=== PATIENT | female | born 1930 | race African-American/Black ===

== ENCOUNTER 2017-06-06 22:05 | Inpatient (IN) | payer MEDICARE, BC, MEDICAID ==
[~2017-06-06] VITALS: Ht 167.6 cm; Wt 52.2 kg
[~2017-06-06 22:05] MED LIST: ACETAMINOP500 MG/51 ORAL; ACETAMINOPHEN-1 EAC1 ORAL; ALBUTEROL2.5 MG/3 M INH; ALLEGRA ALLERGY60 M1 PO; AMBIEN5 MG ORAL; ASPIRIN81 MG ORAL; ATIVAN0.5 MG ORAL; ATROVENT HFA12.9 GM IH; CALCIUM 500 +1 EAC7 PO; CALMOSEPTINE O3.5 G1 TP; CEFTAZIDIM1 GM/50 ML IVPB; CELEBREX200 MG ORAL; CILOXAN 0.3% O1 DROP RIGHT EYE; CIPROFLOXACIN500 M2 ORAL; COLACE100 MG ORAL; COZAAR50 MG ORAL; DIURIL25 MG ORAL; FLEET ENEMA133 ML RECTAL; FLONASE16 GM NASAL; GABAPENTIN100 MG ORAL; GABAPENTIN300 MG/61 ORAL; IBUPROFEN200 MG ORAL; IBUPROFEN600 MG ORAL; IBUPROFEN800 MG PO; LEVOFLOXACIN500 MG ORAL; LORATADINE10 M2 PO; MELATONIN3 MG ORAL; MELOXICAM7.5 MG PO; MIRALAX17 G2 ORAL; MOM30 ML ORAL; MOM30 ML PO; MOTRIN400 MG PO; MULTIVITAMIN PO; MULTIVITAMINS1 EAC8 ORAL; MYLANTA30 M1 PO; NEURONTIN100 MG ORAL; NITROFURANTOIN100 M2 ORAL; OMEPRAZOLE20 M2 ORAL; PERCOCET 5-3251 EACH ORAL; PRO STAT ORAL; PROMETHAZINE V237 ML ORAL; RANITIDINE HCL150 MG ORAL; REFRESH TEARS15 ML OP; SINEMET 25-1001 EAC1 ORAL; SINEMET 25-1001 EAC1 PO; SINEMET 25/1001 EA ORAL; SPIRIVA18 MCG INH; TRIPLE ANTIBIO1 EAC1 TP; TYLENOL325 MG ORAL; VANCOMYCIN1 GM/2502 IVPB; VENTOLIN HFA18 GM INH; VICODIN 5-5001 EACH PO; ZANTAC150 MG GT; ZINC OXIDE30 GM TOPIC; ZOFRAN4 M3 ORAL; ZOVIRAX800 MG ORAL; [UNRECOGNIZED DRUG - OTHER] PO; [UNRECOGNIZED DRUG - OTHER] PO
[2017-06-06] MEDS ORDERED: SINEMET 25-1001 EAC1 GT (22:06)
[2017-06-06] MEDS ORDERED: MAGNESIUM500 MG GT (22:06)
[2017-06-06] MEDS ORDERED: MIRALAX17 G2 GT (22:06)
[2017-06-06] MEDS ORDERED: LOSARTAN POTASS50 MG GT (22:06)
[2017-06-06] MEDS ORDERED: MULTIVITAMINS1 EAC2 GT (22:06)
[2017-06-06] MEDS ORDERED: Albuterol ud Inhalation HHN ONE (22:15)
--- NOTE | 2017-06-06 22:22 | Emergency Room Report ---
History of Present Illness General Chief Complaint: Upper Respiratory Illness Source: Medical Record, EMS Present Illness HPI Is an 86-year-old female with multiple medical problems. This include CVA/TIA. She is bed bound and in a [place] [facility]. At baseline she is confused. She presents with chief complaint of congestion and respiratory distress. Onset for one day. Increasing coughing. Increasing hypoxia with a low of 90% on room air. No fever or chills. No nausea no vomiting. Allergies: Coded Allergies: CODEINE (Verified Allergy, Unknown, 04/13/17) LORAZEPAM (Verified Allergy, Unknown, 04/11/17) reaction unknown MEPERIDINE (Unverified Allergy, Unknown, 09/03/14) PENICILLINS (Verified Allergy, Unknown, 03/06/13) SULFA (SULFONAMIDE ANTIBIOTICS) (Verified Allergy, Unknown, 03/06/13) Patient History Past Medical History: see triage record, old chart reviewed, HTN, AFib, CVA/TIA Past Surgical History: other Pertinent Family History: none Social History: Denies: smoking Now: No Immunizations: other Reviewed Nursing Documentation: PMH: Agreed, PSxH: Agreed Nursing Documentation-PMH Past Medical History: No History, Except For Hx Hypertension: Yes Hx Pacemaker: No Hx Asthma: No Hx COPD: Yes - Respiratory failure Hx Diabetes: No Hx Cancer: No Hx Gastrointestinal Problems: Yes - dysphagia, G-tube, GERD Hx Dialysis: No History Of Psychiatric Problem: Yes - Alzheimers Hx Neurological Problems: Yes - Parkinsons Hx Cerebrovascular Accident: Yes Hx Dementia: Yes Hx Parkinson's Disease: Yes Hx Seizures: No Hx Spinal Cord Injury: Yes Hx Speech Problem: Yes Hx Dizziness: Yes Hx Headaches: Yes Hx Dysphasia: Yes Hx Weakness: Yes Hx Fatigue: Yes Review of Systems Eye: Denies: blurred vision, eye pain ENT: Denies: ear pain, nose congestion, throat swelling Respiratory: Reports: cough, shortness of breath Cardiovascular: Denies: chest pain, palpitations Gastrointestinal: Denies: abdominal pain, diarrhea, nausea, vomiting Musculoskeletal: Denies: back pain, joint pain Skin: Denies: rash Neurological: Denies: headache, numbness Endocrine: Denies: increased thirst, increased urine Hematologic/Lymphatic: Denies: easy bruising All Other Systems: negative except mentioned in HPI Physical Exam Vital Signs Date Time Temp Pulse Resp B/P Pulse Ox O2 Delivery O2 Flow Rate FiO2 06/06/17 21:53 97.2 88 18 147/73 97 Nasal Cannula 3.0 vitals with hypoxia Sp02 EP Interpretation: abnormal General Appearance: mild distress Head: normocephalic, atraumatic Eyes: bilateral eye other - Eyes are closed ENT: hearing grossly normal, normal pharynx Neck: full range of motion, supple, no meningismus Respiratory: chest non-tender, rhonchi Cardiovascular #1: regular rate, rhythm, no murmur Gastrointestinal: normal bowel sounds, non tender, no mass, no organomegaly, no bruit, non-distended Musculoskeletal: other - Contracted Skin: warm/dry Medical Decision Making Diagnostic Impression: Primary Impression: Upper respiratory infection Qualified Codes: J06.9 - Acute upper respiratory infection, unspecified Additional Impressions: Pneumonia Qualified Codes: J18.1 - Lobar pneumonia, unspecified organism UTI (urinary tract infection) Qualified Codes: N30.00 - Acute cystitis without hematuria Proteinuria Qualified Codes: R80.9 - Proteinuria, unspecified ER Course Patient presents with a cough. Most likely aspiration pneumonia versus viral etiology. White count normal. She has purulent urine output with a Tucker. She grew out Escherichia coli in the past. Sputum in the past rule out MRSA and Pseudomonas. Patient placed on cefepime and vancomycin. She is more alert after IV fluid. Will admit for further workup. I discussed the case with Dr. Cordova for admission and Dr. Cunningham orders. Laboratory Tests Test 06/06/17 22:00 06/06/17 22:25 White Blood Count 9.1 K/UL (4.8-10.8) Red Blood Count 3.51 M/UL (4.20-5.40) L Hemoglobin 12.1 G/DL (12.0-16.0) Hematocrit 34.6 % (37.0-47.0) L Mean Corpuscular Volume 99 FL (80-99) Mean Corpuscular Hemoglobin 34.4 PG (27.0-31.0) H Mean Corpuscular Hemoglobin Concent 34.9 G/DL (32.0-36.0) Red Cell Distribution Width 13.0 % (11.6-14.8) Platelet Count 478 K/UL (150-450) H Mean Platelet Volume 6.4 FL (6.5-10.1) L Neutrophils (%) (Auto) 78.5 % (45.0-75.0) H Lymphocytes (%) (Auto) 17.0 % (20.0-45.0) L Monocytes (%) (Auto) 3.6 % (1.0-10.0) Eosinophils (%) (Auto) 0.1 % (0.0-3.0) Basophils (%) (Auto) 0.8 % (0.0-2.0) Prothrombin Time 10.8 SEC (9.30-11.50) Prothromb Time International Ratio 1.0 (0.9-1.1) Activated Partial Thromboplast Time 32 SEC (23-33) Sodium Level 130 mEQ/L (135-145) L Potassium Level 4.3 mEQ/L (3.4-4.9) Chloride Level 85 mEQ/L (98-107) L Carbon Dioxide Level 30 mEQ/L (20-30) Anion Gap 15 (5-15) Blood Urea Nitrogen 13 mg/dL (7-23) Creatinine 0.4 mg/dL (0.5-0.9) L Estimat Glomerular Filtration Rate mL/min (>60) Glucose Level 163 mg/dL (74-106) H Lactic Acid Level 1.30 mmol/L (0.66-2.22) Calcium Level 9.7 mg/dL (8.6-10.2) Total Bilirubin 0.3 mg/dL (0.0-1.2) Aspartate Amino Transf (AST/SGOT) 27 U/L (5-40) Alanine Aminotransferase (ALT/SGPT) 8 U/L (3-33) Alkaline Phosphatase 94 U/L (35-104) Total Creatine Kinase 54 U/L (26-140) Creatine Kinase MB 2.5 ng/mL (< 3.8) Creatine Kinase MB Relative Index 4.6 Troponin I < 0.30 ng/mL (<=0.30) Pro-B-Type Natriuretic Peptide 229 pg/mL (0-450) Total Protein 7.5 g/dL (6.6-8.7) Albumin 3.3 g/dL (3.5-5.2) L Globulin 4.2 g/dL Albumin/Globulin Ratio 0.7 (1.0-2.7) L Urine Color Pale yellow Urine Appearance Very cloudy Urine pH 7 (4.5-8.0) Urine Specific [place] 1.010 (1.005-1.035) Urine Protein 3+ (NEGATIVE) H Urine Glucose (UA) Negative (NEGATIVE) Urine Ketones Negative (NEGATIVE) Urine Occult Blood 4+ (NEGATIVE) H Urine Nitrite Negative (NEGATIVE) Urine Bilirubin Negative (NEGATIVE) Urine Urobilinogen Normal MG/DL (0.0-1.0) Urine Leukocyte Esterase 3+ (NEGATIVE) H Urine RBC Tntc /HPF (0 - 2) H Urine WBC Tntc /HPF (0 - 2) H Urine Squamous Epithelial Cells Few /LPF (NONE/OCC) Urine Bacteria Many /HPF (NONE) H Urine Yeast Many /HPF (NONE) H Lab Results Impression labs unremarkable EKG Diagnostic Results EKG Time: 22:21 Rate: normal Rhythm: NSR ST Segments: no acute changes Rhythm Strip Diag. Results Rhythm Strip Time: 22:21 EP Interpretation: yes Rate: 90 Rhythm: NSR, no PVC's, no ectopy Chest X-Ray Diagnostic Results Chest X-Ray Diagnostic Results : Chest X-Ray Ordered: Yes # of Views/Limited/Complete: 1 View Indication: Shortness of Breath EP Interpretation: Yes Interpretation: no effusion, no pneumothorax, other - Atelectasis right lower lobe Impression: Other - Atelectasis Interpreting ER Provider: Electronically signed by Juwan Cortez MD Last Vital Signs Date Time Temp Pulse Resp B/P Pulse Ox O2 Delivery O2 Flow Rate FiO2 06/06/17 21:53 97.2 88 18 147/73 97 Nasal Cannula 3.0 Status: improved Disposition: ADMITTED INPATIENT Condition: Serious JUWAN CORTEZ M.D. Jun 06, 2017 22:22
[2017-06-06 22:29] VITALS: BP 147/47
[2017-06-06 22:38] LABS: BASOPHILS % (AUTO) 0.8 % (0.0-2.0); EOSINOPHILS % (AUTO) 0.1 % (0.0-3.0); MEAN CORPUSCULAR HEMOGLOBIN 34.4 PG (27.0-31.0); MEAN CORPUSCULAR HGB CONC 34.9 G/DL (32.0-36.0); MEAN CORPUSCULAR VOLUME 99 FL (80-99); MEAN PLATELET VOLUME 6.4 FL (6.5-10.1); MONOCYTES % (AUTO) 3.6 % (1.0-10.0); NEUTROPHILS % (AUTO) 78.5 % (45.0-75.0); PLATELET COUNT 478 K/UL (150-450); RED BLOOD COUNT 3.51 M/UL (4.20-5.40); WHITE BLOOD COUNT 9.1 K/UL (4.8-10.8)
[2017-06-06] MEDS ORDERED: Vancomycin 1gm inj IVPB ONE (22:40)
[2017-06-06] MEDS ORDERED: Cefepime 1gm vial ONE (22:40)
[2017-06-06] MEDS ORDERED: Vancomycin 1 GM in NS 275 ML IVPB ONE (22:45)
[2017-06-06] MEDS ORDERED: Cefepime HCl 1 GM in D5W 55 ML IVPB ONE (22:45)
[2017-06-06 22:52] LABS: APPEARANCE,URINE VERY CLOUDY; KETONES,URINE NEGATIVE (NEGATIVE); LEUKOCYTE ESTERASE ,URINE 3+ (NEGATIVE); NITRITE,URINE NEGATIVE (NEGATIVE); PH,URINE 7 (4.5-8.0); PROTEIN,URINE 3+ (NEGATIVE); UROBILINOGEN,URINE NORMAL MG/DL (0.0-1.0)
[2017-06-06 22:53] LABS: TROPONIN I < 0.30 ng/mL (<=0.30)
[2017-06-06 23:00] VITALS: BP 127/74
[2017-06-06 23:03] LABS: PROTHROMBIN TIME 10.8 SEC (9.30-11.50)
[2017-06-06 23:09] LABS: RBC,URINE TNTC /HPF (0 - 2)
[2017-06-06 23:10] LABS: BACTERIA,URINE MANY /HPF; SQUAMOUS EPITHELIAL CELL,UR FEW /LPF (NONE/OCC); WBC,URINE TNTC /HPF (0 - 2); YEAST,URINE MANY /HPF
[2017-06-06 23:10] LABS: ALANINE AMINOTRANSFERASE 8 U/L (3-33); ALBUMIN/GLOBULIN RATIO 0.7 (1.0-2.7); ANION GAP 15 (5-15); ASPARTATE AMINO TRANSFERASE 27 U/L (5-40); CALCIUM 9.7 mg/dL (8.6-10.2); CARBON DIOXIDE 30 mEQ/L (20-30); CHLORIDE 85 mEQ/L (98-107); CREATININE 0.4 mg/dL (0.5-0.9); HEMOLYSIS 89; POTASSIUM 4.3 mEQ/L (3.4-4.9); SODIUM 130 mEQ/L (135-145); TOTAL PROTEIN 7.5 g/dL (6.6-8.7)
[2017-06-06 23:20] LABS: CKMB 2.5 ng/mL (< 3.8)
[2017-06-07] VITALS (7 sets, daily range): BP systolic 118–158; BP diastolic 66–85
[2017-06-07] MEDS: Losartan 50mg tab GT SCH (08:51)
[2017-06-07] MEDS: Sinemet 25/100 tab GT SCH ×3 (08:52→18:00)
[2017-06-07] MEDS ORDERED: Miralax 17gm pkt GT SCH (09:00)
[2017-06-07] MEDS ORDERED: Cefepime 2gm/D5W 110ml IV SCH ×2 (09:00)
[2017-06-07] MEDS ORDERED: Miralax 17gm pkt ORAL PRN (11:30)
--- NOTE | 2017-06-07 11:42 | Consultation ---
History of Present Illness General Date patient seen: Jun 07, 2017 Chief Complaint: Upper Respiratory Illness Referring physician: Dr. echeverria Reason for Consultation: Dyspnea Present Illness HPI 86-year-old female with multiple medical problems including [id number] , Gtube, cachexia, bed bound, CVA/TIA, [place] [facility] resident presented with chief complaint of congestion and respiratory distress for one day. Pt cant' give any history and all information is obtained from the chart. Allergies: Coded Allergies: CODEINE (Verified Allergy, Unknown, 04/13/17) LORAZEPAM (Verified Allergy, Unknown, 04/11/17) reaction unknown MEPERIDINE (Unverified Allergy, Unknown, 09/03/14) PENICILLINS (Verified Allergy, Unknown, 03/06/13) SULFA (SULFONAMIDE ANTIBIOTICS) (Verified Allergy, Unknown, 03/06/13) Medication History Scheduled Carbidopa/Levodopa 25-100 Mg* (Sinemet 25-100 Mg Tablet*), 1 TAB GT THREE TIMES A DAY, (Reported) Losartan Potassium* (Losartan Potassium*), 50 MG GT DAILY, (Reported) Multivitamins* (Multivitamins*), 1 TAB GT DAILY, (Reported) Polyethylene Glycol 3350* (Miralax*), 17 GM GT DAILY, (Reported) Miscellaneous Medications Magnesium Oxide (Magnesium), 800 MG GT, (Reported) Discontinued Medications Acetaminophen (Acetaminophen), 650 MG ORAL Q4H, (Reported) Discontinued Reason: Therapy completed Acyclovir* (Zovirax*), 800 MG ORAL THREE TIMES A DAY, (Reported) Discontinued Reason: Therapy completed Carbidopa/Levodopa 25-100 Mg* (Sinemet 25-100 Mg Tablet*), 1 TAB ORAL THREE TIMES A DAY, (Reported) Discontinued Reason: Therapy completed Docusate Sodium* (Colace*), 100 MG ORAL DAILY, (Reported) Discontinued Reason: Therapy completed Gabapentin* (Gabapentin*), 100 MG ORAL THREE TIMES A DAY, (Reported) Discontinued Reason: Therapy completed Ipratropium [place] (Atrovent Hfa), 12.9 GM IH, (Reported) Discontinued Reason: Therapy completed Levofloxacin (Levofloxacin*), 500 MG ORAL DAILY Discontinued Reason: Therapy completed Lorazepam* (Ativan*), 0.5 MG ORAL Q4HR PRN for For Anxiety, (Reported) Discontinued Reason: Therapy completed Losartan Potassium* (Cozaar*), 50 MG ORAL DAILY, (Reported) Discontinued Reason: Therapy completed Magnesium Hydroxide (Milk of Magnesia), 30 ML ORAL HS PRN for Constipation, ( Reported) Discontinued Reason: Therapy completed Meloxicam* (Meloxicam*), 7.5 MG PO DAILY, (Reported) Discontinued Reason: Therapy completed Menthol/Zinc Oxide (Calmoseptine Ointment), 3.5 GM TP, (Reported) Discontinued Reason: Therapy completed Neomy Sulf/Bacitrac Zn/Poly (Triple Antibiotic Ointment), 1 EACH TP, (Reported) Discontinued Reason: Therapy completed Omeprazole (Omeprazole), 20 MG ORAL DAILY, (Reported) Discontinued Reason: Therapy completed Ondansetron* (Zofran*), 4 MG ORAL Q6H PRN for Nausea & Vomiting, (Reported) Discontinued Reason: Therapy completed Polyethylene Glycol 3350* (Miralax*), 17 GM ORAL QHS PRN for Constipation, ( Reported) Discontinued Reason: Therapy completed Ranitidine Hcl* (Zantac*), 150 MG ORAL HS, (Reported) Discontinued Reason: Therapy completed Ranitidine Hcl* (Zantac*), 150 MG GT TWICE A DAY, (Reported) Discontinued Reason: Therapy completed Tiotropium [place]* (Spiriva*), 1 PUFF INH DAILY, (Reported) Discontinued Reason: Therapy completed Vancomycin Hcl/D5w (Vancomycin-D5w 1 G/250 Ml), 1 GM IVPB Q24H Discontinued Reason: Therapy completed Zinc Oxide* (Zinc Oxide*), 1 APPLIC TOPIC FOUR TIMES A DAY, (Reported) Discontinued Reason: Therapy completed Zolpidem Tartrate* (Ambien*), 5 MG ORAL BEDTIME PRN for Insomnia, (Reported) Discontinued Reason: Therapy completed [multivit w/min], 1 TAB PO DAILY, (Reported) Discontinued Reason: Therapy completed Patient History Healthcare decision maker LISA BURTON Resuscitation status Full Code Advanced Directive on File No Past Medical/Surgical History Past Medical/Surgical History: (1) Severe malnutrition (2) Compression fracture of T12 vertebra (3) Alzheimer's dementia (4) CVA (cerebral infarction) (5) Altered mental status (6) Parkinsons disease (7) COPD (chronic obstructive pulmonary disease) Review of Systems All Other Systems: negative except mentioned in HPI Physical Exam General Appearance: cachetic Lines, tubes and drains: peripheral, central line HEENT: normocephalic, atraumatic Neck: non-tender, normal alignment Respiratory/Chest: chest wall non-tender, lungs clear Breasts: no masses Cardiovascular/Chest: normal peripheral pulses Abdomen: normal bowel sounds, non tender Genitourinary/Rectal: normal genital exam, normal rectal exam Extremities: normal range of motion, non-tender Skin Exam: normal pigmentation, warm/dry 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 Last 24 Hour Vital Signs Date Time Temp Pulse Resp B/P Pulse Ox O2 Delivery O2 Flow Rate FiO2 06/07/17 08:51 155/71 06/07/17 08:00 82 06/07/17 08:00 97.9 63 30 155/71 95 Nasal Cannula 3.0 06/07/17 08:00 94 20 Nasal Cannula 3.0 32 06/07/17 07:55 Nasal Cannula 3.0 32 06/07/17 07:55 95 Nasal Cannula 3.0 32 06/07/17 04:00 97.9 75 20 152/66 100 Nasal Cannula 2.0 06/07/17 03:42 82 06/07/17 01:10 97.5 84 20 158/85 100 Nasal Cannula 3.0 06/07/17 01:00 99.7 86 22 138/78 98 Nasal Cannula 3.0 32 06/07/17 00:58 99.7 86 22 138/78 98 Nasal Cannula 3.0 06/06/17 23:00 87 15 127/74 98 Nasal Cannula 3.0 06/06/17 22:33 88 19 100 Nasal Cannula 3.0 32 06/06/17 22:29 92 21 Nasal Cannula 3.0 06/06/17 22:29 100.0 90 24 147/47 100 Nasal Cannula 3.0 06/06/17 22:18 92 21 Nasal Cannula 3.0 32 06/06/17 22:18 92 21 97 Nasal Cannula 3.0 32 06/06/17 21:53 97.2 88 18 147/73 97 Nasal Cannula 3.0 Intake and Output 06/06/17 06/07/17 19:00 07:00 Intake Total 55 ml Output Total 650 ml Balance -595 ml IV Total 55 ml Output Urine Total 650 ml Laboratory Tests Test 06/06/17 22:00 06/06/17 22:25 White Blood Count 9.1 K/UL (4.8-10.8) Red Blood Count 3.51 M/UL (4.20-5.40) L Hemoglobin 12.1 G/DL (12.0-16.0) Hematocrit 34.6 % (37.0-47.0) L Mean Corpuscular Volume 99 FL (80-99) Mean Corpuscular Hemoglobin 34.4 PG (27.0-31.0) H Mean Corpuscular Hemoglobin Concent 34.9 G/DL (32.0-36.0) Red Cell Distribution Width 13.0 % (11.6-14.8) Platelet Count 478 K/UL (150-450) H Mean Platelet Volume 6.4 FL (6.5-10.1) L Neutrophils (%) (Auto) 78.5 % (45.0-75.0) H Lymphocytes (%) (Auto) 17.0 % (20.0-45.0) L Monocytes (%) (Auto) 3.6 % (1.0-10.0) Eosinophils (%) (Auto) 0.1 % (0.0-3.0) Basophils (%) (Auto) 0.8 % (0.0-2.0) Prothrombin Time 10.8 SEC (9.30-11.50) Prothromb Time International Ratio 1.0 (0.9-1.1) Activated Partial Thromboplast Time 32 SEC (23-33) Sodium Level 130 mEQ/L (135-145) L Potassium Level 4.3 mEQ/L (3.4-4.9) Chloride Level 85 mEQ/L (98-107) L Carbon Dioxide Level 30 mEQ/L (20-30) Anion Gap 15 (5-15) Blood Urea Nitrogen 13 mg/dL (7-23) Creatinine 0.4 mg/dL (0.5-0.9) L Estimat Glomerular Filtration Rate mL/min (>60) Glucose Level 163 mg/dL (74-106) H Lactic Acid Level 1.30 mmol/L (0.66-2.22) Calcium Level 9.7 mg/dL (8.6-10.2) Total Bilirubin 0.3 mg/dL (0.0-1.2) Aspartate Amino Transf (AST/SGOT) 27 U/L (5-40) Alanine Aminotransferase (ALT/SGPT) 8 U/L (3-33) Alkaline Phosphatase 94 U/L (35-104) Total Creatine Kinase 54 U/L (26-140) Creatine Kinase MB 2.5 ng/mL (< 3.8) Creatine Kinase MB Relative Index 4.6 Troponin I < 0.30 ng/mL (<=0.30) Pro-B-Type Natriuretic Peptide 229 pg/mL (0-450) Total Protein 7.5 g/dL (6.6-8.7) Albumin 3.3 g/dL (3.5-5.2) L Globulin 4.2 g/dL Albumin/Globulin Ratio 0.7 (1.0-2.7) L Urine Color Pale yellow Urine Appearance Very cloudy Urine pH 7 (4.5-8.0) Urine Specific [place] 1.010 (1.005-1.035) Urine Protein 3+ (NEGATIVE) H Urine Glucose (UA) Negative (NEGATIVE) Urine Ketones Negative (NEGATIVE) Urine Occult Blood 4+ (NEGATIVE) H Urine Nitrite Negative (NEGATIVE) Urine Bilirubin Negative (NEGATIVE) Urine Urobilinogen Normal MG/DL (0.0-1.0) Urine Leukocyte Esterase 3+ (NEGATIVE) H Urine RBC Tntc /HPF (0 - 2) H Urine WBC Tntc /HPF (0 - 2) H Urine Squamous Epithelial Cells Few /LPF (NONE/OCC) Urine Bacteria Many /HPF (NONE) H Urine Yeast Many /HPF (NONE) H Height (Feet): 5 Height (Inches): 6.00 Weight (Pounds): 115 Medications Current Medications Medications (Trade) Dose Ordered Sig/Mikaela Route PRN Reason Start Time Stop Time Status Last Admin Dose Admin Carbidopa/Levodopa (Sinemet 25/100) 1 ea THREE TIMES A DAY GT 06/07/17 09:00 07/07/17 08:59 06/07/17 08:52 Cefepime HCl 2 gm/ Dextrose 110 ml @ 220 mls/hr EVERY 12 HOURS IV 06/07/17 09:00 06/14/17 08:59 06/07/17 08:52 Losartan Potassium (Cozaar) 50 mg DAILY GT 06/07/17 09:00 07/07/17 08:59 06/07/17 08:51 Ondansetron HCl (Zofran) 4 mg Q6H PRN IVP Nausea & Vomiting 7/31/17 00:30 07/07/17 00:29 Polyethylene Glycol (Miralax) 17 gm DAILY GT 06/07/17 09:00 07/07/17 08:59 06/07/17 08:52 Vancomycin HCl 1 ea 1 ea DAILY PRN MISC Per rx protocol 06/07/17 04:00 07/07/17 03:59 Vancomycin HCl/ Dextrose (Vancomycin/D5W) 275 ml @ 183.708 mls/hr Q24H IVPB 06/07/17 23:00 06/12/17 22:59 Assessment/Plan Problem List: (1) Aspiration pneumonia ICD Codes: J69.0 - Pneumonitis due to inhalation of food and vomit SNOMED: 517169146 (2) UTI (urinary tract infection) ICD Codes: N39.0 - Urinary tract infection, site not specified SNOMED: 74960394 (3) COPD (chronic obstructive pulmonary disease) ICD Codes: J44.9 - Chronic obstructive pulmonary disease, unspecified SNOMED: 10087048 (4) Feeding by G-tube ICD Codes: Z93.1 - Gastrostomy status SNOMED: 252297269, 716333081 (5) Severe malnutrition ICD Codes: E43 - Unspecified severe protein-calorie malnutrition SNOMED: 03680374 (6) Parkinsons disease ICD Codes: G20 - Parkinson's disease SNOMED: 84561186 Assessment/Plan sullivan cultures IV antibiotics chest PT sputum for c/s respiratory treatment consider family meeting to change the code status. She needs to be DNR. LEELEE ADLER Jun 07, 2017 11:42
[2017-06-07] MEDS: DuoNeb 0.5-3(2.5)mg/3ml neb HHN SCH ×2 (12:23→19:41)
--- NOTE | 2017-06-07 13:13 | Wound Care Consultation ---
Wound Assessment Wound Assessment #1: Wound Present on Admission: Yes New Wound: No Status Change of Wound: No Wound Location Body Site Modif: left Wound Location Body Site: sacral Wound Type: pressure ulcer Olimpia Test: Does not Olimpia Pressure Ulcer Stage: III - resolving Wound Thickness: Full Thickness Wound Length: 2.0 Wound Width: 2.0 Wound Depth: <0.1 Percent of Wound [place]/Red: 100 Wound Drainage Amount: None Wound Drainage Odor: None/Absent Tissue Surrounding Wound: Macerated Wound General Appearance: Reddened Wound Assessment #2: Wound Number: #2 Wound Present on Admission: Yes New Wound: No Status Change of Wound: No Wound Location Body Site Modif: mid Wound Location Body Site: sacral Wound Type: pressure ulcer Olimpia Test: Does not Olimpia Pressure Ulcer Stage: I - noted site with fullthickness scar tissue Wound Length: 1.0 Wound Width: 1.0 Percent of Wound [place]/Red: 100 Wound Drainage Amount: None Wound Drainage Odor: None/Absent Tissue Surrounding Wound: Erythemic - intact Wound General Appearance: Reddened Wound Comment #1 left sacral pressure ulcer stage III (resolving). #2 Mid sacral pressure ulcer stage I noted with full thickness scar tissue. Recommendation. -Local wound care as ordered. -Apply low air loss SPR mattress. -Turn and reposition. -Keep clean and dry. -Optimize nutrition. -Offload affected sites. -Offload heels and both feet. -Avoid shear and friction. -Assess and notify MD for any change of condition noted to skin. NOEMY PEDERSEN Jun 07, 2017 13:13
--- NOTE | 2017-06-07 13:31 | Consultation ---
Consult Note Consult Note asked to eval for hyponatremia- Under my care at [facility] - Being treated for C dif Coded Allergies: MEPERIDINE (Unverified Allergy, Unknown, 09/03/14) PENICILLINS (Verified Allergy, Unknown, 03/06/13) SULFA (SULFONAMIDE ANTIBIOTICS) (Verified Allergy, Unknown, 03/06/13) Past Medical History: HTN, CVA/TIA, dementia Hx Cardiac Problems: Yes Hx Hypertension: Yes Hx COPD: Yes - HYPOTHYROIDISM Hx Gastrointestinal Problems: Yes Hx Cerebrovascular Accident: Yes Hx Dementia: Yes Hx Parkinson's Disease: Yes Hx Speech Problem: Yes - Slured Hx Dysphasia: Yes Hx Weakness: Yes PAST HISTORY_ 1. Altered level of consciousness, l 2. History of fall and left shoulder pain probably secondary to rotator cuff tear, left shoulder osteoarthritis. 3. Hypertension. 4. Parkinson. 5. Right-sided Ruiz palsy. 6. Thyroid disease with history of goiter, status post treatment. 7. Bilateral hip replacements. 8. Spinal stenosis. 9. PEG Examined- Data reviewed Assessment/Plan status: 1) Aspiration pneumonia (2) UTI (urinary tract infection) (3) COPD (chronic obstructive pulmonary disease) (4) Feeding by G-tube (5) Severe malnutrition (6) Parkinsons disease (7) HypoThyroidism (8) C dif (9) Low na , h/o SIADH Plan; Vanco GT Stool C dif Urine studies Monitor lytes Per consultants JANUARY KEY Jun 07, 2017 13:31
[2017-06-07] MEDS ORDERED: Sterile Water Irrig 1000ml IRRIG ONE (14:06)
[2017-06-07] MEDS ORDERED: NS 275ml ONE (14:06)
[2017-06-07] MEDS ORDERED: Tubing IV Secondary IV ONE (14:06)
--- NOTE | 2017-06-07 14:31 | Cardiac Electrophysiology PN ---
Subjective Subjective [id number] Objective Last 24 Hour Vital Signs Date Time Temp Pulse Resp B/P Pulse Ox O2 Delivery O2 Flow Rate FiO2 06/07/17 12:33 88 19 98 Nasal Cannula 3.0 32 06/07/17 12:25 90 18 95 Nasal Cannula 3.0 32 06/07/17 12:00 97.7 79 26 118/79 96 Nasal Cannula 3.0 06/07/17 12:00 78 06/07/17 08:51 155/71 06/07/17 08:00 82 06/07/17 08:00 97.9 63 30 155/71 95 Nasal Cannula 3.0 06/07/17 08:00 94 20 Nasal Cannula 3.0 32 06/07/17 07:55 Nasal Cannula 3.0 32 06/07/17 07:55 95 Nasal Cannula 3.0 32 06/07/17 04:00 97.9 75 20 152/66 100 Nasal Cannula 2.0 06/07/17 03:42 82 06/07/17 01:10 97.5 84 20 158/85 100 Nasal Cannula 3.0 06/07/17 01:00 99.7 86 22 138/78 98 Nasal Cannula 3.0 32 06/07/17 00:58 99.7 86 22 138/78 98 Nasal Cannula 3.0 06/06/17 23:00 87 15 127/74 98 Nasal Cannula 3.0 06/06/17 22:33 88 19 100 Nasal Cannula 3.0 32 06/06/17 22:29 92 21 Nasal Cannula 3.0 06/06/17 22:29 100.0 90 24 147/47 100 Nasal Cannula 3.0 06/06/17 22:18 92 21 Nasal Cannula 3.0 32 06/06/17 22:18 92 21 97 Nasal Cannula 3.0 32 06/06/17 21:53 97.2 88 18 147/73 97 Nasal Cannula 3.0 Intake and Output 06/06/17 06/07/17 19:00 07:00 Intake Total 55 ml Output Total 650 ml Balance -595 ml IV Total 55 ml Output Urine Total 650 ml Laboratory Tests Test 06/06/17 22:00 06/06/17 22:25 White Blood Count 9.1 K/UL (4.8-10.8) Red Blood Count 3.51 M/UL (4.20-5.40) L Hemoglobin 12.1 G/DL (12.0-16.0) Hematocrit 34.6 % (37.0-47.0) L Mean Corpuscular Volume 99 FL (80-99) Mean Corpuscular Hemoglobin 34.4 PG (27.0-31.0) H Mean Corpuscular Hemoglobin Concent 34.9 G/DL (32.0-36.0) Red Cell Distribution Width 13.0 % (11.6-14.8) Platelet Count 478 K/UL (150-450) H Mean Platelet Volume 6.4 FL (6.5-10.1) L Neutrophils (%) (Auto) 78.5 % (45.0-75.0) H Lymphocytes (%) (Auto) 17.0 % (20.0-45.0) L Monocytes (%) (Auto) 3.6 % (1.0-10.0) Eosinophils (%) (Auto) 0.1 % (0.0-3.0) Basophils (%) (Auto) 0.8 % (0.0-2.0) Prothrombin Time 10.8 SEC (9.30-11.50) Prothromb Time International Ratio 1.0 (0.9-1.1) Activated Partial Thromboplast Time 32 SEC (23-33) Sodium Level 130 mEQ/L (135-145) L Potassium Level 4.3 mEQ/L (3.4-4.9) Chloride Level 85 mEQ/L (98-107) L Carbon Dioxide Level 30 mEQ/L (20-30) Anion Gap 15 (5-15) Blood Urea Nitrogen 13 mg/dL (7-23) Creatinine 0.4 mg/dL (0.5-0.9) L Estimat Glomerular Filtration Rate mL/min (>60) Glucose Level 163 mg/dL (74-106) H Lactic Acid Level 1.30 mmol/L (0.66-2.22) Calcium Level 9.7 mg/dL (8.6-10.2) Total Bilirubin 0.3 mg/dL (0.0-1.2) Aspartate Amino Transf (AST/SGOT) 27 U/L (5-40) Alanine Aminotransferase (ALT/SGPT) 8 U/L (3-33) Alkaline Phosphatase 94 U/L (35-104) Total Creatine Kinase 54 U/L (26-140) Creatine Kinase MB 2.5 ng/mL (< 3.8) Creatine Kinase MB Relative Index 4.6 Troponin I < 0.30 ng/mL (<=0.30) Pro-B-Type Natriuretic Peptide 229 pg/mL (0-450) Total Protein 7.5 g/dL (6.6-8.7) Albumin 3.3 g/dL (3.5-5.2) L Globulin 4.2 g/dL Albumin/Globulin Ratio 0.7 (1.0-2.7) L Urine Color Pale yellow Urine Appearance Very cloudy Urine pH 7 (4.5-8.0) Urine Specific [place] 1.010 (1.005-1.035) Urine Protein 3+ (NEGATIVE) H Urine Glucose (UA) Negative (NEGATIVE) Urine Ketones Negative (NEGATIVE) Urine Occult Blood 4+ (NEGATIVE) H Urine Nitrite Negative (NEGATIVE) Urine Bilirubin Negative (NEGATIVE) Urine Urobilinogen Normal MG/DL (0.0-1.0) Urine Leukocyte Esterase 3+ (NEGATIVE) H Urine RBC Tntc /HPF (0 - 2) H Urine WBC Tntc /HPF (0 - 2) H Urine Squamous Epithelial Cells Few /LPF (NONE/OCC) Urine Bacteria Many /HPF (NONE) H Urine Yeast Many /HPF (NONE) H TAY MONTELONGO Jun 07, 2017 14:31
[2017-06-07] MEDS: Vancomycin oral 125mg/2.5ml ORAL SCH ×3 (15:33→21:00)
--- NOTE | 2017-06-07 16:16 | Diagnostic Imaging Report ---
Indication: SOB Technique: One view of the chest Comparison: 612.17 Findings: Effusion is no longer evident. There is some consolidation or atelectasis at the left lung base. The left upper lung, right lung and pleural space are clear. Degenerative changes of both shoulders are again noted. Impression: Minimal parenchymal disease at the left lung base. Correlate with clinical findings No acute cardiopulmonary process otherwise. Other findings as noted
--- NOTE | 2017-06-07 18:02 | Cardiology Report ---
APPROVED REPORT EXAM: Two-dimensional and M-mode echocardiogram with Doppler and color Doppler. INDICATION Hypertensive heart disease M-Mode DIMENSIONS IVSd0.9 (0.7-1.1cm)Left Atrium (MM)2.4 (1.6-4.0cm) LVDd3.4 (3.5-5.6cm)Aortic Root2.7 (2.0-3.7cm) PWd0.9 (0.7-1.1cm)Aortic Cusp Exc.1.6 (1.5-2.0cm) LVDs1.4 (2.5-4.0cm) PWs0.8 cm Normal left ventricular chamber size, systolic function and wall motion. Left ventricular ejection fraction estimated to be 60-65%. Mild left ventricular hypertrophy. No evidence of pericardial fat or effusion. Right cardiac chamber sizes are within normal limits. Mild left atrial enlargement by 2D. Focal aortic valve sclerosis with adequate cusp excursion Thickened mitral valve leaflets with normal excursion. Mitral annulus and aortic root calcification. Pulmonic valve not well visualized. Normal tricuspid valve structure. IVC not obtainable due to GI tube. A color flow and spectral Doppler study was performed and revealed: No aortic regurgitation. Mild mitral regurgitation. Left ventricular diastolic dysfunction grade 1. Mild tricuspid regurgitation. Tricuspid systolic velocities suggests peak right ventricular systolic pressure of 34 mmHg
--- NOTE | 2017-06-07 18:07 | Cardiology Report ---
APPROVED REPORT EKG Measurement Heart [id number] Sinus rhythm Left axis deviation Moderate voltage criteria for LVH, may be normal variant Cannot rule out Septal infarct, age undetermined T wave abnormality, consider anterior ischemia Abnormal ECG
[2017-06-07] MEDS ORDERED: D5NS 1,000 ML IV SCH (19:30)
[2017-06-07] MEDS: Heparin 5000 units/ml inj SUBQ SCH (21:00)
--- NOTE | 2017-06-07 22:00 | Consultation ---
DATE OF CONSULTATION: 06/07/2017 CARDIOLOGY CONSULTATION REFERRING PHYSICIAN: Gino Cordova M.D. HISTORY OF PRESENT ILLNESS: The patient is an 86-year-old lady with history of dementia, bedbound, history of CVA and TIA, and history of G-tube placement, who is a skilled nursing resident, was brought to the hospital for respiratory failure and congestion. The patient was evaluated by Dr. Cunningham, was started on antibiotic therapy. The patient also has history of hypertension and Cardiology consultation was obtained for further evaluation and management. At time my evaluation, the patient is unable to provide any meaningful information. Her daughter is at the bedside. REVIEW OF SYSTEMS: Cannot be obtained due to mental status. PAST MEDICAL HISTORY: 1. Hypertension. 2. . 3. Dysphagia, status post PEG placement. 4. The patient is a bed-bound. FAMILY HISTORY: Noncontributory. ALLERGIES: She is allergic to codeine, lorazepam, meperidine, penicillin and sulfa. MEDICATIONS: Reviewed per reconciliation sheet. SOCIAL HISTORY: The patient lives at skilled nursing under management of Dr. Ziegler. Does not smoke or drink alcohol. PHYSICAL EXAMINATION: VITAL SIGNS: Blood pressure is 118/79, pulse 80, and respirations 20. She is afebrile. HEAD AND NECK: Showed no JVD. LUNGS: Clear. CARDIOVASCULAR: Shows regular S1 and S2 with no gallop or murmur. ABDOMEN: Status post G-tube. EXTREMITIES: 1+ pitting edema. LABORATORY DATA: WBC 9.1, hemoglobin 12, hematocrit 34, and platelets 478,000. Sodium 130, potassium 4.3, BUN 13, and creatinine 0.4. Glucose 163. Troponin is negative. INR is 1. ASSESSMENT AND PLAN: 1. History of hypertension. Blood pressure is currently stable, on losartan 50 mg daily, that will be continued. 2. Dysphagia status post G-tube placement. 3. Sepsis, on cefepime and vancomycin, and albuterol. 4. Dementia. 5. Abnormal electrocardiogram with anterior ischemia on the EKG. However, the patient is currently nonverbal and does not have any chest pain. I will get an echocardiogram for further evaluation. Thank very much, Dr. Cordova, for allowing me to participate in the care of this patient. Please do not hesitate to contact me if you have any questions regarding my evaluation. Edy Zazueta M.D. DR: MYKEL JOB#: [id number] CC:
[2017-06-07] MEDS: Solu-MEDROL 125mg Inj IVP SCH (23:38)
[2017-06-07] MEDS: Vancomycin 750mg/D5W 275ml IVPB SCH ×2 (23:38)
[2017-06-08] VITALS (7 sets, daily range): BP systolic 122–150; BP diastolic 60–91
--- NOTE | 2017-06-08 00:30 | History and Physical Report ---
DATE OF ADMISSION: 06/06/2017 CHIEF COMPLAINT: The patient is an 86-year-old female, who presents with chief complaint of shortness of breath. HISTORY OF PRESENT ILLNESS: The patient is a resident of [facility]. According to staff at the assisted living facility, the patient began to experience shortness of breath. The patient herself is unable to contribute much to the History and Physical. The patient is grunting, ____ at this time. The patient presented to [place] emergency room. The patient is admitted for hypoxia with probable pneumonia. REVIEW OF SYSTEMS: Unable to asses secondary to the patient's mental status. PAST MEDICAL HISTORY: Significant for: 1. Hypertension. 2. Chronic obstructive pulmonary disease. 3. Hypothyroidism. 4. Alzheimer's dementia. 5. Parkinson disease. 6. Cerebrovascular disease, status post cerebrovascular accident. 7. Dysphagia. PAST SURGICAL HISTORY: Significant for G-tube placement. CURRENT MEDICATIONS: From [facility]: 1. Sinemet 25/100 mg one tablet per G-tube three times daily. 2. Lasix 20 mg per G-tube daily. 3. Multivitamin per G-tube daily. 4. Omeprazole 20 mg per G-tube daily. 5. Vitamin C per G-tube daily. 6. Zinc oxide per G-tube daily. 7. Tylenol 650 mg per G-tube every four hours p.r.n. 8. Albuterol 2.5 mg nebulized q.4 h. p.r.n. ALLERGIES: 1. CODEINE. 2. LORAZEPAM. 3. DEMEROL. 4. PENICILLIN. 5. SULFA. SOCIAL HISTORY: The patient is single and lives at [facility]. The patient denies tobacco or alcohol use. PHYSICAL EXAMINATION: VITAL SIGNS: Temperature is 97.7 degrees, respirations 26, pulse 79, and blood pressure 118/79. GENERAL: The patient is a well-developed and well-nourished female, who is ____. HEENT: Eyes, pupils are equal and responsive to light and accommodation. Extraocular movements are intact. NECK: Supple. No lymphadenopathy. CHEST: Lungs have crackles at bilateral bases. There is expiratory wheezing heard bilaterally. Otherwise, lungs are clear to auscultation bilaterally without wheezes or rales. CARDIOVASCULAR: Regular rhythm and rate. S1 and S2. No murmurs, rubs, or gallops. ABDOMEN: Soft, nontender, and nondistended. Positive bowel sounds. No evidence of hepatosplenomegaly. Currently, no rebound or guarding. EXTREMITIES: Negative for clubbing, cyanosis, or edema. RECTAL/GENITALIA: Deferred. NEUROLOGIC: Cranial nerves II through XII are grossly intact without focal deficits. LABORATORY STUDIES: Chest x-ray was reported as no acute cardiopulmonary disease. WBC 9.1, hemoglobin 12.1, hematocrit 34.6, and platelets 478,000. Sodium is 130, potassium 4.3, chloride 85, CO2 30, BUN 13, creatinine 0.4, and glucose 163. ASSESSMENT: This is an 86-year-old female. 1. Respiratory distress. 2. Chronic obstructive pulmonary disease, acute exacerbation. 3. Hypertension. 4. Hypothyroidism. 5. Alzheimer's dementia. 6. Parkinson disease. 7. Cerebrovascular disease. 8. Dysphagia. TREATMENT: 1. Respiratory distress/chronic obstructive pulmonary disease. 2. Pulmonary consultation with Dr. Gisella Cunningham. The patient has been placed on vancomycin and cefepime empirically for probable bronchitis. The patient may require Solu-Medrol. We will follow recommendations of Pulmonary. 3. Hypertension. The patient is currently normotensive, off medication. 4. Hypothyroidism. The patient will continue on Synthroid 0.125 mg one tablet p.o. daily. 5. Alzheimer's dementia. 6. Parkinson disease. Continue Sinemet as above. 7. History of cerebrovascular accident. 8. Dysphagia. The patient is status post G-tube. Donte Davila M.D. DR: SHARI JOB#: [id number] CC:
[2017-06-08] MEDS: DuoNeb 0.5-3(2.5)mg/3ml neb HHN SCH ×4 (01:05→19:38)
[2017-06-08] MEDS: Morphine Sulfate 2mg/ml Inj IVP PRN ×2 (01:21→09:42)
[2017-06-08 05:14] LABS: ABG PCO2 54.1 mmHg (35.0-45.0)
[2017-06-08 05:15] LABS: ABG BASE EXCESS 8.7
[2017-06-08 05:36] LABS: MEAN CORPUSCULAR HEMOGLOBIN 34.2 PG (27.0-31.0); MEAN CORPUSCULAR HGB CONC 34.1 G/DL (32.0-36.0); MEAN CORPUSCULAR VOLUME 100 FL (80-99); PLATELET COUNT 463 K/UL (150-450); RED BLOOD COUNT 3.33 M/UL (4.20-5.40); RED CELL DISTRIBUTION WIDTH 13.2 % (11.6-14.8); WHITE BLOOD COUNT 13.8 K/UL (4.8-10.8)
[2017-06-08 06:12] LABS: ALANINE AMINOTRANSFERASE 16 U/L (3-33); ALBUMIN/GLOBULIN RATIO 0.8 (1.0-2.7); ANION GAP 10 (5-15); ASPARTATE AMINO TRANSFERASE 17 U/L (5-40); CALCIUM 9.7 mg/dL (8.6-10.2); CARBON DIOXIDE 31 mEQ/L (20-30); CHLORIDE 91 mEQ/L (98-107); CHOLESTEROL 125 mg/dL (< 200); CHOLESTEROL/HDL RATIO 1.6 (3.3-4.4); CREATININE 0.3 mg/dL (0.5-0.9); CRP QUANT 0.8 mg/dL (< 0.5); HEMOLYSIS 7; LDL CHOLESTEROL (CALC.) 41 mg/dL (60-99); LIPASE 13 U/L (< 60); MAGNESIUM 1.6 mg/dL (1.7-2.5); PHOSPHORUS 2.6 mg/dL (2.5-4.8); POTASSIUM 3.6 mEQ/L (3.4-4.9); SODIUM 132 mEQ/L (135-145); TOTAL PROTEIN 6.8 g/dL (6.6-8.7); URIC ACID 2.4 mg/dL (3.0-7.5)
[2017-06-08 06:26] LABS: THYROID STIMULATING HORMONE 0.212 uIU/mL (0.300-4.500)
[2017-06-08] MEDS: Solu-MEDROL 125mg Inj IVP SCH ×3 (06:34→21:29)
[2017-06-08 08:12] LABS: OSMOLALITY SERUM 281 mOsm/kg (297-317)
[2017-06-08 08:30] LABS: HEMOGLOBIN A1C 6.5 % (< 6.0)
[2017-06-08] MEDS: Sinemet 25/100 tab GT SCH ×3 (09:00→18:00)
[2017-06-08] MEDS: Vancomycin oral 125mg/2.5ml ORAL SCH ×4 (09:00→21:00)
[2017-06-08] MEDS: Losartan 50mg tab GT SCH (09:00)
[2017-06-08] MEDS ORDERED: Cefepime 2gm/D5W 110ml IV SCH ×2 (09:00)
--- NOTE | 2017-06-08 09:11 | GI Initial Consult Note ---
Ashley Palma NEstefani 06/08/17 0911: History of Present Illness General Date patient seen: Jun 08, 2017 Time patient seen: 09:06 Reason for Hospitalization: Upper Respiratory Illness Referring physician: Dr. echeverria Reason for Consultation: GT DISLODGEMENT Present Illness HPI Is an 86-year-old female with multiple medical problems. This include CVA/TIA. She is bed bound and in a long term. At baseline she is confused. She presents with chief complaint of congestion and respiratory distress. Onset for one day. Increasing coughing. Increasing hypoxia with a low of 90% on room air. No fever or chills. No nausea no vomiting. GI Consult. HPI as noted above. GI consulted for GT dislodgement. Pt seen on floor, lethargic on mild distress currently on Bipap. GT site assessed; stoma is closed with not draining at the moment. Presents today with leukocytosis, anemia, and self GT extubation. ROS limited. Home Meds Reported Medications Morphine Sulfate* (MORPHINE SULFATE*) 10 Mg/5 Ml Solution, 4 MG ORAL Q1HR Y for Severe Pain (Pain Scale 7-10), ML 0 Refills 06/11/17 Prochlorperazine (COMPAZINE*) 10 Mg Tablet, 10 MG ORAL Q6H Y for Nausea & Vomiting, TAB 06/11/17 Ipratropium/Albuterol Sulfate (DuoNeb 0.5-3(2.5)mg/3ml) 3 Ml Ampul.neb, 3 ML HHN Q6HR Y for Shortness of Breath, EA 06/11/17 Haloperidol Lactate (HALDOL) 5 Mg/1 Ml Ampul, 1 MG IM Q30MIN Y for Agitation, AMP 06/11/17 Dextran 70/Hypromellose (ARTIFICIAL TEARS EYE DROPS*) 15 Ml Drops, 1 DROP BOTH EYES QID Y for Dry Eyes, #15 ML 0 Refills 06/11/17 Acetaminophen* (ACETAMINOPHEN 325MG TABLET*) 325 Mg Tablet, 650 MG ORAL Q4H Y for Fever/Headache/Mild Pain, TAB 06/11/17 Magnesium Oxide (MAGNESIUM) 500 Mg Capsule, 800 MG GT, CAP 06/06/17 Polyethylene Glycol 3350* (MIRALAX*) 17 Gm Powd.pack, 17 GM GT DAILY, PACKET 06/06/17 Multivitamins* (MULTIVITAMINS*) 1 Each Tablet, 1 TAB GT DAILY, TAB 0 Refills 06/06/17 Losartan Potassium* (LOSARTAN POTASSIUM*) 50 Mg Tablet, 50 MG GT DAILY, TAB 06/06/17 Carbidopa/Levodopa 25-100 Mg* (SINEMET 25-100 MG TABLET*) 1 Each Tablet, 1 TAB GT THREE TIMES A DAY, TAB 06/06/17 Med list reviewed/reconciled: Yes Allergies: Coded Allergies: CODEINE (Verified Allergy, Unknown, 04/13/17) LORAZEPAM (Verified Allergy, Unknown, 04/11/17) reaction unknown MEPERIDINE (Unverified Allergy, Unknown, 09/03/14) PENICILLINS (Verified Allergy, Unknown, 03/06/13) SULFA (SULFONAMIDE ANTIBIOTICS) (Verified Allergy, Unknown, 03/06/13) Patient History History Provided By: Medical Record PMH Narrative Past Medical History: see triage record, old chart reviewed, HTN, AFib, CVA/TIA Past Surgical History: other Pertinent Family History: none Social History: Denies: smoking Now: No Immunizations: other Reviewed Nursing Documentation: PMH: Agreed, PSxH: Agreed Nursing Documentation-PMH Past Medical History: No History, Except For Hx Hypertension: Yes Hx Pacemaker: No Hx Asthma: No Hx COPD: Yes - Respiratory failure Hx Diabetes: No Hx Cancer: No Hx Gastrointestinal Problems: Yes - dysphagia, G-tube, GERD Hx Dialysis: No History Of Psychiatric Problem: Yes - Alzheimers Hx Neurological Problems: Yes - Parkinsons Hx Cerebrovascular Accident: Yes Hx Dementia: Yes Hx Parkinson's Disease: Yes Hx Seizures: No Hx Spinal Cord Injury: Yes Hx Speech Problem: Yes Hx Dizziness: Yes Hx Headaches: Yes Hx Dysphasia: Yes Hx Weakness: Yes Hx Fatigue: Yes Review of Systems All Other Systems: limited Physical Exam Vital Signs Date Time Temp Pulse Resp B/P Pulse Ox O2 Delivery O2 Flow Rate FiO2 06/06/17 21:53 97.2 88 18 147/73 97 Nasal Cannula 3.0 06/06/17 22:18 32 Sp02 EP Interpretation: reviewed Labs Laboratory Tests Test 06/07/17 15:40 06/08/17 02:58 06/08/17 04:00 Urine Osmolality 497 mOsm/kg (429-449) H Urine Random Sodium 47 mmol/L Arterial Blood pH 7.420 (7.350-7.450) Arterial Blood Partial Pressure CO2 54.1 mmHg (35.0-45.0) H Arterial Blood Partial Pressure O2 70.9 mmHg (75.0-100.0) L Arterial Blood HCO3 34.6 mmol/L (22.0-26.0) H Arterial Blood Oxygen Saturation 93.7 % (92.0-98.0) Arterial Blood Base Excess 8.7 Yevgeniy Test Pending White Blood Count 13.8 K/UL (4.8-10.8) #H Red Blood Count 3.33 M/UL (4.20-5.40) L Hemoglobin 11.4 G/DL (12.0-16.0) L Hematocrit 33.4 % (37.0-47.0) L Mean Corpuscular Volume 100 FL (80-99) H Mean Corpuscular Hemoglobin 34.2 PG (27.0-31.0) H Mean Corpuscular Hemoglobin Concent 34.1 G/DL (32.0-36.0) Red Cell Distribution Width 13.2 % (11.6-14.8) Platelet Count 463 K/UL (150-450) H Mean Platelet Volume 6.0 FL (6.5-10.1) L Neutrophils (%) (Auto) % (45.0-75.0) Lymphocytes (%) (Auto) % (20.0-45.0) Monocytes (%) (Auto) % (1.0-10.0) Eosinophils (%) (Auto) % (0.0-3.0) Basophils (%) (Auto) % (0.0-2.0) Sodium Level 132 mEQ/L (135-145) L Potassium Level 3.6 mEQ/L (3.4-4.9) Chloride Level 91 mEQ/L (98-107) L Carbon Dioxide Level 31 mEQ/L (20-30) H Anion Gap 10 (5-15) Blood Urea Nitrogen 11 mg/dL (7-23) Creatinine 0.3 mg/dL (0.5-0.9) L Estimat Glomerular Filtration Rate mL/min (>60) Glucose Level 193 mg/dL (74-106) H Hemoglobin A1c 6.5 % (< 6.0) H Osmolality 281 mOsm/kg (297-317) L Uric Acid 2.4 mg/dL (3.0-7.5) L Calcium Level 9.7 mg/dL (8.6-10.2) Phosphorus Level 2.6 mg/dL (2.5-4.8) Magnesium Level 1.6 mg/dL (1.7-2.5) L Total Bilirubin 0.4 mg/dL (0.0-1.2) Aspartate Amino Transf (AST/SGOT) 17 U/L (5-40) Alanine Aminotransferase (ALT/SGPT) 16 U/L (3-33) Alkaline Phosphatase 78 U/L (35-104) C-Reactive Protein, Quantitative 0.8 mg/dL (< 0.5) H Pro-B-Type Natriuretic Peptide 629 pg/mL (0-450) H Total Protein 6.8 g/dL (6.6-8.7) Albumin 3.1 g/dL (3.5-5.2) L Globulin 3.7 g/dL Albumin/Globulin Ratio 0.8 (1.0-2.7) L Triglycerides Level 35 mg/dL (< 150) Cholesterol Level 125 mg/dL (< 200) LDL Cholesterol 41 mg/dL (60-99) L HDL Cholesterol 77 mg/dL (> 60) H Cholesterol/HDL Ratio 1.6 (3.3-4.4) L Lipase 13 U/L (< 60) Vitamin B12 Level Pending Folate Pending Thyroid Stimulating Hormone (TSH) 0.212 uIU/mL (0.300-4.500) General Appearance: mild distress Head: normocephalic EENT: PERRL/EOMI Neck: supple Respiratory: other - BIPAP Cardiovascular: normal rate Gastrointestinal: gt - site closed Rectal: deferred Skin: normal inspection, normal color, no rash Lymphatic: normal inspection, no adenopathy Current Medications Current Medications Medications (Trade) Dose Ordered Sig/Mikaela Route PRN Reason Start Time Stop Time Status Last Admin Dose Admin Acetaminophen (Tylenol) 650 mg Q4H PRN ORAL Mild Pain (Pain Scale 1-3) 06/07/17 11:30 07/07/17 11:29 Acetaminophen (Tylenol) 650 mg Q4H PRN ORAL T>100.5 06/07/17 11:30 07/07/17 11:29 Albuterol/ Ipratropium (DuoNeb 0.5-3(2.5)mg/3ml) 3 ml Q6HRT HHN 06/07/17 13:00 06/12/17 12:59 06/08/17 06:43 Carbidopa/Levodopa (Sinemet 25/100) 1 ea THREE TIMES A DAY GT 06/07/17 09:00 07/07/17 08:59 06/07/17 12:20 Cefepime HCl/ Dextrose (Maxipime/D5W) 110 ml @ 220 mls/hr DAILY@0900 IV 06/08/17 09:00 06/15/17 08:59 Dextrose/Sodium Chloride (D5ns) 1,000 ml @ 50 mls/hr Q20H IV 06/07/17 19:30 07/07/17 19:29 06/07/17 19:34 Heparin Sodium (Porcine) 5000 units 5,000 units EVERY 12 HOURS SUBQ 06/07/17 21:00 07/07/17 20:59 Losartan Potassium (Cozaar) 50 mg DAILY GT 06/07/17 09:00 07/07/17 08:59 06/07/17 08:51 Methylprednisolone Sodium Succinate (Solu-MEDROL) 60 mg EVERY 8 HOURS IVP 06/07/17 22:00 07/07/17 21:59 06/08/17 06:34 Morphine Sulfate (Morphine Sulfate) 2 mg Q6H PRN IVP PAIN 4-10 06/07/17 11:30 06/14/17 11:29 06/08/17 01:21 Ondansetron HCl (Zofran) 4 mg Q6H PRN IVP Nausea & Vomiting 06/07/17 11:30 07/07/17 11:29 Vancomycin HCl 125 mg 125 mg FOUR TIMES A DAY ORAL 06/07/17 15:00 06/14/17 14:59 06/07/17 15:33 Vancomycin HCl 1 ea 1 ea DAILY PRN MISC Per rx protocol 06/07/17 04:00 07/07/17 03:59 Vancomycin HCl/ Dextrose (Vancomycin/D5W) 275 ml @ 183.708 mls/hr Q24H IVPB 06/07/17 23:00 06/12/17 22:59 06/07/17 23:38 GI: Plan Problems: (1) Feeding by G-tube (2) Alzheimer's dementia (3) Severe malnutrition (4) Altered mental status (5) Malfunction of gastrostomy tube (6) Dysphagia (7) Anemia (8) Encounter for PEG (percutaneous endoscopic gastrostomy) Plan GT site closed. Pt will required another EGD/PEG, but unstable at this time. consider NGT placement when more stable pulmonary care monitor H&H, prn transfusion ppi fu labs Discussed with Dr. Blackburn. Thank you for referring this patient, we will follow. ROLAN BLACKBURN 06/14/17 1053: History of Present Illness General Reason for Hospitalization: Upper Respiratory Illness Present Illness Home Meds Reported Medications Morphine Sulfate* (MORPHINE SULFATE*) 10 Mg/5 Ml Solution, 4 MG ORAL Q1HR Y for Severe Pain (Pain Scale 7-10), ML 0 Refills 06/11/17 Prochlorperazine (COMPAZINE*) 10 Mg Tablet, 10 MG ORAL Q6H Y for Nausea & Vomiting, TAB 06/11/17 Ipratropium/Albuterol Sulfate (DuoNeb 0.5-3(2.5)mg/3ml) 3 Ml Ampul.neb, 3 ML HHN Q6HR Y for Shortness of Breath, EA 06/11/17 Haloperidol Lactate (HALDOL) 5 Mg/1 Ml Ampul, 1 MG IM Q30MIN Y for Agitation, AMP 06/11/17 Dextran 70/Hypromellose (ARTIFICIAL TEARS EYE DROPS*) 15 Ml Drops, 1 DROP BOTH EYES QID Y for Dry Eyes, #15 ML 0 Refills 06/11/17 Acetaminophen* (ACETAMINOPHEN 325MG TABLET*) 325 Mg Tablet, 650 MG ORAL Q4H Y for Fever/Headache/Mild Pain, TAB 06/11/17 Magnesium Oxide (MAGNESIUM) 500 Mg Capsule, 800 MG GT, CAP 06/06/17 Polyethylene Glycol 3350* (MIRALAX*) 17 Gm Powd.pack, 17 GM GT DAILY, PACKET 06/06/17 Multivitamins* (MULTIVITAMINS*) 1 Each Tablet, 1 TAB GT DAILY, TAB 0 Refills 06/06/17 Losartan Potassium* (LOSARTAN POTASSIUM*) 50 Mg Tablet, 50 MG GT DAILY, TAB 06/06/17 Carbidopa/Levodopa 25-100 Mg* (SINEMET 25-100 MG TABLET*) 1 Each Tablet, 1 TAB GT THREE TIMES A DAY, TAB 06/06/17 Allergies: Coded Allergies: CODEINE (Verified Allergy, Unknown, 04/13/17) LORAZEPAM (Verified Allergy, Unknown, 04/11/17) reaction unknown MEPERIDINE (Unverified Allergy, Unknown, 09/03/14) PENICILLINS (Verified Allergy, Unknown, 03/06/13) SULFA (SULFONAMIDE ANTIBIOTICS) (Verified Allergy, Unknown, 03/06/13) GI: Plan Plan The patient was seen and examined at bedside and all new and available data was reviewed in the patients chart. I agree with the above findings, impression and plan. (Patient seen earlier today. Signature stamp does not reflect patient encounter time.). -Rolan [facility] Cesario N.PLucas Jun 08, 2017 09:11 ROLAN BLACKBURN Jun 14, 2017 10:53
--- NOTE | 2017-06-08 09:14 | Diagnostic Imaging Report ---
Indications: Shortness of breath and cough Technique: Portable AP chest Findings: Comparison: None Bilateral hilar fullness and perihilar bronchovascular prominence have developed. Cardiac silhouette remains upper limits of normal in size. Peripheral pulmonary vasculature remains within normal limits. No pleural abnormality identified. Aortic arch calcification, degenerative spondylosis and scoliosis again noted. IMPRESSION: Development of bilateral perihilar infiltrates may be congestive or inflammatory No other evidence of acute disease, unchanged Stable chronic changes as described
[2017-06-08] MEDS: Heparin 5000 units/ml inj SUBQ SCH ×2 (09:29→21:27)
--- NOTE | 2017-06-08 11:04 | General Progress Note ---
Assessment/Plan Status: stable - from renal stand, unchanged - from pulmonary stand Status Narrative Na higher Assessment/Plan status: 1) Aspiration pneumonia (2) UTI (urinary tract infection) (3) COPD (chronic obstructive pulmonary disease) (4) Feeding by G-tube (5) Severe malnutrition (6) Parkinsons disease (7) HypoThyroidism (8) C dif (9) Low na , h/o SIADH Plan; Saline 3% and Lasix Vanco GT Stool C dif Urine studies Monitor lytes on steroids Pulm support Per consultants Subjective ROS Limited/Unobtainable: No Constitutional: Reports: malaise, weakness Respiratory: Reports: shortness of breath Allergies: Coded Allergies: CODEINE (Verified Allergy, Unknown, 04/13/17) LORAZEPAM (Verified Allergy, Unknown, 04/11/17) reaction unknown MEPERIDINE (Unverified Allergy, Unknown, 09/03/14) PENICILLINS (Verified Allergy, Unknown, 03/06/13) SULFA (SULFONAMIDE ANTIBIOTICS) (Verified Allergy, Unknown, 03/06/13) Objective Last 24 Hour Vital Signs Date Time Temp Pulse Resp B/P Pulse Ox O2 Delivery O2 Flow Rate FiO2 06/08/17 09:28 102 20 100 Full Face 50 06/08/17 09:00 150/79 06/08/17 08:10 97.5 82 19 150/79 98 Bi-pap 93 82 06/08/17 08:00 80 06/08/17 06:30 76 18 100 Bi-pap 30 06/08/17 06:30 82 18 100 Bi-pap 30 06/08/17 06:30 76 18 100 Full Face 30 06/08/17 06:30 30 06/08/17 04:49 90 22 99 Full Face 35 06/08/17 04:00 87 06/08/17 04:00 98.0 85 24 122/60 100 Bi-pap 35 06/08/17 02:41 86 22 100 Full Face 35 06/08/17 01:56 97.9 06/08/17 01:40 73 19 100 Facial 35 06/08/17 01:39 85 21 100 Bi-pap 35 06/08/17 01:38 35 06/08/17 01:37 91 22 97 Bi-pap 35 06/08/17 00:00 76 06/08/17 00:00 98.4 64 23 137/69 94 Bi-pap 35 06/07/17 22:16 73 19 97 Facial 35 06/07/17 20:01 97.9 90 21 149/78 98 Room Air 90 06/07/17 20:00 87 06/07/17 19:44 90 18 95 Nasal Cannula 3.0 32 06/07/17 19:44 99 28 Nasal Cannula 3.0 32 06/07/17 19:44 99 Nasal Cannula 3.0 32 06/07/17 19:44 Nasal Cannula 3.0 32 06/07/17 19:44 88 28 96 Nasal Cannula 3.0 32 06/07/17 16:00 96.3 62 20 154/72 100 Nasal Cannula 3.0 06/07/17 16:00 85 06/07/17 12:33 88 19 98 Nasal Cannula 3.0 32 06/07/17 12:25 90 18 95 Nasal Cannula 3.0 32 06/07/17 12:00 97.7 79 26 118/79 96 Nasal Cannula 3.0 06/07/17 12:00 78 Intake and Output 06/07/17 06/08/17 19:00 07:00 Intake Total 725 ml 675 ml Output Total 350 ml Balance 375 ml 675 ml Intake Free Water 120 ml IV Total 110 ml 675 ml Tube Feeding 495 ml Output Urine Total 350 ml # Bowel Movements 1 Laboratory Tests 06/07/17 15:40: Urine Osmolality 497H, Urine Random Sodium 47 06/08/17 02:58: Arterial Blood pH 7.420, Arterial Blood Partial Pressure CO2 54.1H, Arterial Blood Partial Pressure O2 70.9L, Arterial Blood HCO3 34.6H, Arterial Blood Oxygen Saturation 93.7, Arterial Blood Base Excess 8.7, Yevgeniy Test [Pending] 06/08/17 04:00: White Blood Count 13.8#H, Red Blood Count 3.33L, Hemoglobin 11.4L, Hematocrit 33.4L, Mean Corpuscular Volume 100H, Mean Corpuscular Hemoglobin 34.2H, Mean Corpuscular Hemoglobin Concent 34.1, Red Cell Distribution Width 13.2, Platelet Count 463H, Mean Platelet Volume 6.0L, Neutrophils (%) (Auto) , Lymphocytes (%) (Auto) , Monocytes (%) (Auto) , Eosinophils (%) (Auto) , Basophils (%) (Auto) , Sodium Level 132L, Potassium Level 3.6, Chloride Level 91L, Carbon Dioxide Level 31H, Anion Gap 10, Blood Urea Nitrogen 11, Creatinine 0.3L, Estimat Glomerular Filtration Rate , Glucose Level 193H, Hemoglobin A1c 6.5H, Osmolality 281L, Uric Acid 2.4L, Calcium Level 9.7, Phosphorus Level 2.6, Magnesium Level 1.6L, Total Bilirubin 0.4, Aspartate Amino Transf (AST/SGOT) 17 , Alanine Aminotransferase (ALT/SGPT) 16, Alkaline Phosphatase 78, C-Reactive Protein, Quantitative 0.8H, Pro-B-Type Natriuretic Peptide 629H, Total Protein 6.8, Albumin 3.1L, Globulin 3.7, Albumin/Globulin Ratio 0.8L, Triglycerides Level 35, Cholesterol Level 125, LDL Cholesterol 41L, HDL Cholesterol 77H, Cholesterol/HDL Ratio 1.6L, Lipase 13, Vitamin B12 Level > 2000H, Folate [ Pending], Thyroid Stimulating Hormone (TSH) 0.212L Height (Feet): 5 Height (Inches): 6.00 Weight (Pounds): 115 General Appearance: other - on BIPAP Cardiovascular: tachycardia Respiratory/Chest: decreased breath sounds, rhonchi - bilaterally Abdomen: soft, other - GT JANUARY KEY Jun 08, 2017 11:04
--- NOTE | 2017-06-08 11:11 | Pulmonology Progress Note ---
Assessment/Plan Problems: (1) Aspiration pneumonia (2) UTI (urinary tract infection) (3) COPD (chronic obstructive pulmonary disease) (4) Hypothyroidism (5) Hyponatremia (6) Parkinsons disease (7) Severe malnutrition (8) Feeding by G-tube Respiratory: monitor respiratory rate, adjust FIO2 Cardiac: continue to monitor HR/BP Renal: F/U I&O, keep IV fluid Infectious Disease: check cultures Gastrointestinal: hold feedings Endocrine: monitor blood sugar, check HgA1C Hematologic: monitor H/H, transfuse if hgb<8.5 Neurologic: PRN Ativan, keep patient comfortable Affect: PRN ativan Prophylaxis: Protonix Notes Reviewed: psychiatric therapist, cardio, renal Discussed with: nurses, consultants Subjective Interval Events: on BIPAP Allergies: Coded Allergies: CODEINE (Verified Allergy, Unknown, 04/13/17) LORAZEPAM (Verified Allergy, Unknown, 04/11/17) reaction unknown MEPERIDINE (Unverified Allergy, Unknown, 09/03/14) PENICILLINS (Verified Allergy, Unknown, 03/06/13) SULFA (SULFONAMIDE ANTIBIOTICS) (Verified Allergy, Unknown, 03/06/13) Objective Last 24 Hour Vital Signs Date Time Temp Pulse Resp B/P Pulse Ox O2 Delivery O2 Flow Rate FiO2 06/08/17 09:28 102 20 100 Full Face 50 06/08/17 09:00 150/79 06/08/17 08:10 97.5 82 19 150/79 98 Bi-pap 93 82 06/08/17 08:00 80 06/08/17 06:30 76 18 100 Bi-pap 30 06/08/17 06:30 82 18 100 Bi-pap 30 06/08/17 06:30 76 18 100 Full Face 30 06/08/17 06:30 30 06/08/17 04:49 90 22 99 Full Face 35 06/08/17 04:00 87 06/08/17 04:00 98.0 85 24 122/60 100 Bi-pap 35 06/08/17 02:41 86 22 100 Full Face 35 06/08/17 01:56 97.9 06/08/17 01:40 73 19 100 Facial 35 06/08/17 01:39 85 21 100 Bi-pap 35 06/08/17 01:38 35 06/08/17 01:37 91 22 97 Bi-pap 35 06/08/17 00:00 76 06/08/17 00:00 98.4 64 23 137/69 94 Bi-pap 35 06/07/17 22:16 73 19 97 Facial 35 06/07/17 20:01 97.9 90 21 149/78 98 Room Air 90 06/07/17 20:00 87 06/07/17 19:44 90 18 95 Nasal Cannula 3.0 32 06/07/17 19:44 99 28 Nasal Cannula 3.0 32 06/07/17 19:44 99 Nasal Cannula 3.0 32 06/07/17 19:44 Nasal Cannula 3.0 32 06/07/17 19:44 88 28 96 Nasal Cannula 3.0 32 06/07/17 16:00 96.3 62 20 154/72 100 Nasal Cannula 3.0 06/07/17 16:00 85 06/07/17 12:33 88 19 98 Nasal Cannula 3.0 32 06/07/17 12:25 90 18 95 Nasal Cannula 3.0 32 06/07/17 12:00 97.7 79 26 118/79 96 Nasal Cannula 3.0 06/07/17 12:00 78 Intake and Output 06/07/17 06/08/17 19:00 07:00 Intake Total 725 ml 675 ml Output Total 350 ml Balance 375 ml 675 ml Intake Free Water 120 ml IV Total 110 ml 675 ml Tube Feeding 495 ml Output Urine Total 350 ml # Bowel Movements 1 General Appearance: cachetic HEENT: normocephalic, atraumatic Respiratory/Chest: chest wall non-tender, lungs clear Cardiovascular: normal rate Abdomen: normal bowel sounds, soft, non tender Extremities: no cyanosis, no clubbing 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 Lymphatic: no neck adenopathy, no groin adenopathy Microbiology Date/Time Source Procedure Growth Status 06/06/17 22:15 Blood Blood Culture - Preliminary NO GROWTH AFTER 24 HOURS Resulted 06/06/17 22:10 Blood Blood Culture - Preliminary NO GROWTH AFTER 24 HOURS Resulted 06/06/17 22:25 Urine,Clean Catch Urine Culture - Preliminary NO GROWTH AFTER 24 HOURS Resulted Laboratory Tests 06/07/17 15:40: Urine Osmolality 497H, Urine Random Sodium 47 06/08/17 02:58: Arterial Blood pH 7.420, Arterial Blood Partial Pressure CO2 54.1H, Arterial Blood Partial Pressure O2 70.9L, Arterial Blood HCO3 34.6H, Arterial Blood Oxygen Saturation 93.7, Arterial Blood Base Excess 8.7, Yevgeniy Test [Pending] 06/08/17 04:00: White Blood Count 13.8#H, Red Blood Count 3.33L, Hemoglobin 11.4L, Hematocrit 33.4L, Mean Corpuscular Volume 100H, Mean Corpuscular Hemoglobin 34.2H, Mean Corpuscular Hemoglobin Concent 34.1, Red Cell Distribution Width 13.2, Platelet Count 463H, Mean Platelet Volume 6.0L, Neutrophils (%) (Auto) , Lymphocytes (%) (Auto) , Monocytes (%) (Auto) , Eosinophils (%) (Auto) , Basophils (%) (Auto) , Sodium Level 132L, Potassium Level 3.6, Chloride Level 91L, Carbon Dioxide Level 31H, Anion Gap 10, Blood Urea Nitrogen 11, Creatinine 0.3L, Estimat Glomerular Filtration Rate , Glucose Level 193H, Hemoglobin A1c 6.5H, Osmolality 281L, Uric Acid 2.4L, Calcium Level 9.7, Phosphorus Level 2.6, Magnesium Level 1.6L, Total Bilirubin 0.4, Aspartate Amino Transf (AST/SGOT) 17 , Alanine Aminotransferase (ALT/SGPT) 16, Alkaline Phosphatase 78, C-Reactive Protein, Quantitative 0.8H, Pro-B-Type Natriuretic Peptide 629H, Total Protein 6.8, Albumin 3.1L, Globulin 3.7, Albumin/Globulin Ratio 0.8L, Triglycerides Level 35, Cholesterol Level 125, LDL Cholesterol 41L, HDL Cholesterol 77H, Cholesterol/HDL Ratio 1.6L, Lipase 13, Vitamin B12 Level > 2000H, Folate [ Pending], Thyroid Stimulating Hormone (TSH) 0.212L Current Medications Medications (Trade) Dose Ordered Sig/Mikaela Route PRN Reason Start Time Stop Time Status Last Admin Dose Admin Acetaminophen (Tylenol) 650 mg Q4H PRN ORAL Mild Pain (Pain Scale 1-3) 06/07/17 11:30 07/07/17 11:29 Acetaminophen (Tylenol) 650 mg Q4H PRN ORAL T>100.5 06/07/17 11:30 07/07/17 11:29 Albuterol/ Ipratropium (DuoNeb 0.5-3(2.5)mg/3ml) 3 ml Q6HRT HHN 06/07/17 13:00 06/12/17 12:59 06/08/17 06:43 Carbidopa/Levodopa (Sinemet 25/100) 1 ea THREE TIMES A DAY GT 06/07/17 09:00 07/07/17 08:59 06/07/17 12:20 Cefepime HCl/ Dextrose (Maxipime/D5W) 110 ml @ 220 mls/hr DAILY@0900 IV 06/08/17 09:00 06/15/17 08:59 06/08/17 09:25 Furosemide (Lasix) 20 mg ONCE ONCE IV 06/08/17 11:00 06/08/17 11:01 UNV Heparin Sodium (Porcine) 5000 units 5,000 units EVERY 12 HOURS SUBQ 06/07/17 21:00 07/07/17 20:59 06/08/17 09:29 Losartan Potassium 50 mg 50 mg BID GT 06/08/17 18:00 07/08/17 17:59 UNV Methylprednisolone Sodium Succinate (Solu-MEDROL) 60 mg EVERY 8 HOURS IVP 06/07/17 22:00 07/07/17 21:59 06/08/17 06:34 Morphine Sulfate (Morphine Sulfate) 2 mg Q6H PRN IVP PAIN 4-10 06/07/17 11:30 06/14/17 11:29 06/08/17 09:42 Ondansetron HCl (Zofran) 4 mg Q6H PRN IVP Nausea & Vomiting 06/07/17 11:30 07/07/17 11:29 Sodium Chloride (Hypertonic Saline) 250 ml @ 30 mls/hr ONCE ONCE IVPB 06/08/17 11:00 06/08/17 19:19 UNV Vancomycin HCl (Vancomycin) 125 mg FOUR TIMES A DAY ORAL 06/07/17 15:00 06/14/17 14:59 06/07/17 15:33 Vancomycin HCl 1 ea 1 ea DAILY PRN MISC Per rx protocol 06/07/17 04:00 07/07/17 03:59 Vancomycin HCl/ Dextrose (Vancomycin/D5W) 275 ml @ 183.708 mls/hr Q24H IVPB 06/07/17 23:00 06/12/17 22:59 06/07/17 23:38 LEELEE ADLER Jun 08, 2017 11:11
[2017-06-08] MEDS ORDERED: NaCl 3% 500ml 250 ML IV ONE (13:00)
[2017-06-08] MEDS ORDERED: NS 275ml ONE (15:48)
[2017-06-08] MEDS ORDERED: D5NS 1000ml IV ONE (15:51)
--- NOTE | 2017-06-08 17:19 | Cardiac Electrophysiology PN ---
Assessment/Plan Assessment/Plan 1. History of hypertension.On Losartan 50 mg bid 2. Dysphagia status post G-tube placement.She pulled out PEG. Awaiting consent for new PEG. 3. Sepsis, on cefepime and vancomycin, and albuterol. 4. Dementia. 5. Abnormal electrocardiogram with anterior ischemia on the EKG. However, the patient is currently nonverbal and does not have any chest pain. Echocardiogram EF 65% DW RN Subjective Subjective Nonverbal in SR. Was on BIPAP. RN at bedside. She pulled out her PEG and palma couldn't be placed instead. Objective Last 24 Hour Vital Signs Date Time Temp Pulse Resp B/P Pulse Ox O2 Delivery O2 Flow Rate FiO2 06/08/17 16:25 97.0 90 22 149/91 100 Non-Rebreather 15.0 90 06/08/17 16:00 80 06/08/17 12:53 79 20 100 Non-Rebreather 15.0 100 06/08/17 12:44 100 06/08/17 12:44 87 18 100 Non-Rebreather 15.0 100 06/08/17 12:00 98 06/08/17 11:35 97.3 89 22 145/85 98 Non-Rebreather 89 06/08/17 11:16 Non-Rebreather 15.0 100 06/08/17 11:16 99 Non-Rebreather 15.0 100 06/08/17 10:12 97.5 06/08/17 09:28 102 20 100 Full Face 50 06/08/17 09:00 150/79 06/08/17 08:10 97.5 82 19 150/79 98 Bi-pap 93 82 06/08/17 08:00 80 06/08/17 06:30 76 18 100 Bi-pap 30 06/08/17 06:30 82 18 100 Bi-pap 30 06/08/17 06:30 76 18 100 Full Face 30 06/08/17 06:30 30 06/08/17 04:49 90 22 99 Full Face 35 06/08/17 04:00 87 06/08/17 04:00 98.0 85 24 122/60 100 Bi-pap 35 06/08/17 02:41 86 22 100 Full Face 35 06/08/17 01:40 73 19 100 Facial 35 06/08/17 01:39 85 21 100 Bi-pap 35 06/08/17 01:38 35 06/08/17 01:37 91 22 97 Bi-pap 35 06/08/17 00:00 76 06/08/17 00:00 98.4 64 23 137/69 94 Bi-pap 35 06/07/17 22:16 73 19 97 Facial 35 06/07/17 20:01 97.9 90 21 149/78 98 Room Air 90 06/07/17 20:00 87 06/07/17 19:44 90 18 95 Nasal Cannula 3.0 32 06/07/17 19:44 99 28 Nasal Cannula 3.0 32 06/07/17 19:44 99 Nasal Cannula 3.0 32 06/07/17 19:44 Nasal Cannula 3.0 32 06/07/17 19:44 88 28 96 Nasal Cannula 3.0 32 Intake and Output 06/07/17 06/08/17 19:00 07:00 Intake Total 725 ml 725 ml Output Total 350 ml Balance 375 ml 725 ml Intake Free Water 120 ml IV Total 110 ml 725 ml Tube Feeding 495 ml Output Urine Total 350 ml # Bowel Movements 1 Laboratory Tests Test 06/08/17 02:58 06/08/17 04:00 Arterial Blood pH 7.420 (7.350-7.450) Arterial Blood Partial Pressure CO2 54.1 mmHg (35.0-45.0) H Arterial Blood Partial Pressure O2 70.9 mmHg (75.0-100.0) L Arterial Blood HCO3 34.6 mmol/L (22.0-26.0) H Arterial Blood Oxygen Saturation 93.7 % (92.0-98.0) Arterial Blood Base Excess 8.7 Yevgeniy Test Pending White Blood Count 13.8 K/UL (4.8-10.8) #H Red Blood Count 3.33 M/UL (4.20-5.40) L Hemoglobin 11.4 G/DL (12.0-16.0) L Hematocrit 33.4 % (37.0-47.0) L Mean Corpuscular Volume 100 FL (80-99) H Mean Corpuscular Hemoglobin 34.2 PG (27.0-31.0) H Mean Corpuscular Hemoglobin Concent 34.1 G/DL (32.0-36.0) Red Cell Distribution Width 13.2 % (11.6-14.8) Platelet Count 463 K/UL (150-450) H Mean Platelet Volume 6.0 FL (6.5-10.1) L Neutrophils (%) (Auto) % (45.0-75.0) Lymphocytes (%) (Auto) % (20.0-45.0) Monocytes (%) (Auto) % (1.0-10.0) Eosinophils (%) (Auto) % (0.0-3.0) Basophils (%) (Auto) % (0.0-2.0) Sodium Level 132 mEQ/L (135-145) L Potassium Level 3.6 mEQ/L (3.4-4.9) Chloride Level 91 mEQ/L (98-107) L Carbon Dioxide Level 31 mEQ/L (20-30) H Anion Gap 10 (5-15) Blood Urea Nitrogen 11 mg/dL (7-23) Creatinine 0.3 mg/dL (0.5-0.9) L Estimat Glomerular Filtration Rate mL/min (>60) Glucose Level 193 mg/dL (74-106) H Hemoglobin A1c 6.5 % (< 6.0) H Osmolality 281 mOsm/kg (297-317) L Uric Acid 2.4 mg/dL (3.0-7.5) L Calcium Level 9.7 mg/dL (8.6-10.2) Phosphorus Level 2.6 mg/dL (2.5-4.8) Magnesium Level 1.6 mg/dL (1.7-2.5) L Total Bilirubin 0.4 mg/dL (0.0-1.2) Aspartate Amino Transf (AST/SGOT) 17 U/L (5-40) Alanine Aminotransferase (ALT/SGPT) 16 U/L (3-33) Alkaline Phosphatase 78 U/L (35-104) C-Reactive Protein, Quantitative 0.8 mg/dL (< 0.5) H Pro-B-Type Natriuretic Peptide 629 pg/mL (0-450) H Total Protein 6.8 g/dL (6.6-8.7) Albumin 3.1 g/dL (3.5-5.2) L Globulin 3.7 g/dL Albumin/Globulin Ratio 0.8 (1.0-2.7) L Triglycerides Level 35 mg/dL (< 150) Cholesterol Level 125 mg/dL (< 200) LDL Cholesterol 41 mg/dL (60-99) L HDL Cholesterol 77 mg/dL (> 60) H Cholesterol/HDL Ratio 1.6 (3.3-4.4) L Lipase 13 U/L (< 60) Vitamin B12 Level > 2000 pg/mL (211-946) H Folate Pending Thyroid Stimulating Hormone (TSH) 0.212 uIU/mL (0.300-4.500) Microbiology Date/Time Source Procedure Growth Status 06/06/17 22:15 Blood Blood Culture - Preliminary NO GROWTH AFTER 24 HOURS Resulted 06/06/17 22:10 Blood Blood Culture - Preliminary NO GROWTH AFTER 24 HOURS Resulted 06/07/17 12:20 Sputum Gram Stain - Final Resulted 06/07/17 12:20 Sputum Sputum Culture Pending Resulted 06/06/17 22:25 Urine,Clean Catch Urine Culture - Preliminary NO GROWTH AFTER 24 HOURS Resulted Objective HEAD AND NECK: Showed no JVD. LUNGS: Clear. CARDIOVASCULAR: Shows regular S1 and S2 with no gallop or murmur. ABDOMEN: G-tube site covered. No PEG EXTREMITIES: 1+ pitting edema. TAY MONTELONGO Jun 08, 2017 17:19
--- NOTE | 2017-06-08 17:29 | Consultation ---
Consult Note Consult Note ID CONSULT: Vy# [id number] Assessment/Plan ASSESSMENT: 86 y/o female with: // Possible HCAP vs CHF - SCx pending - CXR 06/07: bilateral perihilar infiltrates may be congestive or inflammatory // Probable UTI - UCx NGTD // Acute leukocytosis ( on steroids ) // Low grade fever x1 // Acute hypoxemic respiratory failure, on NRB mask // Thrombocytosis // Hyponatremia / electrolyte imbalance // Chronic diastolic CHF, possibly exacerbated - TTE: EF 60-65%, grade I diastolic dysfunction, mild MR, TR // Dementia // Bedbound // Dysphagia SP PEG // [facility] resident // PCN, sulfa allergies - tolerating cefepime // Full Code PLAN: - continue empiric IV vancomycin, cefepime d# 2 - taper steroids per pulm - f/u cultures - monitor CBC, temperatures - monitor BMP - monitor CXR - respiratory support Thanks! Will follow ROSSANA BENJAMIN Jun 08, 2017 17:29
--- NOTE | 2017-06-08 18:04 | Internal Med Progress Note ---
Subjective Date of Service: Jun 08, 2017 Physician Name CharlesRae Attending Physician Gino Cordova MD Current Medications Medications (Trade) Dose Ordered Sig/Mikaela Route PRN Reason Start Time Stop Time Status Last Admin Dose Admin Acetaminophen (Tylenol) 650 mg Q4H PRN ORAL Mild Pain (Pain Scale 1-3) 06/07/17 11:30 07/07/17 11:29 Acetaminophen (Tylenol) 650 mg Q4H PRN ORAL T>100.5 06/07/17 11:30 07/07/17 11:29 Albuterol/ Ipratropium (DuoNeb 0.5-3(2.5)mg/3ml) 3 ml Q6HRT HHN 06/07/17 13:00 06/12/17 12:59 06/08/17 12:44 Carbidopa/Levodopa (Sinemet 25/100) 1 ea THREE TIMES A DAY GT 06/07/17 09:00 07/07/17 08:59 06/07/17 12:20 Cefepime HCl/ Dextrose (Maxipime/D5W) 110 ml @ 220 mls/hr DAILY@0900 IV 06/08/17 09:00 06/15/17 08:59 06/08/17 09:25 Heparin Sodium (Porcine) 5000 units 5,000 units EVERY 12 HOURS SUBQ 06/07/17 21:00 07/07/17 20:59 06/08/17 09:29 Losartan Potassium 50 mg 50 mg Q12HR GT 06/08/17 21:00 07/08/17 20:59 Methylprednisolone Sodium Succinate (Solu-MEDROL) 60 mg EVERY 8 HOURS IVP 06/07/17 22:00 07/07/17 21:59 06/08/17 14:26 Morphine Sulfate (Morphine Sulfate) 2 mg Q6H PRN IVP PAIN 4-10 06/07/17 11:30 06/14/17 11:29 06/08/17 09:42 Ondansetron HCl (Zofran) 4 mg Q6H PRN IVP Nausea & Vomiting 06/07/17 11:30 07/07/17 11:29 Sodium Chloride (Hypertonic Saline) 250 ml @ 30 mls/hr ONCE ONCE IV 06/08/17 13:00 06/08/17 21:19 06/08/17 14:27 Vancomycin HCl (Vancomycin) 125 mg FOUR TIMES A DAY ORAL 06/07/17 15:00 06/14/17 14:59 06/07/17 15:33 Vancomycin HCl 1 ea 1 ea DAILY PRN MISC Per rx protocol 06/07/17 04:00 07/07/17 03:59 Vancomycin HCl/ Dextrose (Vancomycin/D5W) 275 ml @ 183.708 mls/hr Q24H IVPB 06/07/17 23:00 06/12/17 22:59 06/07/17 23:38 Allergies: Coded Allergies: CODEINE (Verified Allergy, Unknown, 04/13/17) LORAZEPAM (Verified Allergy, Unknown, 04/11/17) reaction unknown MEPERIDINE (Unverified Allergy, Unknown, 09/03/14) PENICILLINS (Verified Allergy, Unknown, 03/06/13) SULFA (SULFONAMIDE ANTIBIOTICS) (Verified Allergy, Unknown, 03/06/13) ROS Limited/Unobtainable: Yes Subjective 86 YO F admitted with respiratory distress. ZORA. 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 Skin: normal pigmentation, warm/dry Laboratory Tests Test 06/08/17 02:58 06/08/17 04:00 Arterial Blood pH 7.420 (7.350-7.450) Arterial Blood Partial Pressure CO2 54.1 mmHg (35.0-45.0) H Arterial Blood Partial Pressure O2 70.9 mmHg (75.0-100.0) L Arterial Blood HCO3 34.6 mmol/L (22.0-26.0) H Arterial Blood Oxygen Saturation 93.7 % (92.0-98.0) Arterial Blood Base Excess 8.7 Yevgeniy Test Pending White Blood Count 13.8 K/UL (4.8-10.8) #H Red Blood Count 3.33 M/UL (4.20-5.40) L Hemoglobin 11.4 G/DL (12.0-16.0) L Hematocrit 33.4 % (37.0-47.0) L Mean Corpuscular Volume 100 FL (80-99) H Mean Corpuscular Hemoglobin 34.2 PG (27.0-31.0) H Mean Corpuscular Hemoglobin Concent 34.1 G/DL (32.0-36.0) Red Cell Distribution Width 13.2 % (11.6-14.8) Platelet Count 463 K/UL (150-450) H Mean Platelet Volume 6.0 FL (6.5-10.1) L Neutrophils (%) (Auto) % (45.0-75.0) Lymphocytes (%) (Auto) % (20.0-45.0) Monocytes (%) (Auto) % (1.0-10.0) Eosinophils (%) (Auto) % (0.0-3.0) Basophils (%) (Auto) % (0.0-2.0) Sodium Level 132 mEQ/L (135-145) L Potassium Level 3.6 mEQ/L (3.4-4.9) Chloride Level 91 mEQ/L (98-107) L Carbon Dioxide Level 31 mEQ/L (20-30) H Anion Gap 10 (5-15) Blood Urea Nitrogen 11 mg/dL (7-23) Creatinine 0.3 mg/dL (0.5-0.9) L Estimat Glomerular Filtration Rate mL/min (>60) Glucose Level 193 mg/dL (74-106) H Hemoglobin A1c 6.5 % (< 6.0) H Osmolality 281 mOsm/kg (297-317) L Uric Acid 2.4 mg/dL (3.0-7.5) L Calcium Level 9.7 mg/dL (8.6-10.2) Phosphorus Level 2.6 mg/dL (2.5-4.8) Magnesium Level 1.6 mg/dL (1.7-2.5) L Total Bilirubin 0.4 mg/dL (0.0-1.2) Aspartate Amino Transf (AST/SGOT) 17 U/L (5-40) Alanine Aminotransferase (ALT/SGPT) 16 U/L (3-33) Alkaline Phosphatase 78 U/L (35-104) C-Reactive Protein, Quantitative 0.8 mg/dL (< 0.5) H Pro-B-Type Natriuretic Peptide 629 pg/mL (0-450) H Total Protein 6.8 g/dL (6.6-8.7) Albumin 3.1 g/dL (3.5-5.2) L Globulin 3.7 g/dL Albumin/Globulin Ratio 0.8 (1.0-2.7) L Triglycerides Level 35 mg/dL (< 150) Cholesterol Level 125 mg/dL (< 200) LDL Cholesterol 41 mg/dL (60-99) L HDL Cholesterol 77 mg/dL (> 60) H Cholesterol/HDL Ratio 1.6 (3.3-4.4) L Lipase 13 U/L (< 60) Vitamin B12 Level > 2000 pg/mL (211-946) H Folate Pending Thyroid Stimulating Hormone (TSH) 0.212 uIU/mL (0.300-4.500) Microbiology Date/Time Source Procedure Growth Status 06/06/17 22:15 Blood Blood Culture - Preliminary NO GROWTH AFTER 24 HOURS Resulted 06/06/17 22:10 Blood Blood Culture - Preliminary NO GROWTH AFTER 24 HOURS Resulted 06/07/17 12:20 Sputum Gram Stain - Final Resulted 06/07/17 12:20 Sputum Sputum Culture Pending Resulted 06/06/17 22:25 Urine,Clean Catch Urine Culture - Preliminary NO GROWTH AFTER 24 HOURS Resulted Intake and Output 06/07/17 06/08/17 19:00 07:00 Intake Total 725 ml 725 ml Output Total 350 ml Balance 375 ml 725 ml Intake Free Water 120 ml IV Total 110 ml 725 ml Tube Feeding 495 ml Output Urine Total 350 ml # Bowel Movements 1 Assessment/Plan Problem List: (1) Parkinson disease Assessment & Plan: Cont sinimet (2) Cerebral vascular disease (3) Acute respiratory failure Assessment & Plan: Continue BIPAP per pulmonary. (4) COPD (chronic obstructive pulmonary disease) Assessment & Plan: Acute exacerbation. Cont IV solumedrol and albuterol nebs. Cont cefepime and vanco (5) HTN (hypertension) Assessment & Plan: Hypotension (6) Hypothyroidism (7) Alzheimer's dementia (8) Dysphagia Assessment & Plan: S/P PEG (9) Feeding by G-tube Status: progressing RAE CHARLES Jun 08, 2017 18:04
[2017-06-08] MEDS ORDERED: Losartan 50mg tab GT SCH (21:00)
[2017-06-08] MEDS: Vancomycin 750mg/D5W 275ml IVPB SCH ×2 (22:33)
[2017-06-08 23:59] LABS: ABG ALLEN TEST POSITIVE; ABG BASE EXCESS 2.3
[2017-06-09] VITALS (23 sets, daily range): BP systolic 89–164; BP diastolic 31–95
--- NOTE | 2017-06-09 | Consultation ---
DATE OF CONSULTATION: 06/08/2017 INFECTIOUS DISEASE CONSULTATION CONSULTING PHYSICIAN: Bob Pineda M.D. REQUESTING PHYSICIAN: Gino Cordova M.D. REASON FOR CONSULTATION: Pneumonia and urinary tract infection. HISTORY OF PRESENT ILLNESS: This is an 86-year-old demented female, long term resident, admitted on 06/07/2017 with shortness of breath. Chest x-ray shows bilateral perihilar infiltrates that may be congestive or inflammatory. Urinalysis also suggests probable urinary tract infection and urine cultures no growth to date. She developed a leukocytosis this morning after being started on steroids and had a mild low-grade fever of 100, x1. She is currently requiring supplemental oxygenation with non-rebreather mask and has evidence of thrombocytosis, hyponatremia, and electrolyte imbalance. She is allergic to penicillins and cephalosporins where she has been started on empiric vancomycin cefepime and is tolerating. ID now consulted to assist in management. PAST MEDICAL HISTORY: 1. Dementia. 2. Hypertension. 3. Stroke. 4. Bedbound. 5. Dysphagia. 6. Chronic obstructive pulmonary disease. PAST SURGICAL HISTORY: PEG tube placement. ALLERGIES: 1. Penicillin. 2. Sulfa. 3. Meperidine. 4. Codeine. 5. Lorazepam. MEDICATIONS: 1. IV vancomycin. 2. Cefepime. 3. Solu-Medrol. 4. Cozaar. 5. Subcutaneous heparin. 6. Sinemet. FAMILY HISTORY: Unable to obtain. SOCIAL HISTORY: The patient is a resident of long term. No active tobacco, alcohol, or illicit drug abuse. REVIEW OF SYSTEMS: Unable to obtain. PHYSICAL EXAMINATION: VITAL SIGNS: Maximum temperature of 100 degrees, blood pressure 149/91, heart rate in the 90s, respiratory rate 22, and saturating 100% on non-rebreather mask. GENERAL: In mild respiratory distress. HEENT: No thrush. CARDIOVASCULAR: Regular rate and rhythm. No murmurs. PULMONARY: Coarse breath sounds bilaterally. ABDOMEN: Bowel sounds present. Soft, nondistended, and nontender. PEG tube in place. EXTREMITIES: No edema. SKIN: No rash. Superficial decubitus, not grossly infected. Documented elsewhere. NEUROLOGIC: The patient is nonverbal. LABORATORY DATA: White blood cell count 13.8, hemoglobin 11.4, and platelets 463,000. Sodium 132, potassium 3.6, chloride 91, bicarbonate 31, BUN 11, and creatinine 0.3. Hemoglobin A1c is 6.5%. Liver function tests within normal limits. Troponin negative x1. Urinalysis with pyuria and bacteriuria. MICROBIOLOGY: 1. On 06/07/2017, sputum culture is pending. 2. On 06/07/2017, urine culture is pending. 3. On 06/07/2017, blood culture, no growth to date. IMAGING: Reviewed. ASSESSMENT: 1. Possible healthcare-associated pneumonia versus congestive heart failure. Sputum culture is pending. Chest x-ray shows bilateral perihilar infiltrates, which may be congestive or inflammatory. 2. Probable urinary tract infection. Urine cultures, no growth to date. 3. Acute leukocytosis after had been started on steroids. 4. Low-grade fever x1. 5. Acute hypoxemic respiratory failure on non-rebreather mask. 6. Thrombocytosis. 7. Hyponatremia/electrolyte imbalance. 8. Chronic diastolic congestive heart failure, possibly exacerbated. Echocardiogram shows an ejection fraction of 60% to 65% with mild mitral and tricuspid regurgitation and grade 1 diastolic dysfunction. 9. Dementia. 10. Bedbound. 11. Dysphagia, status post percutaneous endoscopic gastrostomy tube placement. 12. snf resident. 13. Penicillin and sulfa allergies, tolerating cefepime. 14. Full Code. PLAN: 1. Continue empiric IV vancomycin and cefepime day #2 of 7. 2. Taper steroids per pulmonary. 3. Follow up cultures. 4. Monitor CBC and temperatures. 5. Monitor BMP. 6. Monitor chest x-ray. 7. Respiratory support. Thank you. We will follow. Bob Pineda M.D. DR: BRENTON JOB#: [id number] CC: Gino Cordova M.D.; Fax#: [phone] Romo M.D; Fax#: [phone]
[2017-06-09] MEDS: DuoNeb 0.5-3(2.5)mg/3ml neb HHN SCH ×4 (00:54→19:03)
--- NOTE | 2017-06-09 01:17 | Emergency Room Report ---
History of Present Illness General Chief Complaint: Upper Respiratory Illness Source: Medical Record Present Illness Allergies: Coded Allergies: CODEINE (Verified Allergy, Unknown, 04/13/17) LORAZEPAM (Verified Allergy, Unknown, 04/11/17) reaction unknown MEPERIDINE (Unverified Allergy, Unknown, 09/03/14) PENICILLINS (Verified Allergy, Unknown, 03/06/13) SULFA (SULFONAMIDE ANTIBIOTICS) (Verified Allergy, Unknown, 03/06/13) Patient History Now: No Nursing Documentation-PMH Past Medical History: No History, Except For Hx Hypertension: Yes Hx Pacemaker: No Hx Asthma: No Hx COPD: Yes - Respiratory failure Hx Diabetes: No Hx Cancer: No Hx Gastrointestinal Problems: Yes - dysphagia, G-tube, GERD Hx Dialysis: No History Of Psychiatric Problem: Yes - Alzheimers Hx Neurological Problems: Yes - Parkinsons Hx Cerebrovascular Accident: Yes Hx Dementia: Yes Hx Alzheimer's Disease: Yes Hx Parkinson's Disease: Yes Hx Seizures: No Hx Spinal Cord Injury: Yes Hx Speech Problem: Yes Hx Dizziness: Yes Hx Headaches: Yes Hx Dysphasia: Yes Hx Weakness: Yes Hx Fatigue: Yes Physical Exam Vital Signs Date Time Temp Pulse Resp B/P Pulse Ox O2 Delivery O2 Flow Rate FiO2 06/06/17 21:53 97.2 88 18 147/73 97 Nasal Cannula 3.0 06/06/17 22:18 32 Procedures Intubation Intubation : Consent: Emergent Time of Intubation: 12:30 Intubation Method: orotracheal Tube Size (cm): 7.0 Breath Sounds after Intubation: equal Intubation Complications: no complications Post Intubation Xray: Yes Progress/Xray Impression: post procedure chest x-ray showed low endotracheal tube placement Attempts: One Patient Tolerated: Well Complications: None Medical Decision Making Diagnostic Impression: Primary Impression: Upper respiratory infection Qualified Codes: J06.9 - Acute upper respiratory infection, unspecified Additional Impressions: Proteinuria Qualified Codes: R80.9 - Proteinuria, unspecified UTI (urinary tract infection) Pneumonia Qualified Codes: J18.1 - Lobar pneumonia, unspecified organism Last Vital Signs Date Time Temp Pulse Resp B/P Pulse Ox O2 Delivery O2 Flow Rate FiO2 06/09/17 00:53 Non-Rebreather 06/09/17 00:50 128 30 100 100 06/08/17 23:36 96.4 138/61 15.0 Disposition: ADMITTED INPATIENT Condition: Serious Referrals: JANUARY KEY (PCP) Anthony Nava Jun 09, 2017 01:17
[2017-06-09 02:21] LABS: ABG ALLEN TEST POSITIVE; ABG BASE EXCESS 3.5; ABG PCO2 49.2 mmHg (35.0-45.0)
[2017-06-09] MEDS ORDERED: Morphine Sulfate 2mg/ml Inj IVP PRN (05:30)
[2017-06-09 05:38] LABS: BASOPHILS % (AUTO) 0.4 % (0.0-2.0); LYMPHOCYTES % (AUTO) 8.8 % (20.0-45.0); MEAN CORPUSCULAR HEMOGLOBIN 32.6 PG (27.0-31.0); MEAN CORPUSCULAR HGB CONC 32.1 G/DL (32.0-36.0); MEAN CORPUSCULAR VOLUME 102 FL (80-99); MEAN PLATELET VOLUME 6.1 FL (6.5-10.1); MONOCYTES % (AUTO) 6.3 % (1.0-10.0); NEUTROPHILS % (AUTO) 84.5 % (45.0-75.0); PLATELET COUNT 426 K/UL (150-450); RED BLOOD COUNT 3.39 M/UL (4.20-5.40); RED CELL DISTRIBUTION WIDTH 13.6 % (11.6-14.8); WHITE BLOOD COUNT 17.1 K/UL (4.8-10.8)
[2017-06-09] MEDS ORDERED: Solu-MEDROL 125mg Inj IVP SCH (06:00)
[2017-06-09 06:52] LABS: ALANINE AMINOTRANSFERASE 17 U/L (3-33); ALBUMIN/GLOBULIN RATIO 0.7 (1.0-2.7); ANION GAP 15 (5-15); ASPARTATE AMINO TRANSFERASE 16 U/L (5-40); BILIRUBIN,DIRECT 0.1 mg/dL (0.1-0.3); CALCIUM 10.1 mg/dL (8.6-10.2); CARBON DIOXIDE 28 mEQ/L (20-30); CHLORIDE 95 mEQ/L (98-107); CREATININE 0.6 mg/dL (0.5-0.9); HEMOLYSIS 2; POTASSIUM 3.9 mEQ/L (3.4-4.9); SODIUM 138 mEQ/L (135-145); TOTAL PROTEIN 6.6 g/dL (6.6-8.7); URIC ACID 4.6 mg/dL (3.0-7.5)
[2017-06-09 07:16] LABS: MAGNESIUM 1.4 mg/dL (1.7-2.5)
[2017-06-09 07:20] LABS: TROPONIN I < 0.30 ng/mL (<=0.30)
[2017-06-09] MEDS: D5NS 1,000 ML IV SCH ×2 (08:22→21:08)
[2017-06-09] MEDS ORDERED: Losartan 50mg tab GT SCH (09:00)
[2017-06-09] MEDS ORDERED: Sinemet 25/100 tab GT SCH (09:00)
[2017-06-09] MEDS ORDERED: Vancomycin oral 125mg/2.5ml ORAL SCH (09:00)
[2017-06-09] MEDS: Cefepime HCl 2 GM in D5W 110 ML IV SCH (09:19)
[2017-06-09] MEDS: Heparin 5000 units/ml inj SUBQ SCH ×2 (09:20→21:09)
--- NOTE | 2017-06-09 09:28 | General Progress Note ---
Assessment/Plan Status: unchanged, deteriorating Status Narrative oliguria- fluctuating BP Assessment/Plan status: 1) Aspiration pneumonia, and acute respiratory failure requiring intubation and mechanical vent (2) UTI (urinary tract infection) (3) COPD (chronic obstructive pulmonary disease) (4) Feeding by G-tube (5) Severe malnutrition (6) Parkinsons disease (7) HypoThyroidism (8) C dif (9) Low na , h/o SIADH Plan; Vanco GT DC Coozar ( has episodic hypotension) Stool C dif Urine studies Monitor lytes on steroids Pulm support Per consultants Subjective ROS Limited/Unobtainable: Yes Allergies: Coded Allergies: CODEINE (Verified Allergy, Unknown, 04/13/17) LORAZEPAM (Verified Allergy, Unknown, 04/11/17) reaction unknown MEPERIDINE (Unverified Allergy, Unknown, 09/03/14) PENICILLINS (Verified Allergy, Unknown, 03/06/13) SULFA (SULFONAMIDE ANTIBIOTICS) (Verified Allergy, Unknown, 03/06/13) Objective Last 24 Hour Vital Signs Date Time Temp Pulse Resp B/P Pulse Ox O2 Delivery O2 Flow Rate FiO2 06/09/17 08:40 107 18 30 06/09/17 08:00 99.4 113 19 140/51 100 Mechanical Ventilator 30 06/09/17 08:00 121 06/09/17 08:00 30 06/09/17 07:00 112 19 99/51 100 Mechanical Ventilator 30 06/09/17 06:55 119 22 100 Mechanical Ventilator 30 06/09/17 06:53 30 06/09/17 06:53 111 22 100 Mechanical Ventilator 30 06/09/17 06:44 108 18 30 06/09/17 06:00 111 19 100/49 100 Mechanical Ventilator 30 06/09/17 05:20 93 18 30 06/09/17 05:00 106 19 115/86 100 Mechanical Ventilator 40 06/09/17 04:00 99.1 112 26 89/49 100 Mechanical Ventilator 40 06/09/17 03:55 103 26 123/83 100 Mechanical Ventilator 40 06/09/17 03:00 100 06/09/17 02:32 93 19 40 06/09/17 02:00 95 21 107/53 97 Mechanical Ventilator 40 06/09/17 01:00 97.1 125 28 164/83 100 Mechanical Ventilator 50 06/09/17 01:00 50 06/09/17 00:53 Non-Rebreather 06/09/17 00:50 128 30 100 Non-Rebreather 100 06/09/17 00:46 122 20 50 06/09/17 00:25 84 06/08/17 23:37 88 06/08/17 23:36 96.4 94 28 138/61 100 Non-Rebreather 15.0 100 94 06/08/17 20:08 96.4 97 21 132/64 95 Venturi Mask 15.0 97 06/08/17 20:05 99 22 96 Venturi Mask 14.0 55 06/08/17 20:00 97 06/08/17 19:48 100 06/08/17 19:47 98 24 96 Non-Rebreather 15.0 100 06/08/17 19:47 Non-Rebreather 15.0 100 06/08/17 19:46 96 Non-Rebreather 15.0 100 06/08/17 16:25 97.0 90 22 149/91 100 Non-Rebreather 15.0 90 06/08/17 16:00 80 06/08/17 12:53 79 20 100 Non-Rebreather 15.0 100 06/08/17 12:44 100 06/08/17 12:44 87 18 100 Non-Rebreather 15.0 100 06/08/17 12:00 98 06/08/17 11:35 97.3 89 22 145/85 98 Non-Rebreather 89 06/08/17 11:16 Non-Rebreather 15.0 100 06/08/17 11:16 99 Non-Rebreather 15.0 100 06/08/17 10:12 97.5 06/08/17 09:28 102 20 100 Full Face 50 Intake and Output 06/08/17 06/09/17 19:00 07:00 Intake Total 430 ml Output Total 1050 ml 150 ml Balance -620 ml -150 ml IV Total 430 ml Output Urine Total 1050 ml 150 ml Laboratory Tests 06/08/17 23:42: Arterial Blood pH 6.920*L, Arterial Blood Partial Pressure CO2 198.0*H, Arterial Blood Partial Pressure O2 222.3H, Arterial Blood HCO3 40.0H, Arterial Blood Oxygen Saturation 99.0H, Arterial Blood Base Excess 2.3, Yevgeniy Test Positive 06/09/17 02:00: Arterial Blood pH 7.390, Arterial Blood Partial Pressure CO2 49.2H, Arterial Blood Partial Pressure O2 215.9H, Arterial Blood HCO3 29.2H, Arterial Blood Oxygen Saturation 99.5H, Arterial Blood Base Excess 3.5, Yevgeniy Test Positive 06/09/17 04:40: White Blood Count 17.1H, Red Blood Count 3.39L, Hemoglobin 11.0L, Hematocrit 34.4L, Mean Corpuscular Volume 102H, Mean Corpuscular Hemoglobin 32.6H, Mean Corpuscular Hemoglobin Concent 32.1, Red Cell Distribution Width 13.6, Platelet Count 426, Mean Platelet Volume 6.1L, Neutrophils (%) (Auto) 84.5H, Lymphocytes (%) (Auto) 8.8L, Monocytes (%) (Auto) 6.3, Eosinophils (%) (Auto) 0.0, Basophils (%) (Auto) 0.4, Sodium Level 138, Potassium Level 3.9, Chloride Level 95L, Carbon Dioxide Level 28, Anion Gap 15, Blood Urea Nitrogen 20, Creatinine 0.6#, Estimat Glomerular Filtration Rate , Glucose Level 136H, Uric Acid 4.6, Calcium Level 10.1, Phosphorus Level 3.0, Magnesium Level 1.4L, Total Bilirubin 0.4, Direct Bilirubin 0.1, Aspartate Amino Transf (AST/SGOT) 16, Alanine Aminotransferase (ALT/SGPT) 17, Alkaline Phosphatase 74, Troponin I < 0.30, Pro- B-Type Natriuretic Peptide 3346H, Total Protein 6.6, Albumin 2.9L, Globulin 3.7 , Albumin/Globulin Ratio 0.7L Height (Feet): 5 Height (Inches): 6.00 Weight (Pounds): 115 General Appearance: other - now intubated - in ICU Neck: limited range of motion Cardiovascular: tachycardia Respiratory/Chest: decreased breath sounds Abdomen: distended, other - GT + Extremities: other - DJD changes JANUARY KEY Jun 09, 2017 09:28
[2017-06-09] MEDS ORDERED: Succinylcholine 20mg/ml 10ml vial ONE (09:44)
[2017-06-09] MEDS: Pantoprazole Inj IVP SCH ×2 (09:47→21:08)
--- NOTE | 2017-06-09 11:23 | Pulmonolgy Critical Care Note ---
Critical Care - Asmt/Plan Problems: (1) Acute respiratory failure (2) Pneumonia (3) Malfunction of gastrostomy tube (4) COPD (chronic obstructive pulmonary disease) (5) Severe malnutrition (6) HTN (hypertension) (7) Parkinson disease Respiratory: monitor respiratory rate, adjust FIO2, CXR Cardiac: continue to monitor HR/BP Renal: F/U I&O, keep IV fluid, check electrolytes Infectious Disease: check cultures, continue antibiotics Gastrointestinal: continue feedings/current rate Endocrine: monitor blood sugar, continue sliding scale insulin Hematologic: monitor H/H, transfuse if hgb<8.5 Neurologic: PRN Ativan, PRN Morphine, keep patient comfortable Prophylaxis: Protonix Notes Reviewed: countersinker, cardio Discussed with: nurses, consultants, case management assistantseed cleaning manager - Objective Last 24 Hour Vital Signs Date Time Temp Pulse Resp B/P Pulse Ox O2 Delivery O2 Flow Rate FiO2 06/09/17 11:00 102 19 90/64 100 Mechanical Ventilator 30 06/09/17 10:33 111 20 30 06/09/17 10:20 99.4 06/09/17 10:00 103 19 113/31 100 Mechanical Ventilator 30 06/09/17 09:19 119/96 06/09/17 09:00 102 20 119/60 100 Mechanical Ventilator 30 06/09/17 08:40 107 18 30 06/09/17 08:00 99.4 113 19 140/51 100 Mechanical Ventilator 30 06/09/17 08:00 121 06/09/17 08:00 30 06/09/17 07:00 112 19 99/51 100 Mechanical Ventilator 30 06/09/17 06:55 119 22 100 Mechanical Ventilator 30 06/09/17 06:53 30 06/09/17 06:53 111 22 100 Mechanical Ventilator 30 06/09/17 06:44 108 18 30 06/09/17 06:00 111 19 100/49 100 Mechanical Ventilator 30 06/09/17 05:20 93 18 30 06/09/17 05:00 106 19 115/86 100 Mechanical Ventilator 40 06/09/17 04:00 99.1 112 26 89/49 100 Mechanical Ventilator 40 06/09/17 03:55 103 26 123/83 100 Mechanical Ventilator 40 06/09/17 03:00 100 06/09/17 02:32 93 19 40 06/09/17 02:00 95 21 107/53 97 Mechanical Ventilator 40 06/09/17 01:00 97.1 125 28 164/83 100 Mechanical Ventilator 50 06/09/17 01:00 50 06/09/17 00:53 Non-Rebreather 06/09/17 00:50 128 30 100 Non-Rebreather 100 06/09/17 00:46 122 20 50 06/09/17 00:25 84 06/08/17 23:37 88 06/08/17 23:36 96.4 94 28 138/61 100 Non-Rebreather 15.0 100 94 06/08/17 20:08 96.4 97 21 132/64 95 Venturi Mask 15.0 97 06/08/17 20:05 99 22 96 Venturi Mask 14.0 55 06/08/17 20:00 97 06/08/17 19:48 100 06/08/17 19:47 98 24 96 Non-Rebreather 15.0 100 06/08/17 19:47 Non-Rebreather 15.0 100 06/08/17 19:46 96 Non-Rebreather 15.0 100 06/08/17 16:25 97.0 90 22 149/91 100 Non-Rebreather 15.0 90 06/08/17 16:00 80 06/08/17 12:53 79 20 100 Non-Rebreather 15.0 100 06/08/17 12:44 100 06/08/17 12:44 87 18 100 Non-Rebreather 15.0 100 06/08/17 12:00 98 06/08/17 11:35 97.3 89 22 145/85 98 Non-Rebreather 89 Status: sedated Condition: critical HEENT: atraumatic Neck: full ROM Lungs: chest wall tender Abdomen: soft, non-tender, feeding tube Extremities: no C/C/E, edema Decubiti: location, stage Micro: Microbiology Date/Time Source Procedure Growth Status 06/06/17 22:15 Blood Blood Culture - Preliminary NO GROWTH AFTER 48 HOURS Resulted 06/06/17 22:10 Blood Blood Culture - Preliminary NO GROWTH AFTER 48 HOURS Resulted 06/07/17 12:20 Sputum Gram Stain - Final Resulted 06/07/17 12:20 Sputum Culture - Preliminary Staphylococcus Aureus Usual Upper Respiratory Estrella Resulted 06/06/17 22:25 Urine,Clean Catch Urine Culture - Final NO GROWTH AFTER 48 HOURS Complete Critical Care - Subjective ROS Limited/Unobtainable: Yes ICU Day: 1 Intubation Day: 1 Interval Events: developed respiratory failure last night and got intubated and transferred to ICU. Condition: critical FI02: 30 Vent Support Breath Rate: 18 Vent Support Mode: AC Vent Tidal Volume: 500 Sputum Amount: Moderate PEEP: 5.0 PIP: 21 Fluids: d5 NS 75 cc.hour Tube Feeding Amount: 55 I&O: Intake and Output 06/08/17 06/09/17 19:00 07:00 Intake Total 430 ml Output Total 1050 ml 150 ml Balance -620 ml -150 ml IV Total 430 ml Output Urine Total 1050 ml 150 ml CXR: ET in good position ET-Tube: 7.0 ET Position: 21 Labs: Laboratory Tests Test 06/08/17 23:42 06/09/17 02:00 06/09/17 04:40 Arterial Blood pH 6.920 (7.350-7.450) 7.390 (7.350-7.450) Arterial Blood Partial Pressure CO2 198.0 mmHg (35.0-45.0) *H 49.2 mmHg (35.0-45.0) H Arterial Blood Partial Pressure O2 222.3 mmHg (75.0-100.0) H 215.9 mmHg (75.0-100.0) H Arterial Blood HCO3 40.0 mmol/L (22.0-26.0) H 29.2 mmol/L (22.0-26.0) H Arterial Blood Oxygen Saturation 99.0 % (92.0-98.0) H 99.5 % (92.0-98.0) H Arterial Blood Base Excess 2.3 3.5 Yevgeniy Test Positive Positive White Blood Count 17.1 K/UL (4.8-10.8) H Red Blood Count 3.39 M/UL (4.20-5.40) L Hemoglobin 11.0 G/DL (12.0-16.0) L Hematocrit 34.4 % (37.0-47.0) L Mean Corpuscular Volume 102 FL (80-99) H Mean Corpuscular Hemoglobin 32.6 PG (27.0-31.0) H Mean Corpuscular Hemoglobin Concent 32.1 G/DL (32.0-36.0) Red Cell Distribution Width 13.6 % (11.6-14.8) Platelet Count 426 K/UL (150-450) Mean Platelet Volume 6.1 FL (6.5-10.1) L Neutrophils (%) (Auto) 84.5 % (45.0-75.0) H Lymphocytes (%) (Auto) 8.8 % (20.0-45.0) L Monocytes (%) (Auto) 6.3 % (1.0-10.0) Eosinophils (%) (Auto) 0.0 % (0.0-3.0) Basophils (%) (Auto) 0.4 % (0.0-2.0) Sodium Level 138 mEQ/L (135-145) Potassium Level 3.9 mEQ/L (3.4-4.9) Chloride Level 95 mEQ/L (98-107) L Carbon Dioxide Level 28 mEQ/L (20-30) Anion Gap 15 (5-15) Blood Urea Nitrogen 20 mg/dL (7-23) Creatinine 0.6 mg/dL (0.5-0.9) # Estimat Glomerular Filtration Rate mL/min (>60) Glucose Level 136 mg/dL (74-106) H Uric Acid 4.6 mg/dL (3.0-7.5) Calcium Level 10.1 mg/dL (8.6-10.2) Phosphorus Level 3.0 mg/dL (2.5-4.8) Magnesium Level 1.4 mg/dL (1.7-2.5) L Total Bilirubin 0.4 mg/dL (0.0-1.2) Direct Bilirubin 0.1 mg/dL (0.1-0.3) Aspartate Amino Transf (AST/SGOT) 16 U/L (5-40) Alanine Aminotransferase (ALT/SGPT) 17 U/L (3-33) Alkaline Phosphatase 74 U/L (35-104) Troponin I < 0.30 ng/mL (<=0.30) Pro-B-Type Natriuretic Peptide 3346 pg/mL (0-450) H Total Protein 6.6 g/dL (6.6-8.7) Albumin 2.9 g/dL (3.5-5.2) L Globulin 3.7 g/dL Albumin/Globulin Ratio 0.7 (1.0-2.7) L LEELEE ADLER Jun 09, 2017 11:23
--- NOTE | 2017-06-09 11:29 | Infectious Diseases Prog Note ---
Assessment/Plan Assessment/Plan ASSESSMENT: 86 y/o female with: // Possible HCAP vs CHF - SCx S.aureus ( sensi pending ) - CXR 06/07: bilateral perihilar infiltrates may be congestive or inflammatory // Probable UTI - UCx NGTD // Acute leukocytosis - worse ( SP steroids ) // Low grade fever x1 - resolved // Acute VDRF - intubated 06/09 // Thrombocytosis // Hyponatremia / electrolyte imbalance // Chronic diastolic CHF, possibly exacerbated - TTE: EF 60-65%, grade I diastolic dysfunction, mild MR, TR // Dementia // Bedbound // Dysphagia SP PEG // [facility] resident // PCN, sulfa allergies - tolerating cefepime // Full Code PLAN: - continue empiric IV vancomycin, cefepime d# 3 pending cultures - f/u cultures - monitor CBC, temperatures - monitor BMP - monitor CXR - vent support, wean at tolerated Subjective Allergies: Coded Allergies: CODEINE (Verified Allergy, Unknown, 04/13/17) LORAZEPAM (Verified Allergy, Unknown, 04/11/17) reaction unknown MEPERIDINE (Unverified Allergy, Unknown, 09/03/14) PENICILLINS (Verified Allergy, Unknown, 03/06/13) SULFA (SULFONAMIDE ANTIBIOTICS) (Verified Allergy, Unknown, 03/06/13) Subjective fevers resolved intubated for respiratory distress, transferred to ICU Objective Vital Signs Last 24 Hour Vital Signs Date Time Temp Pulse Resp B/P Pulse Ox O2 Delivery O2 Flow Rate FiO2 06/09/17 11:00 102 19 90/64 100 Mechanical Ventilator 06/09/17 10:33 111 20 30 06/09/17 10:20 99.4 06/09/17 10:00 103 19 113/31 100 Mechanical Ventilator 30 06/09/17 09:19 119/96 06/09/17 09:00 102 20 119/60 100 Mechanical Ventilator 30 06/09/17 08:40 107 18 30 06/09/17 08:00 99.4 113 19 140/51 100 Mechanical Ventilator 30 06/09/17 08:00 121 06/09/17 08:00 30 06/09/17 07:00 112 19 99/51 100 Mechanical Ventilator 06/09/17 06:55 119 22 100 Mechanical Ventilator 30 06/09/17 06:53 30 06/09/17 06:53 111 22 100 Mechanical Ventilator 30 06/09/17 06:44 108 18 30 06/09/17 06:00 111 19 100/49 100 Mechanical Ventilator 30 06/09/17 05:20 93 18 30 06/09/17 05:00 106 19 115/86 100 Mechanical Ventilator 40 06/09/17 04:00 99.1 112 26 89/49 100 Mechanical Ventilator 40 06/09/17 03:55 103 26 123/83 100 Mechanical Ventilator 40 06/09/17 03:00 100 06/09/17 02:32 93 19 40 06/09/17 02:00 95 21 107/53 97 Mechanical Ventilator 40 06/09/17 01:00 97.1 125 28 164/83 100 Mechanical Ventilator 50 06/09/17 01:00 50 06/09/17 00:53 Non-Rebreather 06/09/17 00:50 128 30 100 Non-Rebreather 100 06/09/17 00:46 122 20 50 06/09/17 00:25 84 06/08/17 23:37 88 06/08/17 23:36 96.4 94 28 138/61 100 Non-Rebreather 15.0 100 94 06/08/17 20:08 96.4 97 21 132/64 95 Venturi Mask 15.0 97 06/08/17 20:05 99 22 96 Venturi Mask 14.0 55 06/08/17 20:00 97 06/08/17 19:48 100 06/08/17 19:47 98 24 96 Non-Rebreather 15.0 100 06/08/17 19:47 Non-Rebreather 15.0 100 06/08/17 19:46 96 Non-Rebreather 15.0 100 06/08/17 16:25 97.0 90 22 149/91 100 Non-Rebreather 15.0 90 06/08/17 16:00 80 06/08/17 12:53 79 20 100 Non-Rebreather 15.0 100 06/08/17 12:44 100 06/08/17 12:44 87 18 100 Non-Rebreather 15.0 100 06/08/17 12:00 98 06/08/17 11:35 97.3 89 22 145/85 98 Non-Rebreather 89 Height (Feet): 5 Height (Inches): 6.00 Weight (Pounds): 115 General Appearance: other - intubated Respiratory/Chest: decreased breath sounds Cardiovascular: normal rate, regular rhythm Abdomen: normal bowel sounds, soft, non tender, non distended Microbiology Date/Time Source Procedure Growth Status 06/06/17 22:15 Blood Blood Culture - Preliminary NO GROWTH AFTER 48 HOURS Resulted 06/06/17 22:10 Blood Blood Culture - Preliminary NO GROWTH AFTER 48 HOURS Resulted 06/07/17 12:20 Sputum Gram Stain - Final Resulted 06/07/17 12:20 Sputum Culture - Preliminary Staphylococcus Aureus Usual Upper Respiratory Estrella Resulted 06/06/17 22:25 Urine,Clean Catch Urine Culture - Final NO GROWTH AFTER 48 HOURS Complete Laboratory Tests Test 06/08/17 23:42 06/09/17 02:00 06/09/17 04:40 Arterial Blood pH 6.920 (7.350-7.450) 7.390 (7.350-7.450) Arterial Blood Partial Pressure CO2 198.0 mmHg (35.0-45.0) *H 49.2 mmHg (35.0-45.0) H Arterial Blood Partial Pressure O2 222.3 mmHg (75.0-100.0) H 215.9 mmHg (75.0-100.0) H Arterial Blood HCO3 40.0 mmol/L (22.0-26.0) H 29.2 mmol/L (22.0-26.0) H Arterial Blood Oxygen Saturation 99.0 % (92.0-98.0) H 99.5 % (92.0-98.0) H Arterial Blood Base Excess 2.3 3.5 Yevgeniy Test Positive Positive White Blood Count 17.1 K/UL (4.8-10.8) H Red Blood Count 3.39 M/UL (4.20-5.40) L Hemoglobin 11.0 G/DL (12.0-16.0) L Hematocrit 34.4 % (37.0-47.0) L Mean Corpuscular Volume 102 FL (80-99) H Mean Corpuscular Hemoglobin 32.6 PG (27.0-31.0) H Mean Corpuscular Hemoglobin Concent 32.1 G/DL (32.0-36.0) Red Cell Distribution Width 13.6 % (11.6-14.8) Platelet Count 426 K/UL (150-450) Mean Platelet Volume 6.1 FL (6.5-10.1) L Neutrophils (%) (Auto) 84.5 % (45.0-75.0) H Lymphocytes (%) (Auto) 8.8 % (20.0-45.0) L Monocytes (%) (Auto) 6.3 % (1.0-10.0) Eosinophils (%) (Auto) 0.0 % (0.0-3.0) Basophils (%) (Auto) 0.4 % (0.0-2.0) Sodium Level 138 mEQ/L (135-145) Potassium Level 3.9 mEQ/L (3.4-4.9) Chloride Level 95 mEQ/L (98-107) L Carbon Dioxide Level 28 mEQ/L (20-30) Anion Gap 15 (5-15) Blood Urea Nitrogen 20 mg/dL (7-23) Creatinine 0.6 mg/dL (0.5-0.9) # Estimat Glomerular Filtration Rate mL/min (>60) Glucose Level 136 mg/dL (74-106) H Uric Acid 4.6 mg/dL (3.0-7.5) Calcium Level 10.1 mg/dL (8.6-10.2) Phosphorus Level 3.0 mg/dL (2.5-4.8) Magnesium Level 1.4 mg/dL (1.7-2.5) L Total Bilirubin 0.4 mg/dL (0.0-1.2) Direct Bilirubin 0.1 mg/dL (0.1-0.3) Aspartate Amino Transf (AST/SGOT) 16 U/L (5-40) Alanine Aminotransferase (ALT/SGPT) 17 U/L (3-33) Alkaline Phosphatase 74 U/L (35-104) Troponin I < 0.30 ng/mL (<=0.30) Pro-B-Type Natriuretic Peptide 3346 pg/mL (0-450) H Total Protein 6.6 g/dL (6.6-8.7) Albumin 2.9 g/dL (3.5-5.2) L Globulin 3.7 g/dL Albumin/Globulin Ratio 0.7 (1.0-2.7) L Current Medications Medications (Trade) Dose Ordered Sig/Mikaela Route PRN Reason Start Time Stop Time Status Last Admin Dose Admin Acetaminophen (Tylenol) 650 mg Q4H PRN ORAL Mild Pain (Pain Scale 1-3) 06/09/17 03:30 07/09/17 03:29 06/09/17 09:21 Acetaminophen (Tylenol) 650 mg Q4H PRN ORAL T>100.5 06/09/17 03:30 07/09/17 03:29 Albuterol/ Ipratropium (DuoNeb 0.5-3(2.5)mg/3ml) 3 ml Q6HRT HHN 06/09/17 01:00 06/14/17 00:59 06/09/17 06:53 Cefepime HCl 2 gm/ Dextrose 110 ml @ 220 mls/hr DAILY@0900 IV 06/09/17 09:00 06/16/17 08:59 06/09/17 09:19 Dextrose/Sodium Chloride (D5ns) 1,000 ml @ 75 mls/hr [id number] IV 06/09/17 08:30 07/09/17 08:29 06/09/17 08:22 Heparin Sodium (Porcine) (Heparin 5000 units/ml) 5,000 units EVERY 12 HOURS SUBQ 06/09/17 09:00 07/09/17 08:59 06/09/17 09:20 Morphine Sulfate (Morphine Sulfate) 2 mg Q6H PRN IVP PAIN 4-10 06/09/17 05:30 06/16/17 05:29 Ondansetron HCl (Zofran) 4 mg Q6H PRN IVP Nausea & Vomiting 06/09/17 05:30 07/09/17 05:29 Pantoprazole (Protonix) 40 mg EVERY 12 HOURS IVP 06/09/17 09:30 07/09/17 09:29 06/09/17 09:47 Vancomycin HCl 125 mg 125 mg FOUR TIMES A DAY ORAL 06/09/17 09:00 06/16/17 08:59 06/09/17 09:20 Vancomycin HCl/ Dextrose (Vancomycin/D5W) 275 ml @ 183.708 mls/hr Q24H IVPB 06/09/17 23:00 06/14/17 22:59 ROSSANA BENJAMIN Jun 09, 2017 11:29
--- NOTE | 2017-06-09 11:38 | Diagnostic Imaging Report ---
Indication: Status post intubation Technique: One view of the chest Comparison: 7 hours earlier Findings: Satisfactory position of endotracheal tube, tip approximately 3 cm above the ja. There is decreased bilateral perihilar edema versus infiltrates. Pleural spaces remain clear. Heart size is normal. Degenerative changes of both shoulders are again noted Impression: Improved but persistent bilateral perihilar edema versus infiltrates, over 7 hours Other findings as noted
--- NOTE | 2017-06-09 11:58 | Internal Med Progress Note ---
Subjective Date of Service: Jun 09, 2017 Physician Name Rae Charles Attending Physician Gino Cordova MD Current Medications Medications (Trade) Dose Ordered Sig/Mikaela Route PRN Reason Start Time Stop Time Status Last Admin Dose Admin Acetaminophen (Tylenol) 650 mg Q4H PRN ORAL Mild Pain (Pain Scale 1-3) 06/09/17 03:30 07/09/17 03:29 06/09/17 09:21 Acetaminophen (Tylenol) 650 mg Q4H PRN ORAL T>100.5 06/09/17 03:30 07/09/17 03:29 Albuterol/ Ipratropium (DuoNeb 0.5-3(2.5)mg/3ml) 3 ml Q6HRT HHN 06/09/17 01:00 06/14/17 00:59 06/09/17 06:53 Cefepime HCl 2 gm/ Dextrose 110 ml @ 220 mls/hr DAILY@0900 IV 06/09/17 09:00 06/16/17 08:59 06/09/17 09:19 Dextrose/Sodium Chloride (D5ns) 1,000 ml @ 75 mls/hr [id number] IV 06/09/17 08:30 07/09/17 08:29 06/09/17 08:22 Heparin Sodium (Porcine) (Heparin 5000 units/ml) 5,000 units EVERY 12 HOURS SUBQ 06/09/17 09:00 07/09/17 08:59 06/09/17 09:20 Morphine Sulfate (Morphine Sulfate) 2 mg Q6H PRN IVP PAIN 4-10 06/09/17 05:30 06/16/17 05:29 Ondansetron HCl (Zofran) 4 mg Q6H PRN IVP Nausea & Vomiting 06/09/17 05:30 07/09/17 05:29 Pantoprazole (Protonix) 40 mg EVERY 12 HOURS IVP 06/09/17 09:30 07/09/17 09:29 06/09/17 09:47 Vancomycin HCl 125 mg 125 mg FOUR TIMES A DAY ORAL 06/09/17 09:00 06/16/17 08:59 06/09/17 09:20 Vancomycin HCl/ Dextrose (Vancomycin/D5W) 275 ml @ 183.708 mls/hr Q24H IVPB 06/09/17 23:00 06/14/17 22:59 Allergies: Coded Allergies: CODEINE (Verified Allergy, Unknown, 04/13/17) LORAZEPAM (Verified Allergy, Unknown, 04/11/17) reaction unknown MEPERIDINE (Unverified Allergy, Unknown, 09/03/14) PENICILLINS (Verified Allergy, Unknown, 03/06/13) SULFA (SULFONAMIDE ANTIBIOTICS) (Verified Allergy, Unknown, 03/06/13) ROS Limited/Unobtainable: Yes Subjective 86 YO F admitted with respiratory distress. Transfered to ICU last night due to worsening respiratory failure. Currently intubated and sedated. Objective Last Vital Signs Date Time Temp Pulse Resp B/P Pulse Ox O2 Delivery O2 Flow Rate FiO2 06/09/17 11:00 102 19 90/64 100 Mechanical Ventilator 30 06/09/17 10:20 99.4 06/08/17 23:36 15.0 Laboratory Tests Test 06/08/17 23:42 06/09/17 02:00 06/09/17 04:40 Arterial Blood pH 6.920 (7.350-7.450) 7.390 (7.350-7.450) Arterial Blood Partial Pressure CO2 198.0 mmHg (35.0-45.0) *H 49.2 mmHg (35.0-45.0) H Arterial Blood Partial Pressure O2 222.3 mmHg (75.0-100.0) H 215.9 mmHg (75.0-100.0) H Arterial Blood HCO3 40.0 mmol/L (22.0-26.0) H 29.2 mmol/L (22.0-26.0) H Arterial Blood Oxygen Saturation 99.0 % (92.0-98.0) H 99.5 % (92.0-98.0) H Arterial Blood Base Excess 2.3 3.5 Yevgeniy Test Positive Positive White Blood Count 17.1 K/UL (4.8-10.8) H Red Blood Count 3.39 M/UL (4.20-5.40) L Hemoglobin 11.0 G/DL (12.0-16.0) L Hematocrit 34.4 % (37.0-47.0) L Mean Corpuscular Volume 102 FL (80-99) H Mean Corpuscular Hemoglobin 32.6 PG (27.0-31.0) H Mean Corpuscular Hemoglobin Concent 32.1 G/DL (32.0-36.0) Red Cell Distribution Width 13.6 % (11.6-14.8) Platelet Count 426 K/UL (150-450) Mean Platelet Volume 6.1 FL (6.5-10.1) L Neutrophils (%) (Auto) 84.5 % (45.0-75.0) H Lymphocytes (%) (Auto) 8.8 % (20.0-45.0) L Monocytes (%) (Auto) 6.3 % (1.0-10.0) Eosinophils (%) (Auto) 0.0 % (0.0-3.0) Basophils (%) (Auto) 0.4 % (0.0-2.0) Sodium Level 138 mEQ/L (135-145) Potassium Level 3.9 mEQ/L (3.4-4.9) Chloride Level 95 mEQ/L (98-107) L Carbon Dioxide Level 28 mEQ/L (20-30) Anion Gap 15 (5-15) Blood Urea Nitrogen 20 mg/dL (7-23) Creatinine 0.6 mg/dL (0.5-0.9) # Estimat Glomerular Filtration Rate mL/min (>60) Glucose Level 136 mg/dL (74-106) H Uric Acid 4.6 mg/dL (3.0-7.5) Calcium Level 10.1 mg/dL (8.6-10.2) Phosphorus Level 3.0 mg/dL (2.5-4.8) Magnesium Level 1.4 mg/dL (1.7-2.5) L Total Bilirubin 0.4 mg/dL (0.0-1.2) Direct Bilirubin 0.1 mg/dL (0.1-0.3) Aspartate Amino Transf (AST/SGOT) 16 U/L (5-40) Alanine Aminotransferase (ALT/SGPT) 17 U/L (3-33) Alkaline Phosphatase 74 U/L (35-104) Troponin I < 0.30 ng/mL (<=0.30) Pro-B-Type Natriuretic Peptide 3346 pg/mL (0-450) H Total Protein 6.6 g/dL (6.6-8.7) Albumin 2.9 g/dL (3.5-5.2) L Globulin 3.7 g/dL Albumin/Globulin Ratio 0.7 (1.0-2.7) L Microbiology Date/Time Source Procedure Growth Status 06/06/17 22:15 Blood Blood Culture - Preliminary NO GROWTH AFTER 48 HOURS Resulted 06/06/17 22:10 Blood Blood Culture - Preliminary NO GROWTH AFTER 48 HOURS Resulted 06/07/17 12:20 Sputum Gram Stain - Final Resulted 06/07/17 12:20 Sputum Culture - Preliminary Staphylococcus Aureus Usual Upper Respiratory Estrella Resulted 06/06/17 22:25 Urine,Clean Catch Urine Culture - Final NO GROWTH AFTER 48 HOURS Complete Intake and Output 06/08/17 06/09/17 19:00 07:00 Intake Total 430 ml Output Total 1050 ml 150 ml Balance -620 ml -150 ml IV Total 430 ml Output Urine Total 1050 ml 150 ml Objective General Appearance: lethargic, thin EENT: PERRL/EOMI, normal ENT inspection Neck: non-tender, normal alignment, supple Cardiovascular: normal peripheral pulses, normal rate, regular rhythm, no gallop/murmur, no JVD Respiratory/Chest: Mech vent; respiratory distress, accessory muscle use, crackles/rales, rhonchi - bilaterally, expiratory wheezing Abdomen: normal bowel sounds, non tender, soft, no organomegaly Neurologic: plug overwrap machine tender II-XII grossly normal Skin: normal pigmentation, warm/dry Assessment/Plan Problem List: (1) Parkinson disease Assessment & Plan: Cont sinimet (2) Cerebral vascular disease (3) Acute respiratory failure Assessment & Plan: Continue Mech vent per pulmonary. (4) COPD (chronic obstructive pulmonary disease) Assessment & Plan: Acute exacerbation. Cont IV solumedrol and albuterol nebs. Cont cefepime and vanco (5) HTN (hypertension) Assessment & Plan: Hypotension (6) Hypothyroidism (7) Alzheimer's dementia (8) Dysphagia Assessment & Plan: S/P PEG (9) Feeding by G-tube Status: deteriorating RAE CHARLES Jun 09, 2017 11:58
--- NOTE | 2017-06-09 13:41 | GI Progress Note ---
Assessment/Plan Problems: (1) Encounter for PEG (percutaneous endoscopic gastrostomy) ICD Codes: Z43.1 - Encounter for attention to gastrostomy SNOMED: 403122757, 793669336 (2) Malfunction of gastrostomy tube ICD Codes: K94.23 - Gastrostomy malfunction SNOMED: 955792171 (3) Malfunction of percutaneous endoscopic gastrostomy (PEG) tube ICD Codes: K94.23 - Gastrostomy malfunction SNOMED: 871712737 (4) Severe malnutrition ICD Codes: E43 - Unspecified severe protein-calorie malnutrition SNOMED: 02370539 (5) Alzheimer's dementia ICD Codes: G30.9 - Alzheimer's disease, unspecified SNOMED: 76525520 (6) Anemia ICD Codes: D64.9 - Anemia, unspecified SNOMED: 660599435 Status: not improved, unchanged Status Narrative Discussed with Dr. Blackburn. Assessment/Plan GT site closed. Pt will required another EGD/PEG when stable >> transferred to ICU for resp distress. consider NGT placement when more stable pulmonary care monitor H&H, prn transfusion ppi fu labs Subjective Subjective limited Objective Last 24 Hour Vital Signs Date Time Temp Pulse Resp B/P Pulse Ox O2 Delivery O2 Flow Rate FiO2 06/09/17 13:00 98 22 119/48 100 Mechanical Ventilator 30 06/09/17 12:45 110 20 100 Mechanical Ventilator 30 06/09/17 12:42 97 20 30 06/09/17 12:41 30 06/09/17 12:40 97 18 100 Mechanical Ventilator 30 06/09/17 12:00 98 06/09/17 12:00 99.0 91 16 121/56 100 Mechanical Ventilator 30 06/09/17 12:00 30 06/09/17 11:00 102 19 90/64 100 Mechanical Ventilator 30 06/09/17 10:33 111 20 30 06/09/17 10:20 99.4 06/09/17 10:00 103 19 113/31 100 Mechanical Ventilator 30 06/09/17 09:19 119/96 06/09/17 09:00 102 20 119/60 100 Mechanical Ventilator 30 06/09/17 08:40 107 18 30 06/09/17 08:00 99.4 113 19 140/51 100 Mechanical Ventilator 30 06/09/17 08:00 121 06/09/17 08:00 30 06/09/17 07:00 112 19 99/51 100 Mechanical Ventilator 30 06/09/17 06:55 119 22 100 Mechanical Ventilator 30 06/09/17 06:53 30 06/09/17 06:53 111 22 100 Mechanical Ventilator 30 06/09/17 06:44 108 18 30 06/09/17 06:00 111 19 100/49 100 Mechanical Ventilator 30 06/09/17 05:20 93 18 30 06/09/17 05:00 106 19 115/86 100 Mechanical Ventilator 40 06/09/17 04:00 99.1 112 26 89/49 100 Mechanical Ventilator 40 06/09/17 03:55 103 26 123/83 100 Mechanical Ventilator 40 06/09/17 03:00 100 06/09/17 02:32 93 19 40 06/09/17 02:00 95 21 107/53 97 Mechanical Ventilator 40 06/09/17 01:00 97.1 125 28 164/83 100 Mechanical Ventilator 50 06/09/17 01:00 50 06/09/17 00:53 Non-Rebreather 06/09/17 00:50 128 30 100 Non-Rebreather 100 06/09/17 00:46 122 20 50 06/09/17 00:25 84 06/08/17 23:37 88 06/08/17 23:36 96.4 94 28 138/61 100 Non-Rebreather 15.0 100 94 06/08/17 20:08 96.4 97 21 132/64 95 Venturi Mask 15.0 97 06/08/17 20:05 99 22 96 Venturi Mask 14.0 55 06/08/17 20:00 97 06/08/17 19:48 100 06/08/17 19:47 98 24 96 Non-Rebreather 15.0 100 06/08/17 19:47 Non-Rebreather 15.0 100 06/08/17 19:46 96 Non-Rebreather 15.0 100 06/08/17 16:25 97.0 90 22 149/91 100 Non-Rebreather 15.0 90 06/08/17 16:00 80 Intake and Output 06/08/17 06/09/17 19:00 07:00 Intake Total 430 ml Output Total 1050 ml 150 ml Balance -620 ml -150 ml IV Total 430 ml Output Urine Total 1050 ml 150 ml Laboratory Tests Test 06/08/17 23:42 06/09/17 02:00 06/09/17 04:40 Arterial Blood pH 6.920 (7.350-7.450) 7.390 (7.350-7.450) Arterial Blood Partial Pressure CO2 198.0 mmHg (35.0-45.0) *H 49.2 mmHg (35.0-45.0) H Arterial Blood Partial Pressure O2 222.3 mmHg (75.0-100.0) H 215.9 mmHg (75.0-100.0) H Arterial Blood HCO3 40.0 mmol/L (22.0-26.0) H 29.2 mmol/L (22.0-26.0) H Arterial Blood Oxygen Saturation 99.0 % (92.0-98.0) H 99.5 % (92.0-98.0) H Arterial Blood Base Excess 2.3 3.5 Yevgeniy Test Positive Positive White Blood Count 17.1 K/UL (4.8-10.8) H Red Blood Count 3.39 M/UL (4.20-5.40) L Hemoglobin 11.0 G/DL (12.0-16.0) L Hematocrit 34.4 % (37.0-47.0) L Mean Corpuscular Volume 102 FL (80-99) H Mean Corpuscular Hemoglobin 32.6 PG (27.0-31.0) H Mean Corpuscular Hemoglobin Concent 32.1 G/DL (32.0-36.0) Red Cell Distribution Width 13.6 % (11.6-14.8) Platelet Count 426 K/UL (150-450) Mean Platelet Volume 6.1 FL (6.5-10.1) L Neutrophils (%) (Auto) 84.5 % (45.0-75.0) H Lymphocytes (%) (Auto) 8.8 % (20.0-45.0) L Monocytes (%) (Auto) 6.3 % (1.0-10.0) Eosinophils (%) (Auto) 0.0 % (0.0-3.0) Basophils (%) (Auto) 0.4 % (0.0-2.0) Sodium Level 138 mEQ/L (135-145) Potassium Level 3.9 mEQ/L (3.4-4.9) Chloride Level 95 mEQ/L (98-107) L Carbon Dioxide Level 28 mEQ/L (20-30) Anion Gap 15 (5-15) Blood Urea Nitrogen 20 mg/dL (7-23) Creatinine 0.6 mg/dL (0.5-0.9) # Estimat Glomerular Filtration Rate mL/min (>60) Glucose Level 136 mg/dL (74-106) H Uric Acid 4.6 mg/dL (3.0-7.5) Calcium Level 10.1 mg/dL (8.6-10.2) Phosphorus Level 3.0 mg/dL (2.5-4.8) Magnesium Level 1.4 mg/dL (1.7-2.5) L Total Bilirubin 0.4 mg/dL (0.0-1.2) Direct Bilirubin 0.1 mg/dL (0.1-0.3) Aspartate Amino Transf (AST/SGOT) 16 U/L (5-40) Alanine Aminotransferase (ALT/SGPT) 17 U/L (3-33) Alkaline Phosphatase 74 U/L (35-104) Troponin I < 0.30 ng/mL (<=0.30) Pro-B-Type Natriuretic Peptide 3346 pg/mL (0-450) H Total Protein 6.6 g/dL (6.6-8.7) Albumin 2.9 g/dL (3.5-5.2) L Globulin 3.7 g/dL Albumin/Globulin Ratio 0.7 (1.0-2.7) L Height (Feet): 5 Height (Inches): 6.00 Weight (Pounds): 115 General Appearance: no apparent distress, alert Cardiovascular: normal rate Respiratory/Chest: other - intubated in ICU on [facility] Abdominal Exam: normal bowel sounds, non tender, soft, GT site - closed Extremities: normal range of motion, non-tender Ashley Palma N.P. Jun 09, 2017 13:41
--- NOTE | 2017-06-09 16:10 | Diagnostic Imaging Report ---
Indication: Post intubation Technique: One view of the chest Comparison: 06/07/2017 Findings: Interim endotracheal intubation, endotracheal tube tip projecting approximately 2 cm above the ja. There is increasing bilateral perihilar airspace disease. Pleural spaces remain clear. Heart size is normal Impression: Satisfactory endotracheal intubation Worsening bilateral perihilar infiltrates versus edema, over 2 days
--- NOTE | 2017-06-09 17:40 | Cardiac Electrophysiology PN ---
Assessment/Plan Assessment/Plan 1. History of hypertension.On Losartan 50 mg bid 2. Respiratory failure now intubated in ICU 3. Dysphagia status post G-tube placement.She pulled out PEG. 4. Sepsis, on cefepime and vancomycin, and albuterol. 5. Dementia. 6. Abnormal electrocardiogram with anterior ischemia on the EKG. Echocardiogram EF 65% DW RN Subjective Subjective Intubated and transferred to ICU for respiratory failure. Objective Last 24 Hour Vital Signs Date Time Temp Pulse Resp B/P Pulse Ox O2 Delivery O2 Flow Rate FiO2 06/09/17 16:44 83 18 30 06/09/17 16:00 97.9 83 18 130/61 100 Mechanical Ventilator 30 06/09/17 16:00 87 06/09/17 16:00 30 06/09/17 15:00 85 19 113/80 100 Mechanical Ventilator 30 06/09/17 14:37 93 20 30 06/09/17 14:00 83 18 116/47 100 Mechanical Ventilator 30 06/09/17 13:00 98 22 119/48 100 Mechanical Ventilator 06/09/17 12:45 110 20 100 Mechanical Ventilator 30 06/09/17 12:42 97 20 30 06/09/17 12:41 30 06/09/17 12:40 97 18 100 Mechanical Ventilator 30 06/09/17 12:00 98 06/09/17 12:00 99.0 91 16 121/56 100 Mechanical Ventilator 30 06/09/17 12:00 30 06/09/17 11:00 102 19 90/64 100 Mechanical Ventilator 06/09/17 10:33 111 20 30 06/09/17 10:20 99.4 06/09/17 10:00 103 19 113/31 100 Mechanical Ventilator 30 06/09/17 09:19 119/96 06/09/17 09:00 102 20 119/60 100 Mechanical Ventilator 30 06/09/17 08:40 107 18 30 06/09/17 08:00 99.4 113 19 140/51 100 Mechanical Ventilator 06/09/17 08:00 121 06/09/17 08:00 30 06/09/17 07:00 112 19 99/51 100 Mechanical Ventilator 30 06/09/17 06:55 119 22 100 Mechanical Ventilator 06/09/17 06:53 30 06/09/17 06:53 111 22 100 Mechanical Ventilator 30 06/09/17 06:44 108 18 30 06/09/17 06:00 111 19 100/49 100 Mechanical Ventilator 30 06/09/17 05:20 93 18 30 06/09/17 05:00 106 19 115/86 100 Mechanical Ventilator 40 06/09/17 04:00 99.1 112 26 89/49 100 Mechanical Ventilator 40 06/09/17 03:55 103 26 123/83 100 Mechanical Ventilator 40 06/09/17 03:00 100 06/09/17 02:32 93 19 40 06/09/17 02:00 95 21 107/53 97 Mechanical Ventilator 40 06/09/17 01:00 97.1 125 28 164/83 100 Mechanical Ventilator 50 06/09/17 01:00 50 06/09/17 00:53 Non-Rebreather 06/09/17 00:50 128 30 100 Non-Rebreather 100 06/09/17 00:46 122 20 50 06/09/17 00:25 84 06/08/17 23:37 88 06/08/17 23:36 96.4 94 28 138/61 100 Non-Rebreather 15.0 100 94 06/08/17 20:08 96.4 97 21 132/64 95 Venturi Mask 15.0 97 06/08/17 20:05 99 22 96 Venturi Mask 14.0 55 06/08/17 20:00 97 06/08/17 19:48 100 06/08/17 19:47 98 24 96 Non-Rebreather 15.0 100 06/08/17 19:47 Non-Rebreather 15.0 100 06/08/17 19:46 96 Non-Rebreather 15.0 100 Intake and Output 06/08/17 06/09/17 19:00 07:00 Intake Total 430 ml Output Total 1050 ml 150 ml Balance -620 ml -150 ml IV Total 430 ml Output Urine Total 1050 ml 150 ml Laboratory Tests Test 06/08/17 23:42 06/09/17 02:00 06/09/17 04:40 Arterial Blood pH 6.920 (7.350-7.450) 7.390 (7.350-7.450) Arterial Blood Partial Pressure CO2 198.0 mmHg (35.0-45.0) *H 49.2 mmHg (35.0-45.0) H Arterial Blood Partial Pressure O2 222.3 mmHg (75.0-100.0) H 215.9 mmHg (75.0-100.0) H Arterial Blood HCO3 40.0 mmol/L (22.0-26.0) H 29.2 mmol/L (22.0-26.0) H Arterial Blood Oxygen Saturation 99.0 % (92.0-98.0) H 99.5 % (92.0-98.0) H Arterial Blood Base Excess 2.3 3.5 Yevgeniy Test Positive Positive White Blood Count 17.1 K/UL (4.8-10.8) H Red Blood Count 3.39 M/UL (4.20-5.40) L Hemoglobin 11.0 G/DL (12.0-16.0) L Hematocrit 34.4 % (37.0-47.0) L Mean Corpuscular Volume 102 FL (80-99) H Mean Corpuscular Hemoglobin 32.6 PG (27.0-31.0) H Mean Corpuscular Hemoglobin Concent 32.1 G/DL (32.0-36.0) Red Cell Distribution Width 13.6 % (11.6-14.8) Platelet Count 426 K/UL (150-450) Mean Platelet Volume 6.1 FL (6.5-10.1) L Neutrophils (%) (Auto) 84.5 % (45.0-75.0) H Lymphocytes (%) (Auto) 8.8 % (20.0-45.0) L Monocytes (%) (Auto) 6.3 % (1.0-10.0) Eosinophils (%) (Auto) 0.0 % (0.0-3.0) Basophils (%) (Auto) 0.4 % (0.0-2.0) Sodium Level 138 mEQ/L (135-145) Potassium Level 3.9 mEQ/L (3.4-4.9) Chloride Level 95 mEQ/L (98-107) L Carbon Dioxide Level 28 mEQ/L (20-30) Anion Gap 15 (5-15) Blood Urea Nitrogen 20 mg/dL (7-23) Creatinine 0.6 mg/dL (0.5-0.9) # Estimat Glomerular Filtration Rate mL/min (>60) Glucose Level 136 mg/dL (74-106) H Uric Acid 4.6 mg/dL (3.0-7.5) Calcium Level 10.1 mg/dL (8.6-10.2) Phosphorus Level 3.0 mg/dL (2.5-4.8) Magnesium Level 1.4 mg/dL (1.7-2.5) L Total Bilirubin 0.4 mg/dL (0.0-1.2) Direct Bilirubin 0.1 mg/dL (0.1-0.3) Aspartate Amino Transf (AST/SGOT) 16 U/L (5-40) Alanine Aminotransferase (ALT/SGPT) 17 U/L (3-33) Alkaline Phosphatase 74 U/L (35-104) Troponin I < 0.30 ng/mL (<=0.30) Pro-B-Type Natriuretic Peptide 3346 pg/mL (0-450) H Total Protein 6.6 g/dL (6.6-8.7) Albumin 2.9 g/dL (3.5-5.2) L Globulin 3.7 g/dL Albumin/Globulin Ratio 0.7 (1.0-2.7) L Microbiology Date/Time Source Procedure Growth Status 06/06/17 22:15 Blood Blood Culture - Preliminary NO GROWTH AFTER 48 HOURS Resulted 06/06/17 22:10 Blood Blood Culture - Preliminary NO GROWTH AFTER 48 HOURS Resulted 06/07/17 12:20 Sputum Gram Stain - Final Resulted 06/07/17 12:20 Sputum Culture - Preliminary Staphylococcus Aureus Usual Upper Respiratory Estrella Resulted 06/06/17 22:25 Urine,Clean Catch Urine Culture - Final NO GROWTH AFTER 48 HOURS Complete Objective HEAD AND NECK: Showed no JVD.Orally intubated with NG tub. LUNGS: Clear. CARDIOVASCULAR: Shows regular S1 and S2 with no gallop or murmur. ABDOMEN: G-tube site covered. No PEG EXTREMITIES: 1+ pitting edema. TAY MONTELONGO Jun 09, 2017 17:40
[2017-06-09] MEDS ORDERED: Vancomycin 750 MG in D5W 275 ML IVPB SCH (23:00)
[2017-06-10] VITALS (18 sets, daily range): BP systolic 120–169; BP diastolic 52–122
[2017-06-10] MEDS: DuoNeb 0.5-3(2.5)mg/3ml neb HHN SCH ×4 (00:58→19:00)
[2017-06-10 05:25] LABS: BASOPHILS % (AUTO) 0.8 % (0.0-2.0); LYMPHOCYTES % (AUTO) 11.8 % (20.0-45.0); MEAN CORPUSCULAR HEMOGLOBIN 33.7 PG (27.0-31.0); MEAN CORPUSCULAR HGB CONC 33.8 G/DL (32.0-36.0); MEAN CORPUSCULAR VOLUME 100 FL (80-99); MEAN PLATELET VOLUME 6.5 FL (6.5-10.1); MONOCYTES % (AUTO) 6.8 % (1.0-10.0); NEUTROPHILS % (AUTO) 80.5 % (45.0-75.0); PLATELET COUNT 314 K/UL (150-450); RED BLOOD COUNT 2.81 M/UL (4.20-5.40); RED CELL DISTRIBUTION WIDTH 13.8 % (11.6-14.8); WHITE BLOOD COUNT 13.5 K/UL (4.8-10.8)
[2017-06-10 05:52] LABS: ALANINE AMINOTRANSFERASE 14 U/L (3-33); ALBUMIN/GLOBULIN RATIO 1.1 (1.0-2.7); ANION GAP 13 (5-15); ASPARTATE AMINO TRANSFERASE 36 U/L (5-40); CALCIUM 9.4 mg/dL (8.6-10.2); CARBON DIOXIDE 25 mEQ/L (20-30); CHLORIDE 99 mEQ/L (98-107); CREATININE 0.9 mg/dL (0.5-0.9); CRP QUANT 0.3 mg/dL (< 0.5); HEMOLYSIS 21; MAGNESIUM 1.5 mg/dL (1.7-2.5); PHOSPHORUS 1.5 mg/dL (2.5-4.8); POTASSIUM 2.9 mEQ/L (3.4-4.9); SODIUM 137 mEQ/L (135-145); TOTAL PROTEIN 5.9 g/dL (6.6-8.7); URIC ACID 4.6 mg/dL (3.0-7.5)
[2017-06-10] MEDS: Pantoprazole Inj IVP SCH (08:52)
[2017-06-10] MEDS: Cefepime HCl 2 GM in D5W 110 ML IV SCH (08:53)
[2017-06-10] MEDS: Heparin 5000 units/ml inj SUBQ SCH (08:54)
--- NOTE | 2017-06-10 10:40 | Pulmonolgy Critical Care Note ---
Critical Care - Asmt/Plan Problems: (1) Acute respiratory failure (2) Pneumonia (3) Malfunction of gastrostomy tube (4) COPD (chronic obstructive pulmonary disease) (5) Severe malnutrition (6) HTN (hypertension) (7) Parkinson disease Respiratory: monitor respiratory rate, adjust FIO2, CXR Cardiac: continue to monitor HR/BP Renal: F/U I&O, keep IV fluid, check electrolytes Infectious Disease: check cultures, continue antibiotics Gastrointestinal: continue feedings/current rate Endocrine: monitor blood sugar, check TSH, check HgA1C Hematologic: monitor H/H, transfuse if hgb<8.5 Neurologic: PRN Ativan, PRN Morphine, keep patient comfortable Affect: PRN ativan Prophylaxis: Protonix, Heparin Time Spent (Minutes): 40 Notes Reviewed: head of insight, cardio, renal, ID Critical Care - Objective Last 24 Hour Vital Signs Date Time Temp Pulse Resp B/P Pulse Ox O2 Delivery O2 Flow Rate FiO2 06/10/17 08:53 77 24 30 06/10/17 08:00 99.3 77 23 132/82 100 Mechanical Ventilator 30 06/10/17 07:14 81 18 100 Mechanical Ventilator 30 06/10/17 07:12 30 06/10/17 07:04 30 06/10/17 07:04 76 18 100 Mechanical Ventilator 30 06/10/17 07:02 80 18 30 06/10/17 07:00 97.8 66 20 126/62 100 Mechanical Ventilator 06/10/17 06:00 67 20 128/85 100 Mechanical Ventilator 06/10/17 05:21 75 21 30 06/10/17 05:00 97.8 64 20 136/68 100 Mechanical Ventilator 06/10/17 04:00 97.5 62 20 135/72 100 Mechanical Ventilator 30 06/10/17 04:00 30 06/10/17 04:00 97.9 62 20 142/62 100 Mechanical Ventilator 06/10/17 04:00 73 06/10/17 03:27 88 18 30 06/10/17 03:00 79 22 121/54 100 Mechanical Ventilator 30 06/10/17 02:00 71 22 120/52 100 Mechanical Ventilator 30 06/10/17 01:15 78 18 100 Mechanical Ventilator 30 06/10/17 01:00 86 22 146/67 100 Mechanical Ventilator 30 06/10/17 00:58 74 21 100 Mechanical Ventilator 30 06/10/17 00:58 30 06/10/17 00:56 74 19 30 06/10/17 00:00 99.2 65 18 141/59 100 Mechanical Ventilator 30 06/10/17 00:00 30 06/10/17 00:00 73 06/09/17 23:00 80 17 115/95 100 Mechanical Ventilator 30 06/09/17 22:50 99 22 30 06/09/17 22:00 81 17 138/85 100 Mechanical Ventilator 30 06/09/17 21:11 99.2 06/09/17 21:10 77 18 30 06/09/17 21:00 81 17 119/86 100 Mechanical Ventilator 30 06/09/17 20:00 99.9 85 18 146/70 100 Mechanical Ventilator 30 06/09/17 20:00 93 06/09/17 20:00 30 06/09/17 19:20 89 19 100 Mechanical Ventilator 30 06/09/17 19:02 30 06/09/17 19:01 82 18 100 Mechanical Ventilator 30 06/09/17 19:00 88 16 132/72 100 Mechanical Ventilator 30 06/09/17 19:00 82 18 30 06/09/17 18:00 78 19 142/64 100 Mechanical Ventilator 30 06/09/17 17:00 77 19 143/79 100 Mechanical Ventilator 30 06/09/17 16:44 83 18 30 06/09/17 16:00 97.9 83 18 130/61 100 Mechanical Ventilator 30 06/09/17 16:00 87 06/09/17 16:00 30 06/09/17 15:00 85 19 113/80 100 Mechanical Ventilator 30 06/09/17 14:37 93 20 30 06/09/17 14:00 83 18 116/47 100 Mechanical Ventilator 30 06/09/17 13:00 98 22 119/48 100 Mechanical Ventilator 30 06/09/17 12:45 110 20 100 Mechanical Ventilator 30 06/09/17 12:42 97 20 30 06/09/17 12:41 30 06/09/17 12:40 97 18 100 Mechanical Ventilator 30 06/09/17 12:00 98 06/09/17 12:00 99.0 91 16 121/56 100 Mechanical Ventilator 30 06/09/17 12:00 30 06/09/17 11:00 102 19 90/64 100 Mechanical Ventilator 30 Status: awake, sedated Condition: grave, improving Neck: full ROM Lungs: clear Heart: HR/BP stable, HR/BP unstable Abdomen: soft, non-tender, active bowel sounds Extremities: no C/C/E, edema Decubiti: location, stage Micro: Microbiology Date/Time Source Procedure Growth Status 06/07/17 12:20 Sputum Gram Stain - Final Complete 06/07/17 12:20 Sputum Culture - Final Staphylococcus Aureus Usual Upper Respiratory Estrella Complete Critical Care - Subjective ROS Limited/Unobtainable: Yes ICU Day: 2 Intubation Day: 2 Condition: critical FI02: 30 Vent Support Breath Rate: 18 Vent Support Mode: AC Vent Tidal Volume: 500 Sputum Amount: Moderate PEEP: 5.0 PIP: 18 Fluids: d5 NS 75 cc.hour Tube Feeding Amount: 40 I&O: Intake and Output 06/09/17 06/10/17 19:00 07:00 Intake Total 3460 ml 1060 ml Output Total 195 ml 210 ml Balance 3265 ml 850 ml Intake Free Water 100 ml IV Total 3360 ml 600 ml Tube Feeding 40 ml 360 ml Other 60 ml Output Urine Total 195 ml 210 ml CXR: bilateral infiltrate, ET in good position ET-Tube: 7.0 ET Position: 21 Labs: Laboratory Tests Test 06/09/17 21:45 06/10/17 04:15 Vancomycin Level Trough 12.2 ug/mL (5.0-12.0) H White Blood Count 13.5 K/UL (4.8-10.8) H Red Blood Count 2.81 M/UL (4.20-5.40) L Hemoglobin 9.5 G/DL (12.0-16.0) L Hematocrit 28.0 % (37.0-47.0) L Mean Corpuscular Volume 100 FL (80-99) H Mean Corpuscular Hemoglobin 33.7 PG (27.0-31.0) H Mean Corpuscular Hemoglobin Concent 33.8 G/DL (32.0-36.0) Red Cell Distribution Width 13.8 % (11.6-14.8) Platelet Count 314 K/UL (150-450) Mean Platelet Volume 6.5 FL (6.5-10.1) Neutrophils (%) (Auto) 80.5 % (45.0-75.0) H Lymphocytes (%) (Auto) 11.8 % (20.0-45.0) L Monocytes (%) (Auto) 6.8 % (1.0-10.0) Eosinophils (%) (Auto) 0.0 % (0.0-3.0) Basophils (%) (Auto) 0.8 % (0.0-2.0) Sodium Level 137 mEQ/L (135-145) Potassium Level 2.9 mEQ/L (3.4-4.9) L Chloride Level 99 mEQ/L (98-107) Carbon Dioxide Level 25 mEQ/L (20-30) Anion Gap 13 (5-15) Blood Urea Nitrogen 28 mg/dL (7-23) H Creatinine 0.9 mg/dL (0.5-0.9) Estimat Glomerular Filtration Rate mL/min (>60) Glucose Level 143 mg/dL (74-106) H Uric Acid 4.6 mg/dL (3.0-7.5) Calcium Level 9.4 mg/dL (8.6-10.2) Phosphorus Level 1.5 mg/dL (2.5-4.8) L Magnesium Level 1.5 mg/dL (1.7-2.5) L Total Bilirubin 0.4 mg/dL (0.0-1.2) Aspartate Amino Transf (AST/SGOT) 36 U/L (5-40) Alanine Aminotransferase (ALT/SGPT) 14 U/L (3-33) Alkaline Phosphatase 54 U/L (35-104) C-Reactive Protein, Quantitative 0.3 mg/dL (< 0.5) Pro-B-Type Natriuretic Peptide 1206 pg/mL (0-450) H Total Protein 5.9 g/dL (6.6-8.7) L Albumin 3.2 g/dL (3.5-5.2) L Globulin 2.7 g/dL Albumin/Globulin Ratio 1.1 (1.0-2.7) LEELEE ADLER Jun 10, 2017 10:40
[2017-06-10] MEDS ORDERED: Potassium Phosphate 30 MM in NS 275 ML IV ONE (11:00)
[2017-06-10] MEDS: D5NS 1,000 ML IV SCH (11:10)
--- NOTE | 2017-06-10 11:16 | General Progress Note ---
Assessment/Plan Status: stable - from renal stand Status Narrative Low K and Phos and Mag Assessment/Plan status: 1) Aspiration pneumonia, and acute respiratory failure requiring intubation and mechanical vent (2) UTI (urinary tract infection) (3) COPD (chronic obstructive pulmonary disease) (4) Feeding by G-tube (5) Severe malnutrition (6) Parkinsons disease (7) HypoThyroidism (8) C dif (9) Low na , h/o SIADH Plan; K and Phos and Mag supp Vanco GT Off BP meds- Stool C dif Monitor lytes OFF steroids Pulm support Per consultants Subjective ROS Limited/Unobtainable: Yes Allergies: Coded Allergies: CODEINE (Verified Allergy, Unknown, 04/13/17) LORAZEPAM (Verified Allergy, Unknown, 04/11/17) reaction unknown MEPERIDINE (Unverified Allergy, Unknown, 09/03/14) PENICILLINS (Verified Allergy, Unknown, 03/06/13) SULFA (SULFONAMIDE ANTIBIOTICS) (Verified Allergy, Unknown, 03/06/13) Objective Last 24 Hour Vital Signs Date Time Temp Pulse Resp B/P Pulse Ox O2 Delivery O2 Flow Rate FiO2 06/10/17 10:58 81 18 30 06/10/17 08:53 77 24 30 06/10/17 08:00 99.3 77 23 132/82 100 Mechanical Ventilator 06/10/17 07:14 81 18 100 Mechanical Ventilator 06/10/17 07:12 30 06/10/17 07:04 30 06/10/17 07:04 76 18 100 Mechanical Ventilator 06/10/17 07:02 80 18 30 06/10/17 07:00 97.8 66 20 126/62 100 Mechanical Ventilator 06/10/17 06:00 67 20 128/85 100 Mechanical Ventilator 06/10/17 05:21 75 21 30 06/10/17 05:00 97.8 64 20 136/68 100 Mechanical Ventilator 06/10/17 04:00 97.5 62 20 135/72 100 Mechanical Ventilator 06/10/17 04:00 30 06/10/17 04:00 97.9 62 20 142/62 100 Mechanical Ventilator 06/10/17 04:00 73 06/10/17 03:27 88 18 30 06/10/17 03:00 79 22 121/54 100 Mechanical Ventilator 06/10/17 02:00 71 22 120/52 100 Mechanical Ventilator 30 06/10/17 01:15 78 18 100 Mechanical Ventilator 30 06/10/17 01:00 86 22 146/67 100 Mechanical Ventilator 30 06/10/17 00:58 74 21 100 Mechanical Ventilator 30 06/10/17 00:58 30 06/10/17 00:56 74 19 30 06/10/17 00:00 99.2 65 18 141/59 100 Mechanical Ventilator 30 06/10/17 00:00 30 06/10/17 00:00 73 06/09/17 23:00 80 17 115/95 100 Mechanical Ventilator 30 06/09/17 22:50 99 22 30 06/09/17 22:00 81 17 138/85 100 Mechanical Ventilator 30 06/09/17 21:11 99.2 06/09/17 21:10 77 18 30 06/09/17 21:00 81 17 119/86 100 Mechanical Ventilator 30 06/09/17 20:00 99.9 85 18 146/70 100 Mechanical Ventilator 30 06/09/17 20:00 93 06/09/17 20:00 30 06/09/17 19:20 89 19 100 Mechanical Ventilator 30 06/09/17 19:02 30 06/09/17 19:01 82 18 100 Mechanical Ventilator 30 06/09/17 19:00 88 16 132/72 100 Mechanical Ventilator 30 06/09/17 19:00 82 18 30 06/09/17 18:00 78 19 142/64 100 Mechanical Ventilator 30 06/09/17 17:00 77 19 143/79 100 Mechanical Ventilator 30 06/09/17 16:44 83 18 30 06/09/17 16:00 97.9 83 18 130/61 100 Mechanical Ventilator 30 06/09/17 16:00 87 06/09/17 16:00 30 06/09/17 15:00 85 19 113/80 100 Mechanical Ventilator 30 06/09/17 14:37 93 20 30 06/09/17 14:00 83 18 116/47 100 Mechanical Ventilator 30 06/09/17 13:00 98 22 119/48 100 Mechanical Ventilator 30 06/09/17 12:45 110 20 100 Mechanical Ventilator 30 06/09/17 12:42 97 20 30 06/09/17 12:41 30 06/09/17 12:40 97 18 100 Mechanical Ventilator 30 06/09/17 12:00 98 8/2/17 12:00 99.0 91 16 121/56 100 Mechanical Ventilator 30 06/09/17 12:00 30 Intake and Output 06/09/17 06/10/17 19:00 07:00 Intake Total 3460 ml 1060 ml Output Total 195 ml 210 ml Balance 3265 ml 850 ml Intake Free Water 100 ml IV Total 3360 ml 600 ml Tube Feeding 40 ml 360 ml Other 60 ml Output Urine Total 195 ml 210 ml Laboratory Tests 06/09/17 21:45: Vancomycin Level Trough 12.2H 06/10/17 04:15: White Blood Count 13.5H, Red Blood Count 2.81L, Hemoglobin 9.5L, Hematocrit 28.0L, Mean Corpuscular Volume 100H, Mean Corpuscular Hemoglobin 33.7H, Mean Corpuscular Hemoglobin Concent 33.8, Red Cell Distribution Width 13.8, Platelet Count 314, Mean Platelet Volume 6.5, Neutrophils (%) (Auto) 80.5H, Lymphocytes ( %) (Auto) 11.8L, Monocytes (%) (Auto) 6.8, Eosinophils (%) (Auto) 0.0, Basophils (%) (Auto) 0.8, Sodium Level 137, Potassium Level 2.9L, Chloride Level 99, Carbon Dioxide Level 25, Anion Gap 13, Blood Urea Nitrogen 28H, Creatinine 0.9, Estimat Glomerular Filtration Rate , Glucose Level 143H, Uric Acid 4.6, Calcium Level 9.4, Phosphorus Level 1.5L, Magnesium Level 1.5L, Total Bilirubin 0.4, Aspartate Amino Transf (AST/SGOT) 36, Alanine Aminotransferase ( ALT/SGPT) 14, Alkaline Phosphatase 54, C-Reactive Protein, Quantitative 0.3, Pro -B-Type Natriuretic Peptide 1206H, Total Protein 5.9L, Albumin 3.2L, Globulin 2.7, Albumin/Globulin Ratio 1.1 Height (Feet): 5 Height (Inches): 6.00 Weight (Pounds): 115 General Appearance: no apparent distress EENT: other - intubated Cardiovascular: normal rate Abdomen: distended Objective other PE not changed JANUARY KEY Jun 10, 2017 11:16
[2017-06-10] MEDS ORDERED: Prochlorperazine 10mg tab ORAL PRN ×2 (11:45→23:45)
[2017-06-10] MEDS ORDERED: Glycopyrrolate 0.2mg/ml 1ml Vial IV PRN ×2 (11:45→23:45)
[2017-06-10] MEDS ORDERED: Haloperidol 5mg/ml Inj IM PRN ×2 (11:45→18:15)
--- NOTE | 2017-06-10 11:46 | General Progress Note ---
Progress Note Progress Note I met with all three sisters with NABOR Bliss present. We discussed code status and further plan of care. All three sisters agreed on extubation and stopping artificial feeding. We will stop the ventilation and NG tube. She will be comfort and palliative care. LEELEE ADLER Jun 10, 2017 11:46
[2017-06-10] MEDS ORDERED: Morphine Sulfate 4mg/ml Inj IVP PRN (12:00)
[2017-06-10] MEDS ORDERED: Morphine Sulfate 10mg/ml Inj IVP ONE (12:30)
[2017-06-10] MEDS ORDERED: Artificial Tears 1.4% Op Soln BOTH EYES PRN (13:00)
--- NOTE | 2017-06-10 13:32 | GI Progress Note ---
Assessment/Plan Problems: (1) Encounter for PEG (percutaneous endoscopic gastrostomy) ICD Codes: Z43.1 - Encounter for attention to gastrostomy SNOMED: 972247082, 517999572 (2) Malfunction of gastrostomy tube ICD Codes: K94.23 - Gastrostomy malfunction SNOMED: 632782614 (3) Malfunction of percutaneous endoscopic gastrostomy (PEG) tube ICD Codes: K94.23 - Gastrostomy malfunction SNOMED: 923145474 (4) Severe malnutrition ICD Codes: E43 - Unspecified severe protein-calorie malnutrition SNOMED: 14413016 (5) Alzheimer's dementia ICD Codes: G30.9 - Alzheimer's disease, unspecified SNOMED: 33344167 (6) Anemia ICD Codes: D64.9 - Anemia, unspecified SNOMED: 163788530 Status: not improved, unchanged Status Narrative Discussed with Dr. Blackburn. Assessment/Plan pt for terminal extubation, see primary note. Subjective Subjective limited Objective Last 24 Hour Vital Signs Date Time Temp Pulse Resp B/P Pulse Ox O2 Delivery O2 Flow Rate FiO2 06/10/17 12:59 82 18 100 Mechanical Ventilator 30 06/10/17 12:51 64 18 100 Mechanical Ventilator 30 06/10/17 12:51 30 06/10/17 12:48 63 18 30 06/10/17 10:58 81 18 30 06/10/17 08:53 77 24 30 06/10/17 08:00 72 06/10/17 08:00 99.3 77 23 132/82 100 Mechanical Ventilator 30 06/10/17 07:14 81 18 100 Mechanical Ventilator 30 06/10/17 07:12 30 06/10/17 07:04 30 06/10/17 07:04 76 18 100 Mechanical Ventilator 30 06/10/17 07:02 80 18 30 06/10/17 07:00 97.8 66 20 126/62 100 Mechanical Ventilator 30 06/10/17 06:00 67 20 128/85 100 Mechanical Ventilator 30 06/10/17 05:21 75 21 30 06/10/17 05:00 97.8 64 20 136/68 100 Mechanical Ventilator 30 06/10/17 04:00 97.5 62 20 135/72 100 Mechanical Ventilator 30 06/10/17 04:00 30 06/10/17 04:00 97.9 62 20 142/62 100 Mechanical Ventilator 30 06/10/17 04:00 73 06/10/17 03:27 88 18 30 06/10/17 03:00 79 22 121/54 100 Mechanical Ventilator 30 06/10/17 02:00 71 22 120/52 100 Mechanical Ventilator 30 06/10/17 01:15 78 18 100 Mechanical Ventilator 30 06/10/17 01:00 86 22 146/67 100 Mechanical Ventilator 30 06/10/17 00:58 74 21 100 Mechanical Ventilator 30 06/10/17 00:58 30 06/10/17 00:56 74 19 30 06/10/17 00:00 99.2 65 18 141/59 100 Mechanical Ventilator 30 06/10/17 00:00 30 06/10/17 00:00 73 06/09/17 23:00 80 17 115/95 100 Mechanical Ventilator 30 06/09/17 22:50 99 22 30 06/09/17 22:00 81 17 138/85 100 Mechanical Ventilator 30 06/09/17 21:11 99.2 06/09/17 21:10 77 18 30 06/09/17 21:00 81 17 119/86 100 Mechanical Ventilator 30 06/09/17 20:00 99.9 85 18 146/70 100 Mechanical Ventilator 30 06/09/17 20:00 93 06/09/17 20:00 30 06/09/17 19:20 89 19 100 Mechanical Ventilator 30 06/09/17 19:02 30 06/09/17 19:01 82 18 100 Mechanical Ventilator 30 06/09/17 19:00 88 16 132/72 100 Mechanical Ventilator 30 06/09/17 19:00 82 18 30 06/09/17 18:00 78 19 142/64 100 Mechanical Ventilator 30 06/09/17 17:00 77 19 143/79 100 Mechanical Ventilator 30 06/09/17 16:44 83 18 30 06/09/17 16:00 97.9 83 18 130/61 100 Mechanical Ventilator 30 06/09/17 16:00 87 06/09/17 16:00 30 06/09/17 15:00 85 19 113/80 100 Mechanical Ventilator 30 06/09/17 14:37 93 20 30 06/09/17 14:00 83 18 116/47 100 Mechanical Ventilator 30 Intake and Output 06/09/17 06/10/17 19:00 07:00 Intake Total 3460 ml 1060 ml Output Total 195 ml 210 ml Balance 3265 ml 850 ml Intake Free Water 100 ml IV Total 3360 ml 600 ml Tube Feeding 40 ml 360 ml Other 60 ml Output Urine Total 195 ml 210 ml Laboratory Tests Test 06/09/17 21:45 06/10/17 04:15 Vancomycin Level Trough 12.2 ug/mL (5.0-12.0) H White Blood Count 13.5 K/UL (4.8-10.8) H Red Blood Count 2.81 M/UL (4.20-5.40) L Hemoglobin 9.5 G/DL (12.0-16.0) L Hematocrit 28.0 % (37.0-47.0) L Mean Corpuscular Volume 100 FL (80-99) H Mean Corpuscular Hemoglobin 33.7 PG (27.0-31.0) H Mean Corpuscular Hemoglobin Concent 33.8 G/DL (32.0-36.0) Red Cell Distribution Width 13.8 % (11.6-14.8) Platelet Count 314 K/UL (150-450) Mean Platelet Volume 6.5 FL (6.5-10.1) Neutrophils (%) (Auto) 80.5 % (45.0-75.0) H Lymphocytes (%) (Auto) 11.8 % (20.0-45.0) L Monocytes (%) (Auto) 6.8 % (1.0-10.0) Eosinophils (%) (Auto) 0.0 % (0.0-3.0) Basophils (%) (Auto) 0.8 % (0.0-2.0) Sodium Level 137 mEQ/L (135-145) Potassium Level 2.9 mEQ/L (3.4-4.9) L Chloride Level 99 mEQ/L (98-107) Carbon Dioxide Level 25 mEQ/L (20-30) Anion Gap 13 (5-15) Blood Urea Nitrogen 28 mg/dL (7-23) H Creatinine 0.9 mg/dL (0.5-0.9) Estimat Glomerular Filtration Rate mL/min (>60) Glucose Level 143 mg/dL (74-106) H Uric Acid 4.6 mg/dL (3.0-7.5) Calcium Level 9.4 mg/dL (8.6-10.2) Phosphorus Level 1.5 mg/dL (2.5-4.8) L Magnesium Level 1.5 mg/dL (1.7-2.5) L Total Bilirubin 0.4 mg/dL (0.0-1.2) Aspartate Amino Transf (AST/SGOT) 36 U/L (5-40) Alanine Aminotransferase (ALT/SGPT) 14 U/L (3-33) Alkaline Phosphatase 54 U/L (35-104) C-Reactive Protein, Quantitative 0.3 mg/dL (< 0.5) Pro-B-Type Natriuretic Peptide 1206 pg/mL (0-450) H Total Protein 5.9 g/dL (6.6-8.7) L Albumin 3.2 g/dL (3.5-5.2) L Globulin 2.7 g/dL Albumin/Globulin Ratio 1.1 (1.0-2.7) Height (Feet): 5 Height (Inches): 6.00 Weight (Pounds): 115 General Appearance: no apparent distress, alert Cardiovascular: normal rate Respiratory/Chest: other - mech vent Abdominal Exam: other - NGT Ashley Palma NEstefani Jun 10, 2017 13:32
--- NOTE | 2017-06-10 16:44 | Cardiac Electrophysiology PN ---
Assessment/Plan Assessment/Plan 1. Hypertension. Losartan DCed as now she is comfort care 2. Respiratory failure. Terminally extubated 3. Dysphagia status post G-tube placement.She pulled out PEG. 4. Sepsis, on cefepime and vancomycin, and albuterol. 5. Dementia. 6. Abnormal electrocardiogram with anterior ischemia on the EKG. Echocardiogram EF 65% 7. Comfort care. DW RN and family Subjective Subjective Terminally extubated today . Family at bedside. Has spontaneous breathing. Objective Last 24 Hour Vital Signs Date Time Temp Pulse Resp B/P Pulse Ox O2 Delivery O2 Flow Rate FiO2 06/10/17 16:00 80 06/10/17 16:00 5.0 06/10/17 16:00 98.4 91 24 152/70 100 Nasal Cannula 5.0 06/10/17 15:00 83 26 153/88 100 Nasal Cannula 5.0 06/10/17 14:00 100 25 148/75 98 Nasal Cannula 5.0 06/10/17 13:25 Nasal Cannula 4.0 36 06/10/17 13:00 80 19 155/95 100 Mechanical Ventilator 30 06/10/17 12:59 82 18 100 Mechanical Ventilator 30 06/10/17 12:51 64 18 100 Mechanical Ventilator 30 06/10/17 12:51 30 06/10/17 12:48 63 18 30 06/10/17 12:00 30 06/10/17 12:00 98.6 72 18 133/85 100 Mechanical Ventilator 30 06/10/17 12:00 72 06/10/17 11:00 68 16 140/61 100 Mechanical Ventilator 30 06/10/17 10:58 81 18 30 06/10/17 10:00 76 19 169/122 100 Mechanical Ventilator 30 06/10/17 09:00 76 18 146/76 100 Mechanical Ventilator 30 06/10/17 08:53 77 24 30 06/10/17 08:00 72 06/10/17 08:00 99.3 77 23 132/82 100 Mechanical Ventilator 30 06/10/17 07:14 81 18 100 Mechanical Ventilator 30 06/10/17 07:12 30 06/10/17 07:04 30 06/10/17 07:04 76 18 100 Mechanical Ventilator 30 06/10/17 07:02 80 18 30 06/10/17 07:00 97.8 66 20 126/62 100 Mechanical Ventilator 30 06/10/17 06:00 67 20 128/85 100 Mechanical Ventilator 30 06/10/17 05:21 75 21 30 06/10/17 05:00 97.8 64 20 136/68 100 Mechanical Ventilator 30 06/10/17 04:00 97.5 62 20 135/72 100 Mechanical Ventilator 30 06/10/17 04:00 30 06/10/17 04:00 97.9 62 20 142/62 100 Mechanical Ventilator 30 06/10/17 04:00 73 06/10/17 03:27 88 18 30 06/10/17 03:00 79 22 121/54 100 Mechanical Ventilator 30 06/10/17 02:00 71 22 120/52 100 Mechanical Ventilator 30 06/10/17 01:15 78 18 100 Mechanical Ventilator 30 06/10/17 01:00 86 22 146/67 100 Mechanical Ventilator 30 06/10/17 00:58 74 21 100 Mechanical Ventilator 30 06/10/17 00:58 30 06/10/17 00:56 74 19 30 06/10/17 00:00 99.2 65 18 141/59 100 Mechanical Ventilator 30 06/10/17 00:00 30 06/10/17 00:00 73 06/09/17 23:00 80 17 115/95 100 Mechanical Ventilator 30 06/09/17 22:50 99 22 30 06/09/17 22:00 81 17 138/85 100 Mechanical Ventilator 30 06/09/17 21:11 99.2 06/09/17 21:10 77 18 30 06/09/17 21:00 81 17 119/86 100 Mechanical Ventilator 30 06/09/17 20:00 99.9 85 18 146/70 100 Mechanical Ventilator 30 06/09/17 20:00 93 06/09/17 20:00 30 06/09/17 19:20 89 19 100 Mechanical Ventilator 30 06/09/17 19:02 30 06/09/17 19:01 82 18 100 Mechanical Ventilator 30 06/09/17 19:00 88 16 132/72 100 Mechanical Ventilator 30 06/09/17 19:00 82 18 30 06/09/17 18:00 78 19 142/64 100 Mechanical Ventilator 30 06/09/17 17:00 77 19 143/79 100 Mechanical Ventilator 30 06/09/17 16:44 83 18 30 Intake and Output 06/09/17 06/10/17 19:00 07:00 Intake Total 3460 ml 1060 ml Output Total 195 ml 210 ml Balance 3265 ml 850 ml Intake Free Water 100 ml IV Total 3360 ml 600 ml Tube Feeding 40 ml 360 ml Other 60 ml Output Urine Total 195 ml 210 ml Laboratory Tests Test 06/09/17 21:45 06/10/17 04:15 Vancomycin Level Trough 12.2 ug/mL (5.0-12.0) H White Blood Count 13.5 K/UL (4.8-10.8) H Red Blood Count 2.81 M/UL (4.20-5.40) L Hemoglobin 9.5 G/DL (12.0-16.0) L Hematocrit 28.0 % (37.0-47.0) L Mean Corpuscular Volume 100 FL (80-99) H Mean Corpuscular Hemoglobin 33.7 PG (27.0-31.0) H Mean Corpuscular Hemoglobin Concent 33.8 G/DL (32.0-36.0) Red Cell Distribution Width 13.8 % (11.6-14.8) Platelet Count 314 K/UL (150-450) Mean Platelet Volume 6.5 FL (6.5-10.1) Neutrophils (%) (Auto) 80.5 % (45.0-75.0) H Lymphocytes (%) (Auto) 11.8 % (20.0-45.0) L Monocytes (%) (Auto) 6.8 % (1.0-10.0) Eosinophils (%) (Auto) 0.0 % (0.0-3.0) Basophils (%) (Auto) 0.8 % (0.0-2.0) Sodium Level 137 mEQ/L (135-145) Potassium Level 2.9 mEQ/L (3.4-4.9) L Chloride Level 99 mEQ/L (98-107) Carbon Dioxide Level 25 mEQ/L (20-30) Anion Gap 13 (5-15) Blood Urea Nitrogen 28 mg/dL (7-23) H Creatinine 0.9 mg/dL (0.5-0.9) Estimat Glomerular Filtration Rate mL/min (>60) Glucose Level 143 mg/dL (74-106) H Uric Acid 4.6 mg/dL (3.0-7.5) Calcium Level 9.4 mg/dL (8.6-10.2) Phosphorus Level 1.5 mg/dL (2.5-4.8) L Magnesium Level 1.5 mg/dL (1.7-2.5) L Total Bilirubin 0.4 mg/dL (0.0-1.2) Aspartate Amino Transf (AST/SGOT) 36 U/L (5-40) Alanine Aminotransferase (ALT/SGPT) 14 U/L (3-33) Alkaline Phosphatase 54 U/L (35-104) C-Reactive Protein, Quantitative 0.3 mg/dL (< 0.5) Pro-B-Type Natriuretic Peptide 1206 pg/mL (0-450) H Total Protein 5.9 g/dL (6.6-8.7) L Albumin 3.2 g/dL (3.5-5.2) L Globulin 2.7 g/dL Albumin/Globulin Ratio 1.1 (1.0-2.7) Objective HEAD AND NECK: Showed no JVD. LUNGS: Clear. CARDIOVASCULAR: Shows regular S1 and S2 with no gallop or murmur. ABDOMEN: G-tube site covered. EXTREMITIES: 1+ pitting edema. TAY MONTELONGO Jun 10, 2017 16:44
--- NOTE | 2017-06-10 18:37 | Infectious Diseases Prog Note ---
Assessment/Plan Assessment/Plan ASSESSMENT: 86 y/o female with: // Possible MRSA HCAP with CHF exacerbation - SCx MRSA - CXR 06/07: bilateral perihilar infiltrates may be congestive or inflammatory // Probable UTI - UCx NGTD // Acute leukocytosis - decreased slightly from yesterday ( SP steroids ) // Low grade fever x1 - resolved //now on comfort care, terminally extubated today, abx dc'ed. // Acute VDRF - intubated 06/09 // Thrombocytosis // Hyponatremia / electrolyte imbalance // Chronic diastolic CHF, possibly exacerbated - TTE: EF 60-65%, grade I diastolic dysfunction, mild MR, TR // Dementia // Bedbound // Dysphagia SP PEG // [facility] resident // PCN, sulfa allergies - tolerated cefepime // Full Code PLAN: -off IV vancomycin and cefepime today as on comfort care s/p terminal extubated after family mtg. Subjective Constitutional: Reports: no symptoms Allergies: Coded Allergies: CODEINE (Verified Allergy, Unknown, 04/13/17) LORAZEPAM (Verified Allergy, Unknown, 04/11/17) reaction unknown MEPERIDINE (Unverified Allergy, Unknown, 09/03/14) PENICILLINS (Verified Allergy, Unknown, 03/06/13) SULFA (SULFONAMIDE ANTIBIOTICS) (Verified Allergy, Unknown, 03/06/13) Objective Vital Signs Last 24 Hour Vital Signs Date Time Temp Pulse Resp B/P Pulse Ox O2 Delivery O2 Flow Rate FiO2 06/10/17 16:00 80 06/10/17 16:00 5.0 06/10/17 16:00 98.4 91 24 152/70 100 Nasal Cannula 5.0 06/10/17 15:00 83 26 153/88 100 Nasal Cannula 5.0 06/10/17 14:00 100 25 148/75 98 Nasal Cannula 5.0 06/10/17 13:25 Nasal Cannula 4.0 36 06/10/17 13:00 80 19 155/95 100 Mechanical Ventilator 30 06/10/17 12:59 82 18 100 Mechanical Ventilator 30 06/10/17 12:51 64 18 100 Mechanical Ventilator 30 06/10/17 12:51 30 06/10/17 12:48 63 18 30 06/10/17 12:00 30 06/10/17 12:00 98.6 72 18 133/85 100 Mechanical Ventilator 30 06/10/17 12:00 72 06/10/17 11:00 68 16 140/61 100 Mechanical Ventilator 30 06/10/17 10:58 81 18 30 06/10/17 10:00 76 19 169/122 100 Mechanical Ventilator 30 06/10/17 09:00 76 18 146/76 100 Mechanical Ventilator 30 06/10/17 08:53 77 24 30 06/10/17 08:00 72 06/10/17 08:00 99.3 77 23 132/82 100 Mechanical Ventilator 30 06/10/17 07:14 81 18 100 Mechanical Ventilator 30 06/10/17 07:12 30 06/10/17 07:04 30 06/10/17 07:04 76 18 100 Mechanical Ventilator 30 06/10/17 07:02 80 18 30 06/10/17 07:00 97.8 66 20 126/62 100 Mechanical Ventilator 30 06/10/17 06:00 67 20 128/85 100 Mechanical Ventilator 30 06/10/17 05:21 75 21 30 06/10/17 05:00 97.8 64 20 136/68 100 Mechanical Ventilator 30 06/10/17 04:00 97.5 62 20 135/72 100 Mechanical Ventilator 30 06/10/17 04:00 30 06/10/17 04:00 97.9 62 20 142/62 100 Mechanical Ventilator 30 06/10/17 04:00 73 06/10/17 03:27 88 18 30 06/10/17 03:00 79 22 121/54 100 Mechanical Ventilator 30 06/10/17 02:00 71 22 120/52 100 Mechanical Ventilator 30 06/10/17 01:15 78 18 100 Mechanical Ventilator 30 06/10/17 01:00 86 22 146/67 100 Mechanical Ventilator 30 06/10/17 00:58 74 21 100 Mechanical Ventilator 30 06/10/17 00:58 30 06/10/17 00:56 74 19 30 06/10/17 00:00 99.2 65 18 141/59 100 Mechanical Ventilator 30 06/10/17 00:00 30 06/10/17 00:00 73 06/09/17 23:00 80 17 115/95 100 Mechanical Ventilator 30 06/09/17 22:50 99 22 30 06/09/17 22:00 81 17 138/85 100 Mechanical Ventilator 30 06/09/17 21:11 99.2 06/09/17 21:10 77 18 30 06/09/17 21:00 81 17 119/86 100 Mechanical Ventilator 30 06/09/17 20:00 99.9 85 18 146/70 100 Mechanical Ventilator 30 06/09/17 20:00 93 06/09/17 20:00 30 06/09/17 19:20 89 19 100 Mechanical Ventilator 30 06/09/17 19:02 30 06/09/17 19:01 82 18 100 Mechanical Ventilator 30 06/09/17 19:00 88 16 132/72 100 Mechanical Ventilator 30 06/09/17 19:00 82 18 30 Height (Feet): 5 Height (Inches): 6.00 Weight (Pounds): 115 General Appearance: other - terminally extubated on comfort care Respiratory/Chest: decreased breath sounds Abdomen: soft, non tender Laboratory Tests Test 06/09/17 21:45 06/10/17 04:15 Vancomycin Level Trough 12.2 ug/mL (5.0-12.0) H White Blood Count 13.5 K/UL (4.8-10.8) H Red Blood Count 2.81 M/UL (4.20-5.40) L Hemoglobin 9.5 G/DL (12.0-16.0) L Hematocrit 28.0 % (37.0-47.0) L Mean Corpuscular Volume 100 FL (80-99) H Mean Corpuscular Hemoglobin 33.7 PG (27.0-31.0) H Mean Corpuscular Hemoglobin Concent 33.8 G/DL (32.0-36.0) Red Cell Distribution Width 13.8 % (11.6-14.8) Platelet Count 314 K/UL (150-450) Mean Platelet Volume 6.5 FL (6.5-10.1) Neutrophils (%) (Auto) 80.5 % (45.0-75.0) H Lymphocytes (%) (Auto) 11.8 % (20.0-45.0) L Monocytes (%) (Auto) 6.8 % (1.0-10.0) Eosinophils (%) (Auto) 0.0 % (0.0-3.0) Basophils (%) (Auto) 0.8 % (0.0-2.0) Sodium Level 137 mEQ/L (135-145) Potassium Level 2.9 mEQ/L (3.4-4.9) L Chloride Level 99 mEQ/L (98-107) Carbon Dioxide Level 25 mEQ/L (20-30) Anion Gap 13 (5-15) Blood Urea Nitrogen 28 mg/dL (7-23) H Creatinine 0.9 mg/dL (0.5-0.9) Estimat Glomerular Filtration Rate mL/min (>60) Glucose Level 143 mg/dL (74-106) H Uric Acid 4.6 mg/dL (3.0-7.5) Calcium Level 9.4 mg/dL (8.6-10.2) Phosphorus Level 1.5 mg/dL (2.5-4.8) L Magnesium Level 1.5 mg/dL (1.7-2.5) L Total Bilirubin 0.4 mg/dL (0.0-1.2) Aspartate Amino Transf (AST/SGOT) 36 U/L (5-40) Alanine Aminotransferase (ALT/SGPT) 14 U/L (3-33) Alkaline Phosphatase 54 U/L (35-104) C-Reactive Protein, Quantitative 0.3 mg/dL (< 0.5) Pro-B-Type Natriuretic Peptide 1206 pg/mL (0-450) H Total Protein 5.9 g/dL (6.6-8.7) L Albumin 3.2 g/dL (3.5-5.2) L Globulin 2.7 g/dL Albumin/Globulin Ratio 1.1 (1.0-2.7) Current Medications Medications (Trade) Dose Ordered Sig/Mikaela Route PRN Reason Start Time Stop Time Status Last Admin Dose Admin Acetaminophen (Tylenol) 650 mg Q4H PRN ORAL Mild Pain (Pain Scale 1-3) 06/10/17 19:30 07/10/17 19:29 UNV Acetaminophen (Tylenol) 650 mg Q4H PRN ORAL T>100.5 06/10/17 19:30 07/10/17 19:29 UNV Albuterol/ Ipratropium (DuoNeb 0.5-3(2.5)mg/3ml) 3 ml Q6HRT HHN 06/10/17 19:00 06/15/17 18:59 UNV Artificial Tears (Akwa-Tears) 1 drop QIDPRN PRN BOTH EYES Dry Eyes 06/11/17 13:00 07/11/17 12:59 UNV Glycopyrrolate (Robinul) 0.1 mg Q6H PRN IV excessive secretions 06/10/17 23:45 07/10/17 23:44 UNV Haloperidol Lactate (Haldol) 1 mg Q30M PRN IM Agitation 06/10/17 18:15 07/10/17 18:14 UNV Heparin Sodium (Porcine) (Heparin 5000 units/ml) 5,000 units EVERY 12 HOURS SUBQ 06/10/17 21:00 07/10/17 20:59 UNV Morphine Sulfate (Morphine Sulfate) 4 mg EVERY HOUR PRN IVP dyspnea and RR> 20 06/10/17 19:00 06/17/17 18:59 UNV Prochlorperazine (Compazine) 10 mg Q6H PRN ORAL Nausea & Vomiting 06/10/17 23:45 07/10/17 23:44 UNV Raymunod Milton M.D. Jun 10, 2017 18:37
--- NOTE | 2017-06-10 19:14 | Internal Med Progress Note ---
Subjective Date of Service: Jun 10, 2017 Physician Name Donte Charles Attending Physician Gino Cordova MD Current Medications Medications (Trade) Dose Ordered Sig/Mikaela Route PRN Reason Start Time Stop Time Status Last Admin Dose Admin Acetaminophen (Tylenol) 650 mg Q4H PRN ORAL Mild Pain (Pain Scale 1-3) 06/10/17 19:30 07/10/17 19:29 Acetaminophen (Tylenol) 650 mg Q4H PRN ORAL T>100.5 06/10/17 19:30 07/10/17 19:29 Albuterol/ Ipratropium (DuoNeb 0.5-3(2.5)mg/3ml) 3 ml Q6HRT HHN 06/10/17 19:00 06/15/17 18:59 Artificial Tears (Akwa-Tears) 1 drop QIDPRN PRN BOTH EYES Dry Eyes 06/11/17 13:00 07/11/17 12:59 Glycopyrrolate (Robinul) 0.1 mg Q6H PRN IV excessive secretions 06/10/17 23:45 07/10/17 23:44 Haloperidol Lactate (Haldol) 1 mg Q30M PRN IM Agitation 06/10/17 18:15 07/10/17 18:14 Heparin Sodium (Porcine) (Heparin 5000 units/ml) 5,000 units EVERY 12 HOURS SUBQ 06/10/17 21:00 07/10/17 20:59 Morphine Sulfate (Morphine Sulfate) 4 mg EVERY HOUR PRN IVP dyspnea and RR> 20 06/10/17 19:00 06/17/17 18:59 Prochlorperazine (Compazine) 10 mg Q6H PRN ORAL Nausea & Vomiting 06/10/17 23:45 07/10/17 23:44 Allergies: Coded Allergies: CODEINE (Verified Allergy, Unknown, 04/13/17) LORAZEPAM (Verified Allergy, Unknown, 04/11/17) reaction unknown MEPERIDINE (Unverified Allergy, Unknown, 09/03/14) PENICILLINS (Verified Allergy, Unknown, 03/06/13) SULFA (SULFONAMIDE ANTIBIOTICS) (Verified Allergy, Unknown, 03/06/13) ROS Limited/Unobtainable: Yes Subjective 86 YO F admitted with respiratory distress. Terminally extubated earlier today. See social work note concerning comfort care. Cover for Int Med-Dr Cordova. Objective Last Vital Signs Date Time Temp Pulse Resp B/P Pulse Ox O2 Delivery O2 Flow Rate FiO2 06/10/17 16:00 80 06/10/17 16:00 5.0 06/10/17 16:00 98.4 24 152/70 100 Nasal Cannula 06/10/17 13:25 36 Laboratory Tests Test 06/09/17 21:45 06/10/17 04:15 Vancomycin Level Trough 12.2 ug/mL (5.0-12.0) H White Blood Count 13.5 K/UL (4.8-10.8) H Red Blood Count 2.81 M/UL (4.20-5.40) L Hemoglobin 9.5 G/DL (12.0-16.0) L Hematocrit 28.0 % (37.0-47.0) L Mean Corpuscular Volume 100 FL (80-99) H Mean Corpuscular Hemoglobin 33.7 PG (27.0-31.0) H Mean Corpuscular Hemoglobin Concent 33.8 G/DL (32.0-36.0) Red Cell Distribution Width 13.8 % (11.6-14.8) Platelet Count 314 K/UL (150-450) Mean Platelet Volume 6.5 FL (6.5-10.1) Neutrophils (%) (Auto) 80.5 % (45.0-75.0) H Lymphocytes (%) (Auto) 11.8 % (20.0-45.0) L Monocytes (%) (Auto) 6.8 % (1.0-10.0) Eosinophils (%) (Auto) 0.0 % (0.0-3.0) Basophils (%) (Auto) 0.8 % (0.0-2.0) Sodium Level 137 mEQ/L (135-145) Potassium Level 2.9 mEQ/L (3.4-4.9) L Chloride Level 99 mEQ/L (98-107) Carbon Dioxide Level 25 mEQ/L (20-30) Anion Gap 13 (5-15) Blood Urea Nitrogen 28 mg/dL (7-23) H Creatinine 0.9 mg/dL (0.5-0.9) Estimat Glomerular Filtration Rate mL/min (>60) Glucose Level 143 mg/dL (74-106) H Uric Acid 4.6 mg/dL (3.0-7.5) Calcium Level 9.4 mg/dL (8.6-10.2) Phosphorus Level 1.5 mg/dL (2.5-4.8) L Magnesium Level 1.5 mg/dL (1.7-2.5) L Total Bilirubin 0.4 mg/dL (0.0-1.2) Aspartate Amino Transf (AST/SGOT) 36 U/L (5-40) Alanine Aminotransferase (ALT/SGPT) 14 U/L (3-33) Alkaline Phosphatase 54 U/L (35-104) C-Reactive Protein, Quantitative 0.3 mg/dL (< 0.5) Pro-B-Type Natriuretic Peptide 1206 pg/mL (0-450) H Total Protein 5.9 g/dL (6.6-8.7) L Albumin 3.2 g/dL (3.5-5.2) L Globulin 2.7 g/dL Albumin/Globulin Ratio 1.1 (1.0-2.7) Intake and Output 06/09/17 06/10/17 19:00 07:00 Intake Total 3460 ml 1060 ml Output Total 195 ml 210 ml Balance 3265 ml 850 ml Intake Free Water 100 ml IV Total 3360 ml 600 ml Tube Feeding 40 ml 360 ml Other 60 ml Output Urine Total 195 ml 210 ml Objective General Appearance: lethargic, thin EENT: PERRL/EOMI, normal ENT inspection Neck: non-tender, normal alignment, supple Cardiovascular: normal peripheral pulses, normal rate, regular rhythm, no gallop/murmur, no JVD Respiratory/Chest: Nasal canula; respiratory distress, accessory muscle use, crackles/rales, rhonchi - bilaterally, expiratory wheezing Abdomen: normal bowel sounds, non tender, soft, no organomegaly Neurologic: tag and label cutter II-XII grossly normal Skin: normal pigmentation, warm/dry Assessment/Plan Problem List: (1) Parkinson disease Assessment & Plan: Cont sinimet (2) Cerebral vascular disease (3) Acute respiratory failure Assessment & Plan: Continue Nasal canula per pulmonary. (4) COPD (chronic obstructive pulmonary disease) Assessment & Plan: Acute exacerbation. D/C IV solumedrol and albuterol nebs. D/C cefepime and vanco (5) HTN (hypertension) Assessment & Plan: Hypotension (6) Hypothyroidism (7) Alzheimer's dementia (8) Dysphagia Assessment & Plan: S/P PEG (9) Feeding by G-tube Status: deteriorating Assessment/Plan Continue comfort care per family request. DONTE CHARLES Jun 10, 2017 19:14
[2017-06-10] MEDS ORDERED: Heparin 5000 units/ml inj SUBQ SCH (21:00)
[2017-06-11] MEDS: Morphine Sulfate 4mg/ml Inj IVP PRN ×4 (00:52→17:16)
[2017-06-11] MEDS: DuoNeb 0.5-3(2.5)mg/3ml neb HHN SCH ×4 (01:29→19:24)
[2017-06-11 03:55] VITALS: BP 156/74
--- NOTE | 2017-06-11 07:41 | Pulmonology Progress Note ---
Assessment/Plan Assessment/Plan ASSESSMENT acute hypercapnic respiratory failure requiring intubation s/p terminal extubation sepsis aspiration PNA with Staph aureus probable UTI acute on chronic (Alzheimer dementia) encephalopathy COPD malfunctioning G tube(pulled out) dysphagia, DM chronic diastolic dysfunction Parkinson disease sever protein calorie malnutrition Hx of HTN left sacral decub st 3 POA Alzheimer dementia PLAN OF CARE [facility] floor initially intubated, was in ICU unable to be weaned after discussion with family, family decided on terminal extubation and no artificial means of nutrition s/p terminal extubation code status changed to DNR/DNI with comfort measures supplemental O2 to keep sat above 92% pulmonary toilet prn sputum cx + Staph aureus, urine cx -negative, blood cx preliminary negative s/p abx as per ID ECHO with EF 60-65% and RVSP of 34 GI follows G tube was pulled out family did not want another G tube initially NGT PPI dc all with comfort care acute encephalopathy likely due to sepsis on chronic Alzheimer dementia electrolytes replaced as per nephro renal parameters were clsoely monitored nephrotoxic were avoided Sinemet was continued BS was managed with SS of insulin, VmM0y-9.5 BP monitoring , was on ARB, stopped, DVT prophylaxis Bowel regimen currently comfort measures only supplemental oxygen pain management, Robinul, Haldol prn bowel regimen skin care dc plan case discussed and evaluated by supervising physician Subjective Allergies: Coded Allergies: CODEINE (Verified Allergy, Unknown, 04/13/17) LORAZEPAM (Verified Allergy, Unknown, 04/11/17) reaction unknown MEPERIDINE (Unverified Allergy, Unknown, 09/03/14) PENICILLINS (Verified Allergy, Unknown, 03/06/13) SULFA (SULFONAMIDE ANTIBIOTICS) (Verified Allergy, Unknown, 03/06/13) Subjective s/p terminal extubation on [facility] floor on O2 via NC, Objective Last 24 Hour Vital Signs Date Time Temp Pulse Resp B/P Pulse Ox O2 Delivery O2 Flow Rate FiO2 06/11/17 03:55 97.7 78 22 156/74 100 Nasal Cannula 5.0 06/11/17 01:40 80 24 97 Nasal Cannula 4.0 36 06/11/17 01:30 78 25 98 Nasal Cannula 4.0 36 06/11/17 01:30 36 06/11/17 00:00 98.1 78 20 98 Nasal Cannula 5.0 06/10/17 20:55 Nasal Cannula 4.0 36 06/10/17 20:55 99 Nasal Cannula 4.0 36 06/10/17 20:00 36 06/10/17 20:00 97.7 78 22 143/75 100 Nasal Cannula 5.0 06/10/17 20:00 78 22 99 Nasal Cannula 4.0 36 06/10/17 20:00 Nasal Cannula 06/10/17 16:00 80 06/10/17 16:00 5.0 06/10/17 16:00 98.4 91 24 152/70 100 Nasal Cannula 5.0 06/10/17 15:00 83 26 153/88 100 Nasal Cannula 5.0 06/10/17 14:00 100 25 148/75 98 Nasal Cannula 5.0 06/10/17 13:25 Nasal Cannula 4.0 36 06/10/17 13:00 80 19 155/95 100 Mechanical Ventilator 30 06/10/17 12:59 82 18 100 Mechanical Ventilator 30 06/10/17 12:51 64 18 100 Mechanical Ventilator 30 06/10/17 12:51 30 06/10/17 12:48 63 18 30 06/10/17 12:00 30 06/10/17 12:00 98.6 72 18 133/85 100 Mechanical Ventilator 30 06/10/17 12:00 72 06/10/17 11:00 68 16 140/61 100 Mechanical Ventilator 30 06/10/17 10:58 81 18 30 06/10/17 10:00 76 19 169/122 100 Mechanical Ventilator 30 06/10/17 09:00 76 18 146/76 100 Mechanical Ventilator 30 06/10/17 08:53 77 24 30 06/10/17 08:00 72 06/10/17 08:00 99.3 77 23 132/82 100 Mechanical Ventilator 30 Intake and Output 06/10/17 06/11/17 19:00 07:00 Intake Total 1140 ml Output Total 250 ml 350 ml Balance 890 ml -350 ml Intake Free Water 100 ml IV Total 685 ml Tube Feeding 280 ml Other 75 ml Output Urine Total 250 ml 350 ml General Appearance: other - lethargic AA bedridden elderly female HEENT: normocephalic, atraumatic, anicteric Respiratory/Chest: lungs clear - with moderate air entry , no respiratory distress Cardiovascular: normal rate, regular rhythm, no JVD Abdomen: normal bowel sounds, soft, non tender Genitourinary: normal external genitalia Extremities: no edema Neurologic/Psychiatric: abnormal gait - bedridden, other - lethargic Musculoskeletal: atrophy - BLE Current Medications Medications (Trade) Dose Ordered Sig/Mikaela Route PRN Reason Start Time Stop Time Status Last Admin Dose Admin Acetaminophen (Tylenol) 650 mg Q4H PRN ORAL Mild Pain (Pain Scale 1-3) 06/10/17 19:30 07/10/17 19:29 Acetaminophen (Tylenol) 650 mg Q4H PRN ORAL T>100.5 06/10/17 19:30 07/10/17 19:29 Albuterol/ Ipratropium (DuoNeb 0.5-3(2.5)mg/3ml) 3 ml Q6HRT HHN 06/10/17 19:00 06/15/17 18:59 06/11/17 01:29 Artificial Tears (Akwa-Tears) 1 drop QIDPRN PRN BOTH EYES Dry Eyes 06/11/17 13:00 07/11/17 12:59 Glycopyrrolate (Robinul) 0.1 mg Q6H PRN IV excessive secretions 06/10/17 23:45 07/10/17 23:44 Haloperidol Lactate (Haldol) 1 mg Q30M PRN IM Agitation 06/10/17 18:15 07/10/17 18:14 Morphine Sulfate (Morphine Sulfate) 4 mg EVERY HOUR PRN IVP dyspnea and RR> 20 06/10/17 19:00 06/17/17 18:59 06/11/17 00:52 Prochlorperazine (Compazine) 10 mg Q6H PRN ORAL Nausea & Vomiting 06/10/17 23:45 07/10/17 23:44 Ruth Wood NP (Vanchtein) Jun 11, 2017 07:41
[2017-06-11 08:00] VITALS: BP 164/79
--- NOTE | 2017-06-11 10:52 | GI Progress Note ---
Assessment/Plan Problems: (1) Encounter for PEG (percutaneous endoscopic gastrostomy) ICD Codes: Z43.1 - Encounter for attention to gastrostomy SNOMED: 089323693, 311904870 (2) Malfunction of gastrostomy tube ICD Codes: K94.23 - Gastrostomy malfunction SNOMED: 295222182 (3) Malfunction of percutaneous endoscopic gastrostomy (PEG) tube ICD Codes: K94.23 - Gastrostomy malfunction SNOMED: 576700820 (4) Severe malnutrition ICD Codes: E43 - Unspecified severe protein-calorie malnutrition SNOMED: 92593397 (5) Alzheimer's dementia ICD Codes: G30.9 - Alzheimer's disease, unspecified SNOMED: 43093722 (6) Anemia ICD Codes: D64.9 - Anemia, unspecified SNOMED: 779099767 Status: unchanged Status Narrative Discussed with Dr. Blackburn. Assessment/Plan terminal extubation, comfort care. Subjective Subjective limited Objective Last 24 Hour Vital Signs Date Time Temp Pulse Resp B/P Pulse Ox O2 Delivery O2 Flow Rate FiO2 06/11/17 08:00 97.9 74 20 164/79 100 Nasal Cannula 5.0 06/11/17 07:25 76 22 100 Nasal Cannula 5.0 40 06/11/17 07:20 100 Nasal Cannula 5.0 40 06/11/17 07:20 Nasal Cannula 5.0 40 06/11/17 07:20 74 22 100 Nasal Cannula 5.0 40 06/11/17 07:20 40 06/11/17 03:55 97.7 78 22 156/74 100 Nasal Cannula 5.0 06/11/17 01:40 80 24 97 Nasal Cannula 4.0 36 06/11/17 01:30 78 25 98 Nasal Cannula 4.0 36 06/11/17 01:30 36 06/11/17 00:00 98.1 78 20 98 Nasal Cannula 5.0 06/10/17 20:55 Nasal Cannula 4.0 36 06/10/17 20:55 99 Nasal Cannula 4.0 36 06/10/17 20:00 36 06/10/17 20:00 97.7 78 22 143/75 100 Nasal Cannula 5.0 06/10/17 20:00 78 22 99 Nasal Cannula 4.0 36 06/10/17 20:00 Nasal Cannula 06/10/17 16:00 80 06/10/17 16:00 5.0 06/10/17 16:00 98.4 91 24 152/70 100 Nasal Cannula 5.0 06/10/17 15:00 83 26 153/88 100 Nasal Cannula 5.0 06/10/17 14:00 100 25 148/75 98 Nasal Cannula 5.0 06/10/17 13:25 Nasal Cannula 4.0 36 06/10/17 13:00 80 19 155/95 100 Mechanical Ventilator 06/10/17 12:59 82 18 100 Mechanical Ventilator 06/10/17 12:51 64 18 100 Mechanical Ventilator 30 06/10/17 12:51 30 06/10/17 12:48 63 18 30 06/10/17 12:00 30 06/10/17 12:00 98.6 72 18 133/85 100 Mechanical Ventilator 30 06/10/17 12:00 72 06/10/17 11:00 68 16 140/61 100 Mechanical Ventilator 06/10/17 10:58 81 18 30 Intake and Output 06/10/17 06/11/17 19:00 07:00 Intake Total 1140 ml Output Total 250 ml 350 ml Balance 890 ml -350 ml Intake Free Water 100 ml IV Total 685 ml Tube Feeding 280 ml Other 75 ml Output Urine Total 250 ml 350 ml Height (Feet): 5 Height (Inches): 6.00 Weight (Pounds): 115 General Appearance: no apparent distress, lethargic, thin Cardiovascular: normal rate Respiratory/Chest: normal breath sounds, no respiratory distress, other - 2LNC Abdominal Exam: soft Ashley Palma N.P. Jun 11, 2017 10:52
--- NOTE | 2017-06-11 11:48 | General Progress Note ---
Assessment/Plan Status: deteriorating Status Narrative terminally extubated Assessment/Plan status: 1) Aspiration pneumonia, and acute respiratory failure requiring intubation and mechanical vent (2) UTI (urinary tract infection) (3) COPD (chronic obstructive pulmonary disease) (4) Feeding by G-tube (5) Severe malnutrition (6) Parkinsons disease (7) HypoThyroidism (8) C dif (9) Low na , h/o SIADH Plan; comfort care- will see PRN Subjective ROS Limited/Unobtainable: Yes Allergies: Coded Allergies: CODEINE (Verified Allergy, Unknown, 04/13/17) LORAZEPAM (Verified Allergy, Unknown, 04/11/17) reaction unknown MEPERIDINE (Unverified Allergy, Unknown, 09/03/14) PENICILLINS (Verified Allergy, Unknown, 03/06/13) SULFA (SULFONAMIDE ANTIBIOTICS) (Verified Allergy, Unknown, 03/06/13) Objective Last 24 Hour Vital Signs Date Time Temp Pulse Resp B/P Pulse Ox O2 Delivery O2 Flow Rate FiO2 06/11/17 08:00 97.9 74 20 164/79 100 Nasal Cannula 5.0 06/11/17 07:25 76 22 100 Nasal Cannula 5.0 40 06/11/17 07:20 100 Nasal Cannula 5.0 40 06/11/17 07:20 Nasal Cannula 5.0 40 06/11/17 07:20 74 22 100 Nasal Cannula 5.0 40 06/11/17 07:20 40 06/11/17 03:55 97.7 78 22 156/74 100 Nasal Cannula 5.0 06/11/17 01:40 80 24 97 Nasal Cannula 4.0 36 06/11/17 01:30 78 25 98 Nasal Cannula 4.0 36 06/11/17 01:30 36 06/11/17 00:00 98.1 78 20 98 Nasal Cannula 5.0 06/10/17 20:55 Nasal Cannula 4.0 36 06/10/17 20:55 99 Nasal Cannula 4.0 36 06/10/17 20:00 36 06/10/17 20:00 97.7 78 22 143/75 100 Nasal Cannula 5.0 06/10/17 20:00 78 22 99 Nasal Cannula 4.0 36 06/10/17 20:00 Nasal Cannula 06/10/17 16:00 80 06/10/17 16:00 5.0 06/10/17 16:00 98.4 91 24 152/70 100 Nasal Cannula 5.0 06/10/17 15:00 83 26 153/88 100 Nasal Cannula 5.0 06/10/17 14:00 100 25 148/75 98 Nasal Cannula 5.0 06/10/17 13:25 Nasal Cannula 4.0 36 06/10/17 13:00 80 19 155/95 100 Mechanical Ventilator 30 06/10/17 12:59 82 18 100 Mechanical Ventilator 30 06/10/17 12:51 64 18 100 Mechanical Ventilator 30 06/10/17 12:51 30 06/10/17 12:48 63 18 30 06/10/17 12:00 30 06/10/17 12:00 98.6 72 18 133/85 100 Mechanical Ventilator 30 06/10/17 12:00 72 Intake and Output 06/10/17 06/11/17 19:00 07:00 Intake Total 1140 ml Output Total 250 ml 350 ml Balance 890 ml -350 ml Intake Free Water 100 ml IV Total 685 ml Tube Feeding 280 ml Other 75 ml Output Urine Total 250 ml 350 ml Height (Feet): 5 Height (Inches): 6.00 Weight (Pounds): 115 General Appearance: mild distress Cardiovascular: normal rate Respiratory/Chest: decreased breath sounds Abdomen: distended Objective other PE not changed JANUARY KEY Jun 11, 2017 11:48
[2017-06-11 12:00] VITALS: BP 164/84
[2017-06-11] MEDS ORDERED: Artificial Tears 1.4% Op Soln BOTH EYES PRN (13:00)
[2017-06-11] MEDS ORDERED: NS 275ml ONE (15:39)
[2017-06-11] MEDS ORDERED: Tubing Blood Filter IV ONE (15:39)
[2017-06-11] MEDS ORDERED: D5NS 1000ml IV ONE (15:39)
[2017-06-11 16:00] VITALS: BP 160/78
--- NOTE | 2017-06-11 17:09 | Cardiac Electrophysiology PN ---
Assessment/Plan Assessment/Plan 1. Hypertension. Off meds as now she is comfort care 2. Respiratory failure. Terminally extubated 3. Dysphagia status post G-tube placement.She pulled out PEG. 4. Sepsis 5. Dementia. 6. Abnormal electrocardiogram with anterior ischemia on the EKG. Echocardiogram EF 65% 7. Comfort care. DW RN and daughter. WIll sign off Subjective Subjective Terminally extubated yesterday and transferred to [facility]. Family at bedside. Has spontaneous breathing.Gets intermittent morphine Objective Last 24 Hour Vital Signs Date Time Temp Pulse Resp B/P Pulse Ox O2 Delivery O2 Flow Rate FiO2 06/11/17 16:00 98.2 85 20 160/78 92 Nasal Cannula 5.0 06/11/17 13:00 94 24 100 Nasal Cannula 5.0 40 06/11/17 12:55 40 06/11/17 12:55 92 22 100 Nasal Cannula 5.0 40 06/11/17 12:00 97.9 68 22 164/84 93 Nasal Cannula 5.0 06/11/17 08:00 97.9 74 20 164/79 100 Nasal Cannula 5.0 06/11/17 07:25 76 22 100 Nasal Cannula 5.0 40 06/11/17 07:20 100 Nasal Cannula 5.0 40 06/11/17 07:20 Nasal Cannula 5.0 40 06/11/17 07:20 74 22 100 Nasal Cannula 5.0 40 06/11/17 07:20 40 06/11/17 03:55 97.7 78 22 156/74 100 Nasal Cannula 5.0 06/11/17 01:40 80 24 97 Nasal Cannula 4.0 36 06/11/17 01:30 78 25 98 Nasal Cannula 4.0 36 06/11/17 01:30 36 06/11/17 00:00 98.1 78 20 98 Nasal Cannula 5.0 06/10/17 20:55 Nasal Cannula 4.0 36 06/10/17 20:55 99 Nasal Cannula 4.0 36 06/10/17 20:00 36 06/10/17 20:00 97.7 78 22 143/75 100 Nasal Cannula 5.0 06/10/17 20:00 78 22 99 Nasal Cannula 4.0 36 06/10/17 20:00 Nasal Cannula Intake and Output 06/10/17 06/11/17 19:00 07:00 Intake Total 1140 ml Output Total 250 ml 350 ml Balance 890 ml -350 ml Intake Free Water 100 ml IV Total 685 ml Tube Feeding 280 ml Other 75 ml Output Urine Total 250 ml 350 ml Objective HEAD AND NECK: No JVD. LUNGS: Coarse rhonchi CARDIOVASCULAR: Shows regular S1 and S2 with no gallop or murmur. ABDOMEN: G-tube site covered. EXTREMITIES: 1+ pitting edema. TAY MONTELONGO Jun 11, 2017 17:09
[2017-06-11] MEDS ORDERED: ARTIFICIAL TEAR15 ML BOTH EYES (17:15)
[2017-06-11] MEDS ORDERED: ACETAMINOPHEN325 M1 ORAL (17:15)
[2017-06-11] MEDS ORDERED: HALDOL5 MG/1 ML IM (17:16)
[2017-06-11] MEDS ORDERED: DUONEB 0.5-3(2.53 ML HHN (17:17)
[2017-06-11] MEDS ORDERED: COMPAZINE10 MG ORAL (17:21)
[2017-06-11] MEDS ORDERED: MORPHINE S10 MG/5 ML ORAL (17:22)
--- NOTE | 2017-06-11 17:23 | Infectious Diseases Prog Note ---
Assessment/Plan Assessment/Plan ASSESSMENT: 86 y/o female with: // Possible MRSA HCAP with CHF exacerbation - SCx MRSA - CXR 06/07: bilateral perihilar infiltrates may be congestive or inflammatory // Probable UTI - UCx NGTD // Acute leukocytosis - decreased slightly from yesterday ( SP steroids ) // Low grade fever x1 - resolved //now on comfort care, terminally extubated yesterday, abx dc'ed. // Acute VDRF - intubated 06/09 // Thrombocytosis // Hyponatremia / electrolyte imbalance // Chronic diastolic CHF, possibly exacerbated - TTE: EF 60-65%, grade I diastolic dysfunction, mild MR, TR // Dementia // Bedbound // Dysphagia SP PEG // [facility] resident // PCN, sulfa allergies - tolerated cefepime // Full Code PLAN: -off IV vancomycin and cefepime 06/10/17 as on comfort care s/p terminal extubated after family mtg. Subjective ROS Limited/Unobtainable: Yes Allergies: Coded Allergies: CODEINE (Verified Allergy, Unknown, 04/13/17) LORAZEPAM (Verified Allergy, Unknown, 04/11/17) reaction unknown MEPERIDINE (Unverified Allergy, Unknown, 09/03/14) PENICILLINS (Verified Allergy, Unknown, 03/06/13) SULFA (SULFONAMIDE ANTIBIOTICS) (Verified Allergy, Unknown, 03/06/13) Objective Vital Signs Last 24 Hour Vital Signs Date Time Temp Pulse Resp B/P Pulse Ox O2 Delivery O2 Flow Rate FiO2 06/11/17 16:00 98.2 85 20 160/78 92 Nasal Cannula 5.0 06/11/17 13:00 94 24 100 Nasal Cannula 5.0 40 06/11/17 12:55 40 06/11/17 12:55 92 22 100 Nasal Cannula 5.0 40 06/11/17 12:00 97.9 68 22 164/84 93 Nasal Cannula 5.0 06/11/17 08:00 97.9 74 20 164/79 100 Nasal Cannula 5.0 06/11/17 07:25 76 22 100 Nasal Cannula 5.0 40 06/11/17 07:20 100 Nasal Cannula 5.0 40 06/11/17 07:20 Nasal Cannula 5.0 40 06/11/17 07:20 74 22 100 Nasal Cannula 5.0 40 06/11/17 07:20 40 06/11/17 03:55 97.7 78 22 156/74 100 Nasal Cannula 5.0 06/11/17 01:40 80 24 97 Nasal Cannula 4.0 36 06/11/17 01:30 78 25 98 Nasal Cannula 4.0 36 06/11/17 01:30 36 06/11/17 00:00 98.1 78 20 98 Nasal Cannula 5.0 06/10/17 20:55 Nasal Cannula 4.0 36 06/10/17 20:55 99 Nasal Cannula 4.0 36 06/10/17 20:00 36 06/10/17 20:00 97.7 78 22 143/75 100 Nasal Cannula 5.0 06/10/17 20:00 78 22 99 Nasal Cannula 4.0 36 06/10/17 20:00 Nasal Cannula Height (Feet): 5 Height (Inches): 6.00 Weight (Pounds): 115 Objective General Appearance: no apparent distress, lethargic, thin Cardiovascular: normal rate Respiratory/Chest: normal breath sounds, no respiratory distress, other - 2LNC Abdominal Exam: soft Current Medications Medications (Trade) Dose Ordered Sig/Mikaela Route PRN Reason Start Time Stop Time Status Last Admin Dose Admin Acetaminophen (Tylenol) 650 mg Q4H PRN ORAL Mild Pain (Pain Scale 1-3) 06/10/17 19:30 07/10/17 19:29 Acetaminophen (Tylenol) 650 mg Q4H PRN ORAL T>100.5 06/10/17 19:30 07/10/17 19:29 Albuterol/ Ipratropium (DuoNeb 0.5-3(2.5)mg/3ml) 3 ml Q6HRT HHN 06/10/17 19:00 06/15/17 18:59 06/11/17 13:08 Artificial Tears (Akwa-Tears) 1 drop QIDPRN PRN BOTH EYES Dry Eyes 06/11/17 13:00 07/11/17 12:59 Glycopyrrolate (Robinul) 0.1 mg Q6H PRN IV excessive secretions 06/10/17 23:45 07/10/17 23:44 Haloperidol Lactate (Haldol) 1 mg Q30M PRN IM Agitation 06/10/17 18:15 07/10/17 18:14 Morphine Sulfate (Morphine Sulfate) 4 mg EVERY HOUR PRN IVP dyspnea and RR> 20 06/10/17 19:00 06/17/17 18:59 06/11/17 17:16 Prochlorperazine (Compazine) 10 mg Q6H PRN ORAL Nausea & Vomiting 06/10/17 23:45 07/10/17 23:44 Raymundo Milton M.D. Jun 11, 2017 17:23
--- NOTE | 2017-06-11 18:28 | Internal Med Progress Note ---
Subjective Date of Service: Jun 11, 2017 Physician Name Donte Charles Attending Physician Gino Cordova MD Current Medications Medications (Trade) Dose Ordered Sig/Mikaela Route PRN Reason Start Time Stop Time Status Last Admin Dose Admin Acetaminophen (Tylenol) 650 mg Q4H PRN ORAL Mild Pain (Pain Scale 1-3) 06/10/17 19:30 07/10/17 19:29 Acetaminophen (Tylenol) 650 mg Q4H PRN ORAL T>100.5 06/10/17 19:30 07/10/17 19:29 Albuterol/ Ipratropium (DuoNeb 0.5-3(2.5)mg/3ml) 3 ml Q6HRT HHN 06/10/17 19:00 06/15/17 18:59 06/11/17 13:08 Artificial Tears (Akwa-Tears) 1 drop QIDPRN PRN BOTH EYES Dry Eyes 06/11/17 13:00 07/11/17 12:59 Glycopyrrolate (Robinul) 0.1 mg Q6H PRN IV excessive secretions 06/10/17 23:45 07/10/17 23:44 Haloperidol Lactate (Haldol) 1 mg Q30M PRN IM Agitation 06/10/17 18:15 07/10/17 18:14 Morphine Sulfate (Morphine Sulfate) 4 mg EVERY HOUR PRN IVP dyspnea and RR> 20 06/10/17 19:00 06/17/17 18:59 06/11/17 17:16 Prochlorperazine (Compazine) 10 mg Q6H PRN ORAL Nausea & Vomiting 06/10/17 23:45 07/10/17 23:44 Allergies: Coded Allergies: CODEINE (Verified Allergy, Unknown, 04/13/17) LORAZEPAM (Verified Allergy, Unknown, 04/11/17) reaction unknown MEPERIDINE (Unverified Allergy, Unknown, 09/03/14) PENICILLINS (Verified Allergy, Unknown, 03/06/13) SULFA (SULFONAMIDE ANTIBIOTICS) (Verified Allergy, Unknown, 03/06/13) ROS Limited/Unobtainable: No Subjective 86 YO F admitted with respiratory distress. Terminally extubated 06/10/17. See social work note concerning comfort care. Cover for Int Med-Dr Cordova. Objective Last Vital Signs Date Time Temp Pulse Resp B/P Pulse Ox O2 Delivery O2 Flow Rate FiO2 06/11/17 16:00 98.2 85 20 160/78 92 Nasal Cannula 5.0 06/11/17 13:00 40 Intake and Output 06/10/17 06/11/17 19:00 07:00 Intake Total 1140 ml Output Total 250 ml 350 ml Balance 890 ml -350 ml Intake Free Water 100 ml IV Total 685 ml Tube Feeding 280 ml Other 75 ml Output Urine Total 250 ml 350 ml Objective General Appearance: lethargic, thin EENT: PERRL/EOMI, normal ENT inspection Neck: non-tender, normal alignment, supple Cardiovascular: normal peripheral pulses, normal rate, regular rhythm, no gallop/murmur, no JVD Respiratory/Chest: Nasal canula; respiratory distress, accessory muscle use, crackles/rales, rhonchi - bilaterally, expiratory wheezing Abdomen: normal bowel sounds, non tender, soft, no organomegaly 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 (4) COPD (chronic obstructive pulmonary disease) Assessment & Plan: Acute exacerbation. D/C IV solumedrol and albuterol nebs. D/C cefepime and vanco (5) HTN (hypertension) Assessment & Plan: Hypotension (6) Hypothyroidism (7) Alzheimer's dementia (8) Dysphagia Assessment & Plan: S/P PEG (9) Feeding by G-tube Assessment/Plan Continue comfort care per family request. DONTE CHARLES Jun 11, 2017 18:28
[2017-06-11 20:00] VITALS: BP 161/88
[2017-06-11] MEDS ORDERED: Tubing IV Secondary IV ONE (20:49)
--- NOTE | 2017-06-14 09:35 | Discharge Summary ---
Discharge Summary Hospital Course Date of Admission Jun 06, 2017 at 23:33 Date of Discharge Jun 11, 2017 at 20:50 Admitting Diagnosis sepsis HPI Anju Argueta is a 86 year old female who was admitted on Jun 06, 2017 at 23: 33 for Sepsis Hospital Course dc summary #[id number] Discharge Medications Continued Medications: Acetaminophen* (Acetaminophen 325MG Tablet*) 325 Mg Tablet 650 MG ORAL Q4H PRN for Fever/Headache/Mild Pain, TAB Dextran 70/Hypromellose (Artificial Tears Eye Drops*) 15 Ml Drops 1 DROP BOTH EYES QID PRN for Dry Eyes, #15 ML 0 Refills Haloperidol Lactate (Haldol) 5 Mg/1 Ml Ampul 1 MG IM Q30MIN PRN for Agitation, AMP Ipratropium/Albuterol Sulfate (DuoNeb 0.5-3(2.5)mg/3ml) 3 Ml Ampul.neb 3 ML HHN Q6HR PRN for Shortness of Breath, EA Morphine Sulfate* (Morphine Sulfate*) 10 Mg/5 Ml Solution 4 MG ORAL Q1HR PRN for Severe Pain (Pain Scale 7-10), ML 0 Refills Prochlorperazine (Compazine*) 10 Mg Tablet 10 MG ORAL Q6H PRN for Nausea & Vomiting, TAB Discharge Condition Upon Discharge: other - poor Discharge Disposition Patient was discharged to SNF/Subacute Facility(03) with comfort measures, DNR/ DNI status Discharge Diagnoses: Israel (Darcie)Ruth NP Jun 14, 2017 09:35
--- NOTE | 2017-06-15 07:15 | Discharge Summary 2 SIG ---
DATE OF ADMISSION: 06/06/2017 DATE OF DISCHARGE: 06/11/2017 REASON FOR ADMISSION: This is an 86-year-old female with multiple medical problems including dysphagia, G-tube, cachexia, end-stage dementia, bedbound, history of CVA, shelter resident presented with complaint of congestion and respiratory distress for one day. In the emergency department, the patient was diagnosed with pneumonia and UTI and admitted for further management. ADMITTING DIAGNOSES: 1. Aspiration pneumonia. 2. Urinary tract infection. 3. Dysphagia. 4. Gastrostomy tube. 5. Severe malnutrition. 6. Chronic obstructive pulmonary disease. 7. Parkinson disease. HOSPITAL STAY: The patient was admitted. Cardiology, Pulmonology, ID consult, and Nephrology consult were requested. The patient initially deteriorated and required emergency oral intubation, was transferred to ICU, status post intubation on 06/09/2017. ICU care provided. Ventilator support provided. Pulmonary toilet provided as needed. The patient was followed up with daily chest x-ray and ABG. The patient developed leukocytosis on the second day of admission which is up to 17.1 on the day of intubation. Sputum culture revealed Staph aureus. Urine cultures were negative. Blood culture were negative. The patient was followed up with echocardiogram, which revealed ejection fraction of 60% to 65% and right ventricular systolic pressure of 34, and evidence of diastolic dysfunction. Chest x-ray with evidence of pneumonia. ProBNP was trending down. All consultants are closely followed. The patient was initially on the NG tube. The patient had a prior G-tube, but it was pulled out and family declined another G-tube placement. Gastrointestinal specialist followed. The patient as mentioned above was on NG tube feeding. PPI provided. The patient with evidence of acute altered mental status likely due to sepsis, superimposed on chronic Alzheimer disease. Electrolytes were monitored and replaced as needed per fire control system installer. Renal parameters were closely monitored. Nephrotoxics were avoided. Sinemet was continued. Blood sugar was managed with sliding scale of insulin. Hemoglobin A1c at goal 6.5. Blood pressure was monitored. The patient was on ARB, which was stopped. DVT prophylaxis provided. Bowel regimen provided. Family decided on comfort care. The patient unable to be weaned. Family decided on terminal extubation and no artificial means of nutrition, status post terminal extubation. Code status was changed to DNR/DNI with comfort measures only. Antibiotics were discontinued. All unnecessary medications stopped. The patient currently was only on supplemental oxygen, pain management, Robinul for control of secretion and Haldol as needed. Bowel regimen continued. Skin care provided. The patient had left sacral decubitus stage present on admission, which was seen by wound care nurse and wound care provided in the hospital as per wound care nurse recommendation to be continued at halfway facility. The patient was stable for discharge. Condition poor. DISCHARGE DIAGNOSES: 1. Acute hypercapnic respiratory failure requiring intubation. 2. Status post terminal intubation. 3. Sepsis. 4. Aspiration pneumonia, Staphylococcus aureus. 5. Probable urinary tract infection. 6. Acute on chronic encephalopathy. 7. Alzheimer dementia. 8. Chronic obstructive pulmonary disease. 9. Malfunctioning gastrostomy tube (pulled out). 10. Dysphagia. 11. Diabetes mellitus. 12. Chronic diastolic dysfunction. 13. Parkinson disease. 14. Severe protein-calorie malnutrition. 15. Left sacral decubitus stage III, present on admission. 16. History of hypertension. DISCHARGE MEDICATIONS: See medication reconciliation list. DISCHARGE INSTRUCTIONS: The patient was discharged to halfway facility with comfort care, DNR/DNI status, and prognosis poor. Gino Cordova M.D. I have been assigned to dictate discharge summary on this account and I was not involved in the patient's management. Ruth bergjoelle) N.PLucas DR: Arcadio JOB#: [id number] CC:
== END 2017-06-11 20:50 | DRG 208 ==
LOC: EDBD 22:05 → EMR 22:42 → EDBEDREQ 23:24 → 2E 23:33 → EDBEDREQ 23:59 → 2E 06-07 00:36 → 2W 06-07 21:27 → ICU 06-09 00:28 → 4E 06-10 17:09
PROC: 5A09357 Assistance with Respiratory Ventilation, Less than 24 Consecutive Hours, Continuous Positive Airway Pressure (ICD-10-PCS; 2017-06-08)
PROC: 0BH17EZ Insertion of Endotracheal Airway into Trachea, Via Natural or Artificial Opening (ICD-10-PCS; principal; 2017-06-09)
PROC: 5A1945Z Respiratory Ventilation, 24-96 Consecutive Hours (ICD-10-PCS; 2017-06-09)
DX: J69.0 Pneumonitis due to inhalation of food and vomit (principal); J96.02 Acute respiratory failure with hypercapnia; E43 Unspecified severe protein-calorie malnutrition; I50.33 Acute on chronic diastolic (congestive) heart failure; A41.9 Sepsis, unspecified organism; K94.23 Gastrostomy malfunction; I08.1 Rheumatic disorders of both mitral and tricuspid valves; L89.153 Pressure ulcer of sacral region, stage 3; N39.0 Urinary tract infection, site not specified; Z43.1 Encounter for attention to gastrostomy; Z51.5 Encounter for palliative care; Z66 Do not resuscitate; G30.9 Alzheimer's disease, unspecified; F02.80 Dementia in other diseases classified elsewhere, unspecified severity, without behavioral disturbance, psychotic disturbance, mood disturbance, and anxiety; G20 Parkinson's disease; R13.10 Dysphagia, unspecified; I10 Essential (primary) hypertension; E03.9 Hypothyroidism, unspecified; Z86.73 Personal history of transient ischemic attack (TIA), and cerebral infarction without residual deficits; Z88.6 Allergy status to analgesic agent; Z88.0 Allergy status to penicillin; Z88.2 Allergy status to sulfonamides; Z88.8 Allergy status to other drugs, medicaments and biological substances; Z96.643 Presence of artificial hip joint, bilateral; M48.00 Spinal stenosis, site unspecified; Y83.3 Surgical operation with formation of external stoma as the cause of abnormal reaction of the patient, or of later complication, without mention of misadventure at the time of the procedure; J15.211 Pneumonia due to Methicillin susceptible Staphylococcus aureus; J44.9 Chronic obstructive pulmonary disease, unspecified
CPT/HCPCS: 36415; 36600; 71010; 80053; 80061; 80076; 80202; 81003; 82550; 82553; 82607; 82746; 82803; 83036; 83605; 83690; 83735; 83880; 83930; 83935; 84100; 84300; 84443; 84484; 84550; 85025; 85610; 85730; 86140; 87040; 87070; 87086; 87181; 87205; 93005; 93306; 94002; 94003; 94640; 94660; 94664; 94760; J7620